=== PATIENT | female | born 1940 | race Caucasian/White ===

== ENCOUNTER → 2018-01-03 | Outpatient (CLI) | payer OTHER ==
[~2018-01-03] MED LIST: OPTIRAY 320 IV PRN
--- NOTE | 2018-01-03 12:20 | DIAGNOSTIC IMAGING REPORT ---
CHEST CTA for PULMONARY ARTERIES CT DOSE: 462.17 mGycm HISTORY: Dyspnea on exertion. TECHNIQUE: Multiaxial CT images of the chest were performed following the intravenous administration of contrast to evaluate the pulmonary arteries. Maximal intensity projection images were also obtained. A dose lowering technique was utilized adhering to the principles of ALARA. COMPARISON STUDY: None. FINDINGS: There is a 3 cm left thyroid nodule. Anterior midline subcutaneous catheter is partially visualized. Mild superior endplate compression deformities from T9 through T11. This is technically age indeterminate but likely old. No definite acute fractures identified. No pneumothorax. The central airways are patent. A few scattered linear densities within the lower lung zones. This favors scarring or subsegmental atelectasis. Otherwise, no focal lung consolidations to suggest pneumonia. The visualized liver and spleen are unremarkable. No mediastinal or hilar lymphadenopathy. No pleural or pericardial effusions. The heart is normal in size. Mild calcified plaque within the normal caliber thoracic aorta. No evidence for an aortic dissection. No filling defects within the pulmonary arteries to suggest pulmonary embolus. IMPRESSION: 1. No evidence for pulmonary embolus. 2. A 3 cm left thyroid nodule. Follow-up nonemergent thyroid ultrasound is recommended for further evaluation. 3. Mild superior endplate compression deformities from T9 through T11. These are technically age-indeterminate but likely old. Electronically signed by: Jarad Warner M.D. 01/03/2018 12:19 PM Dictated Date/Time: 01/03/2018 12:05 PM
[2018-01-03 14:50] LABS: BLOOD UREA NITROGEN 26 mg/dl (7-18); CALCIUM 9.4 mg/dl (8.5-10.1); CARBON DIOXIDE 29 mmol/L (21-32); CREATININE 0.72 mg/dl (0.60-1.20); GLUCOSE 85 mg/dl (70-99); POTASSIUM 4.1 mmol/L (3.5-5.1); SODIUM 139 mmol/L (136-145)
[2018-01-03 15:35] LABS: HEMATOCRIT 37.9 % (37-47); HEMOGLOBIN 12.6 g/dL (12.0-16.0); MEAN CELL VOLUME 93.8 fL (80-100); MEAN CORPUSCULAR HEMOGLOBIN 31.2 pg (25-34); MEAN CORPUSCULAR HGB CONC 33.2 g/dl (32-36); MEAN PLATELET VOLUME 13.9 fL (7.4-10.4); PLATELET COUNT 110 K/uL (130-400); RED CELL DISTRIBUTION WIDTH SD 48.2 fL (36.4-46.3); WHITE BLOOD COUNT 4.29 K/uL (4.8-10.8)
== END | disposition home or self-care (01) ==
LOC: C.CTS 11:16
PROVIDERS: ATTEND Internal Medicine
DX: R06.09 Other forms of dyspnea (principal); I10 Essential (primary) hypertension; E04.1 Nontoxic single thyroid nodule; M43.8X4 Other specified deforming dorsopathies, thoracic region

== ENCOUNTER 2020-04-14 15:38 | Inpatient (IN) ==
[2020-04-14] MEDS ORDERED: METOCLOPRAMIDE HCL INJ 5 MG/ML 2 ML VIAL IV STA (15:51)
[2020-04-14] MEDS ORDERED: FAMOTIDINE 20MG/5ML IV PUSH IV STA (15:51)
[2020-04-14] MEDS ORDERED: DiphenhydrAMINE HCL 50 MG/ML VIAL IV STA (15:51)
[2020-04-14] MEDS ORDERED: SODIUM CHLORIDE 0.9% 1000ML 1,000 ML IV ONE ×2 (15:55→21:06)
[2020-04-14 16:03] LABS: Mean Corpuscular Hgb Conc 33.3 g/dL (32-36)
[2020-04-14 16:10] LABS: Hematocrit (blood only) 38.1 % (37-47); Hemoglobin 12.7 g/dL (12.0-16.0); Mean Corpuscular Hemoglobin 30.8 pg (25-34); Mean Corpuscular Volume 92.3 fL (80-100); RDW Coefficient of Variation 13.7 % (11.5-14.5); RDW Standard Deviation 46.2 fL (36.4-46.3); Red Blood Count 4.13 M/uL (4.2-5.4); White Blood Count 8.04 K/uL (4.8-10.8)
[2020-04-14 16:17] LABS: INR 1.1 (0.9-1.1); Partial Thromboplastin Ratio 0.8; Partial Thromboplastin Time 21.7 Seconds (21.0-31.0); Prothrombin Time 11.4 Seconds (9.0-12.0)
--- NOTE | 2020-04-14 16:19 | XRay Report ---
XR chest 1V portable CLINICAL HISTORY: Atypical chest pain COMPARISON STUDY: 03/09/2020 FINDINGS: The heart is the upper limits of normal in size. There is mild interstitial thickening, lik alissa chronic. There is no lobar consolidation. There is a presumed shunt catheter visualized coursing across the chest.[There are no pleural effusions. IMPRESSION: No active disease in the chest. ACT 112: Negative or not required by law. Electronically signed by: Phoenix Escobar M.D. 04/14/2020 4:18 PM
[2020-04-14 16:26] LABS: Basophils # (auto) 0.02 K/uL (0-0.2); Basophils % (auto) 0.2 %; Eosinophils % (auto) 1.2 %; Immature Granulocytes # (auto) 0.02 K/uL (0.00-0.02); Immature Granulocytes % (auto) 0.2 %; Lymphocytes # (auto) 1.87 K/uL (1.2-3.4); Lymphocytes % (auto) 23.3 %; Monocytes # (auto) 0.44 K/uL (0.11-0.59); Monocytes % (auto) 5.5 %; Neutrophils # (auto) 5.59 K/uL (1.4-6.5); Neutrophils % (auto) 69.6 %; Platelet Count 123 K/uL (130-400); Platelet Estimate Decreased (Normal)
[2020-04-14 16:45] LABS: Alanine Aminotransferase 18 U/L (12-78); Albumin Level 3.4 gm/dl (3.4-5.0); Alkaline Phosphatase 75 U/L (45-117); BUN Creatinine Ratio 24.7 (10-20); Blood Urea Nitrogen 23 mg/dl (7-18); Calcium 9.3 mg/dl (8.5-10.1); Carbon Dioxide 21 mmol/L (21-32); Chloride 111 mmol/L (98-107); Creatinine Clr Calc Pharmacy 65.8 ml/min; Est GFR (African American) 67.8; Est GFR (Non-African American) 58.5; Globulin 3.3 gm/dl (2.5-4.0); Glucose 117 mg/dl (70-99); Lipase 91 U/L (73-393); Phosphorus 2.9 mg/dl (2.5-4.9); Sodium 142 mmol/L (136-145); Total Protein 6.7 gm/dl (6.4-8.2); Troponin I < 0.015 ng/ml (0-0.045)
[2020-04-14 17:09] LABS: Potassium 4.2 mmol/L (3.5-5.1)
[2020-04-14 17:14] LABS: Bilirubin Direct 0.2 mg/dl (0-0.2); Magnesium 2.4 mg/dl (1.8-2.4)
[2020-04-14] MEDS ORDERED: IOVERSOL 100ml IV ONE (17:14)
--- NOTE | 2020-04-14 17:34 | CT Scan Report ---
ABDOMEN AND PELVIS CT WITH IV CONTRAST CT DOSE: 985.59 mGy.cm HISTORY: Acute generalized abdominal pain with nausea and vomiting abd pain n/v TECHNIQUE: Multiaxial CT images of the abdomen and pelvis were performed following the IV administrat ion of 92 cc of Optiray 320, A dose lowering technique was utilized adhering to the principles of AL STEPH. COMPARISON STUDY: Chest radiograph of same day FINDINGS: Mild linear subsegmental bibasilar atelectasis/scarring. There is no pneumatosis or pneumoperitoneum. Imaged inferior cardiac chambers are unremarkable. The spleen, pancreas and adrenal glands are unrem arkable. Cholecystectomy. Intrahepatic and extrahepatic biliary ductal dilation is likely on a postsu rgical basis. The liver is otherwise unremarkable. Patency of the hepatic and portal veins. Renal sinus cysts are noted bilaterally. There is a punctate cortical calcification of the inferior p ole left kidney. Unremarkable urinary bladder. 1.2 cm calcified structure of the left hemipelvis is s uggestive of a calcified uterine fibroid. Mixed plaque of the abdominal aorta without aneurysm. No ad enopathy. There is a shunt catheter noted along the subcutaneous anterior abdomen which appears intact and coil s within the pelvis, distal tip within the mid central pelvis. Trace pelvic ascites is suggestive of functioning catheter. Small hiatal hernia. No bowel obstruction. Moderate fecal retention results in distention of the distal sigmoid and rectum. There is mild stranding surrounding the descending and s igmoid colon. Fluid-filled cecum. Noninflamed appendix. Scattered small bowel air-fluid levels. Soft tissues are unremarkable. Degenerative changes of the spine, pelvis and hips. Age-indeterminate howev er likely remote compression deformities at T11, L1, L3 and L4. Indeterminate ill-defined sclerosis i nvolves the left pedicle at T10. IMPRESSION: 1. Moderate fecal retention. Mild stranding surrounds the descending and sigmoid colon, equivocal for a mild associated colitis. 2. No small bowel obstruction. Scattered small bowel air-fluid levels are likely physiologic. A mild enteritis or ileus could appear similarly. 3. Noninflamed appendix. 4. Ventriculoperitoneal shunt catheter distal tip terminates in the pelvis. Trace pelvic ascites sugg ests functioning catheter. 5. Additional findings as above. ACT 112: Negative or not required by law. The above report was generated using voice recognition software. It may contain grammatical, syntax o r spelling errors. Electronically signed by: Chema Smiley M.D. 04/14/2020 5:33 PM
--- NOTE | 2020-04-14 18:14 | Emergency Department Note ---
Impression & Plan Colitis, Acute dehydration, Nausea & vomiting, Hematochezia ED Provider Note NAME: MATT BIANCHI AGE: 79 SEX: F ARRIVES VIA: Ambulance INFORMANT: Patient, ED PROVIDER(S): Cecil Espinosa MD CHIEF COMPLAINT: Abdominal pain, n/v PLAN: Disposition: Admit MEDICAL DECISION MAKING: The patient is a pleasant 79-year-old woman with a past medical history of hypertension, osteoarthritis, asthma, herniated disc, self-report of history of IBS where she reports episodes of abdominal pain with nausea who presents emergency department with acute onset of nausea and vomiting when she was eating a salad at [employer] and began to feel lightheaded. EMS found patient to have hypotensive in the 80s with heart rate in the 40s-50s which improved with IV fluid hydration. She reports feeling healthy prior to today and denies fevers, chills, cough congestion, chest pain, shortness of breath, headaches or dizziness. On arrival patient is uncomfortable but no acute distress, afebrile stable vital signs. She has generalized abdominal discomfort without discrete tenderness. EKG without overt acute ischemia. Chest x-ray negative acute process. WBC, H/H within normal limits. Platelets 123, similar to prior values. Chemistry without acidosis. Electrolytes and LFTs unremarkable. Troponin negative/undetectable. Lipase is not elevated. CT of abdomen pelvis demonstrates moderate fecal retention with stranding around the descending and sigmoid colon suggestive of colitis. Additional note of evidence of mild enteritis or ileus. Appendix is unremarkable. Upon reevaluation the patient was feeling significantly improved. Of note, she did have a formed brown stool but did have some scant amount of blood with this. There was no gross hemorrhage. Initially though to be related to straining which she reported as she did have a small anal fissure though hemorrhagic colitis versus internal hemorrhoid are also possible. However given she is improved with stable vital signs and the patient preferred to go home we did agree to con hot oiler outpatient follow-up. However the patient then did have another bowel movement this time more herve blood. At this time I did perform a rectal exam which did not demonstrate any significant gross blood from the rectum though did have stool that was Hemoccult positive. Suspect the patient's source of bleeding is likely more proximal consistent with the patient's colitis. Thus, given the patient's GI bleeding reasonable to admit the patient for further management. Stool cx and Cdiff order. The patient and daughter at bedside are agreeable at this time. Case was discussed with Dr. Overton, [facility] hospitalist, who will evaluate the patient for admission. Triage Nursing notes reviewed and agree them. Prior medical records reviewed Vital Signs: reviewed and remarkable for no significant abnormalities Differential diagnosis: Appendicitis, ovarian cyst, ovarian torsion, ectopic , TOA, PID, infections, diverticulitis, UTI, obstruction, mesenteric ischemia, aortic pathology, inflammatory bowel disease, renal colic, PUD, pancreatitis, biliary pathology, hernia, volvulus, constipation, as well as other pathologies. ER treatment provided: See below. Diagnostics interpreted by me: ECG: Sinus bradycardia, 51 bpm, no ectopy, no overt ST elevation or depression, QTC 453, QRS 92. Cardiac Monitoring: An order for continuous cardiac monitoring was placed and demonstrated Sinus bradycardia, 51 bpm, no ectopy. Laboratory studies: See below Imaging studies: XR chest 1V portable CLINICAL HISTORY: Atypical chest pain COMPARISON STUDY: 03/09/2020 FINDINGS: The heart is the upper limits of normal in size. There is mild interstitial thickening, likely chronic. There is no lobar consolidation. There is a presumed shunt catheter visualized coursing across the chest.[There are no pleural effusions. IMPRESSION: No active disease in the chest. ABDOMEN AND PELVIS CT WITH IV CONTRAST CT DOSE: 985.59 mGy.cm HISTORY: Acute generalized abdominal pain with nausea and vomiting abd pain n/v TECHNIQUE: Multiaxial CT images of the abdomen and pelvis were performed following the IV administration of 92 cc of Optiray 320, A dose lowering xuan hnique was utilized adhering to the principles of ALARA. COMPARISON STUDY: Chest radiograph of same day FINDINGS: Mild linear subsegmental bibasilar atelectasis/scarring. There is no pneumatosis or pneumoperitoneum. Imaged inferior cardiac chambers are unremarkable. The spleen, pancreas and adrenal glands are unremarkable. Cholecystectomy. Intrahepatic and extrahepatic biliary ductal dilation is likely on a postsurgical basis. The liver is otherwise unremarkable. Patency of the hepatic and portal veins. Renal sinus cysts are noted bilaterally. There is a punctate cortical calcification of the inferior pole left kidney. Unremarkable urinary bladder. 1.2 cm calcified structure of the left hemipelvis is suggestive of a calcified uterine fibroid. Mixed plaque of the abdominal aorta without aneurysm. No adenopathy. There is a shunt catheter noted along the subcutaneous anterior abdomen which appears intact and coils within the pelvis, distal tip within the mid central pelvis. Trace pelvic ascites is suggestive of functioning catheter. Small hiatal hernia. No bowel obstruction. Moderate fecal retention results in distention of the distal sigmoid and rectum. There is mild stranding surrounding the descending and sigmoid colon. Fluid-filled cecum. Noninflamed appendix. Scattered small bowel air-fluid levels. Soft tissues are unremarkable. Degenerative changes of the spine, pelvis and hips. Age-indeterminate however likely remote compression deformities at T11, L1, L3 and L4. Indeterminate ill- defined sclerosis involves the left pedicle at T10. IMPRESSION: 1. Moderate fecal retention. Mild stranding surrounds the descending and sigmoid colon, equivocal for a mild associated colitis. 2. No small bowel obstruction. Scattered small bowel air-fluid levels are likely physiologic. A mild enteritis or ileus could appear similarly. 3. Noninflamed appendix. 4. Ventriculoperitoneal shunt catheter distal tip terminates in the pelvis. Trace pelvic ascites suggests functioning catheter. 5. Additional findings as above. Consultation(s): Case was discussed with Dr. Overton, [facility] hospitalist, who will evaluate the patient for admission. HPI: The patient is a pleasant 79-year-old woman with a past medical history of hypertension, osteoarthritis, asthma, herniated disc, self-report of history of IBS where she reports episodes of abdominal pain with nausea who presents emergency department with acute onset of nausea and vomiting when she was eating a salad at [facility] and began to feel lightheaded. EMS found patient to have hypotension in the 80s with heart rate in the 40s-50s which improved with IV fluid hydration. She reports feeling healthy prior to today and denies fevers, chills, cough congestion, chest pain, shortness of breath, headaches or dizziness. ROS: See above HPI for pertinent positives & negatives. A total of 10 systems reviewed and were otherwise negative. PAST MEDICAL HISTORY:See Below PAST SURGICAL HISTORY:See Below FAMILY HISTORY:See Below SOCIAL HISTORY:See Below HOME MEDICATIONS:See Below ALLERGIES:See Below VITALS:See Below PHYSICAL EXAMINATION: GENERAL: Awake, alert, uncomfortable-appearing, in no distress HENT: Normocephalic, atraumatic. Oropharynx with dry mucous membranes and otherwise unremarkable. EYES: Normal conjunctiva. Sclera non-icteric. NECK: Supple. No nuchal rigidity. FROM. No JVD. RESPIRATORY: Clear to auscultation. CARDIAC: Regular rate, normal rhythm. Extremities warm and well perfused. Pulses equal. ABDOMEN: Soft, non-distended. Generalized abdominal discomfort without discrete tenderness to palpation. No rebound or guarding. No masses. RECTAL: Scant brown stool, scant streaks of red blood, hemoccult positive. small punctate anal fissure @ 12 o'clock position. MUSCULOSKELETAL: Chest examination reveals no tenderness. The back is symmetrical on inspection without obvious abnormality. There is no CVA tenderness to palpation. No joint edema. LOWER EXTREMITIES: Calves are equal size bilaterally and non-tender. No edema. No discoloration. NEURO: Normal sensorium. No sensory or motor deficits noted. SKIN: No rash or jaundice noted. Cecil Espinosa MD Past Med/Surg History Medical History Asthma RARELY USES PRN INH Hearing deficit BL JONES History of benign breast biopsy History of hydrocephalus S/P SHUNT PLACEMENT - 2014 - CAUSE? Hypertension Osteoarthritis SOB (shortness of breath) on exertion Valvular heart disease PT UNABLE TO PROVIDE SPECIFICS - DOES NOT FOLLOW W/ CARDIO - PCP MONITORING - ECHO DONE SPRING 2018 [facility] Surgical History History of back surgery LUMBAR History of cataract surgery History of cholecystectomy History of colonoscopy History of esophagogastroduodenoscopy (EGD) History of hammertoe correction History of lumpectomy History of oophorectomy, unilateral History of sinus surgery Presence of intracranial shunt Social History Smoking Status: Never smoker Second Hand Exposure: Yes ( A CHILD); Hx Alcohol Use: No Hx Substance Use: No Preferred Language: Malay Communication Ability: Effective Lance Crewmember Required: No Beliefs That Will Affect Care: None Current Living Situation: Alone Other Information That Helps Us Care for You: No Feels Safe at Home: Yes Safety Concerns: Feels Safe At This Time Allergies Allergies Allergy/AdvReac Type Severity Reaction Status Date / Time latex Allergy Unknown ITCHING Verified 04/14/20 19:10 Penicillins Allergy Unknown SOB/HIVES Verified 04/14/20 19:10 vancomycin Allergy Unknown Rash Verified 04/14/20 19:10 codeine AdvReac Unknown Drowsy Verified 04/14/20 19:10 Home Meds Home Medications Medication Instructions Recorded Confirmed aspirin 81 mg PO QAM 03/20/19 04/14/20 calcium carbonate [Calcium 600] 600 mg PO BID 03/20/19 04/14/20 cetirizine 5 mg PO QPM 03/20/19 04/14/20 cholecalciferol (vitamin D3) 1,000 unit PO QAM 03/20/19 04/14/20 [Vitamin D3] lisinopril 10 mg PO QPM 03/20/19 04/14/20 multivitamin 1 tab PO QAM 03/20/19 04/14/20 baclofen 10 mg PO BID PRN 04/14/20 04/14/20 budesonide-formoterol [Symbicort] 2 puff INHALATION BID PRN 04/14/20 04/14/20 fluoxetine 20 mg PO HS 04/14/20 04/14/20 fluticasone propion-salmeterol 1 inh INHALATION BID PRN 04/14/20 04/14/20 [Advair Diskus] fluticasone propionate 2 spray INTRANASAL DAILY PRN 04/14/20 04/14/20 montelukast 10 mg PO HS 04/14/20 04/14/20 Previous Rx's Medication Instructions Recorded famotidine 20 mg PO BID #20 tab 04/14/20 ondansetron 4 mg PO Q6H PRN #14 tab 04/14/20 Results & Data (ED) Vital Signs Vital Signs - 24 hr 04/14/20 15:43 04/14/20 16:00 04/14/20 16:17 Temperature 36.4 C L Temperature Source Oral Pulse Rate 55 L Pulse Rate [Apical] 52 L Respiratory Rate 18 18 Respiratory Effort / Characteristics Respiratory Depth Blood Pressure 121/58 L Blood Pressure [Right Arm] 121/74 Blood Pressure Mean 79 Blood Pressure Mean [Right Arm] 89 Pulse Oximetry 99 98 98 Oxygen Delivery Method Room Air Room Air Room Air Sepsis Recent Fever Within 48 Hours No Sepsis New/Unexplained Change in Mental Status N/A Sepsis Action Taken by Nursing No Action Required 04/14/20 16:58 04/14/20 17:33 04/14/20 18:31 Temperature Temperature Source Pulse Rate Pulse Rate [Apical] 65 63 66 Respiratory Rate 18 18 18 Respiratory Effort / Characteristics Non-Labored Non-Labored Respiratory Depth Normal Normal Blood Pressure Blood Pressure [Right Arm] 109/54 L 167/79 H 156/65 H Blood Pressure Mean Blood Pressure Mean [Right Arm] 72 108 95 Pulse Oximetry 98 99 98 Oxygen Delivery Method Room Air Room Air Room Air Sepsis Recent Fever Within 48 Hours Sepsis New/Unexplained Change in Mental Status Sepsis Action Taken by Nursing 04/14/20 19:15 04/14/20 20:04 Temperature Temperature Source Pulse Rate Pulse Rate [Apical] 68 71 Respiratory Rate 18 18 Respiratory Effort / Characteristics Respiratory Depth Blood Pressure Blood Pressure [Right Arm] 146/93 H 153/62 H Blood Pressure Mean Blood Pressure Mean [Right Arm] 110 92 Pulse Oximetry 98 98 Oxygen Delivery Method Room Air Room Air Sepsis Recent Fever Within 48 Hours Sepsis New/Unexplained Change in Mental Status Sepsis Action Taken by Nursing Laboratory Data Attestation: I reviewed the patient's lab results. Result diagrams: 04/14/20 20:34 Lab Results 04/14/20 04/14/20 04/14/20 Range/Units 15:50 15:50 15:50 WBC 8.04 (4.8-10.8) K/uL RBC 4.13 L (4.2-5.4) M/uL Hgb 12.7 (12.0-16.0) g/dL Hct 38.1 (37-47) % MCV 92.3 (80-100) fL MCH 30.8 (25-34) pg MCHC 33.3 (32-36) g/dL RDW Std Deviation 46.2 (36.4-46.3) fL RDW Coeff of Evelyn 13.7 (11.5-14.5) % Plt Count 123 L (130-400) K/uL Immature Gran % (Auto) 0.2 % Neut % (Auto) 69.6 % Lymph % (Auto) 23.3 % [place] % (Auto) 5.5 % Eos % (Auto) 1.2 % Baso % (Auto) 0.2 % Neut # (Auto) 5.59 (1.4-6.5) K/uL Lymph # (Auto) 1.87 (1.2-3.4) K/uL [place] # (Auto) 0.44 (0.11-0.59) K/uL Eos # (Auto) 0.10 (0-0.5) K/uL Baso # (Auto) 0.02 (0-0.2) K/uL Immature Gran # (Auto) 0.02 (0.00-0.02) K/uL Platelet Estimate Decreased L (Normal) PT 11.4 (9.0-12.0) Seconds INR 1.1 (0.9-1.1) APTT 21.7 (21.0-31.0) Seconds PTT Ratio 0.8 Sodium 142 (136-145) mmol/L Potassium TNP Chloride 111 H (98-107) mmol/L Carbon Dioxide 21 (21-32) mmol/L Anion Gap 10.0 (3-11) BUN 23 H (7-18) mg/dl Creatinine 0.94 (0.6-1.2) mg/dl Est Cr Clr Drug Dosing 65.8 ml/min Est GFR ( Amer) 67.8 Est GFR (Non-Af Amer) 58.5 BUN/Creatinine Ratio 24.7 H (10-20) Glucose 117 H (70-99) mg/dl Calcium 9.3 (8.5-10.1) mg/dl Phosphorus 2.9 (2.5-4.9) mg/dl Magnesium TNP Total Bilirubin 1.0 (0.2-1) mg/dl Direct Bilirubin TNP AST TNP ALT 18 (12-78) U/L Alkaline Phosphatase 75 (45-117) U/L Troponin I < 0.015 (0-0.045) ng/ml Total Protein 6.7 (6.4-8.2) gm/dl Albumin 3.4 (3.4-5.0) gm/dl Globulin 3.3 (2.5-4.0) gm/dl Albumin/Globulin Ratio 1.0 (0.9-2) Lipase 91 (73-393) U/L TSH 2.110 (0.300-4.500) uIu/ml Stl C. diff Tox B Gene (Neg) 04/14/20 04/14/20 Range/Units 16:45 19:15 WBC (4.8-10.8) K/uL RBC (4.2-5.4) M/uL Hgb (12.0-16.0) g/dL Hct (37-47) % MCV (80-100) fL MCH (25-34) pg MCHC (32-36) g/dL RDW Std Deviation (36.4-46.3) fL RDW Coeff of Evelyn (11.5-14.5) % Plt Count (130-400) K/uL Immature Gran % (Auto) % Neut % (Auto) % Lymph % (Auto) % [place] % (Auto) % Eos % (Auto) % Baso % (Auto) % Neut # (Auto) (1.4-6.5) K/uL Lymph # (Auto) (1.2-3.4) K/uL [place] # (Auto) (0.11-0.59) K/uL Eos # (Auto) (0-0.5) K/uL Baso # (Auto) (0-0.2) K/uL Immature Gran # (Auto) (0.00-0.02) K/uL Platelet Estimate (Normal) PT (9.0-12.0) Seconds INR (0.9-1.1) APTT (21.0-31.0) Seconds PTT Ratio Sodium (136-145) mmol/L Potassium 4.2 Chloride (98-107) mmol/L Carbon Dioxide (21-32) mmol/L Anion Gap (3-11) BUN (7-18) mg/dl Creatinine (0.6-1.2) mg/dl Est Cr Clr Drug Dosing ml/min Est GFR ( Amer) Est GFR (Non-Af Amer) BUN/Creatinine Ratio (10-20) Glucose (70-99) mg/dl Calcium (8.5-10.1) mg/dl Phosphorus (2.5-4.9) mg/dl Magnesium 2.4 Total Bilirubin (0.2-1) mg/dl Direct Bilirubin 0.2 AST 13 L ALT (12-78) U/L Alkaline Phosphatase (45-117) U/L Troponin I (0-0.045) ng/ml Total Protein (6.4-8.2) gm/dl Albumin (3.4-5.0) gm/dl Globulin (2.5-4.0) gm/dl Albumin/Globulin Ratio (0.9-2) Lipase (73-393) U/L TSH (0.300-4.500) uIu/ml Stl C. diff Tox B Gene Negative Cdiff Gene (Neg) Administered Medications Cetirizine HCl (Cetirizine Hcl 10 Mg Tablet) 5 mg PO QPM JULIET Stop: 05/14/20 21:59 Last Admin: 04/14/20 22:15 Dose: 5 mg Documented by: [id number] Fluoxetine HCl (Fluoxetine Hcl 20 Mg Cap) 20 mg PO HS JULIET Stop: 05/14/20 21:59 Last Admin: 04/14/20 22:15 Dose: 20 mg Documented by: [id number] Sodium Chloride (Nss 1000ml) 1,000 mls @ 75 mls/hr IV .[id number] ONE Stop: 04/15/20 10:25 Last Admin: 04/14/20 21:30 Dose: 75 mls/hr Documented by: [id number] Promethazine HCl 12.5 mg/ (Sodium Chloride) 50.5 mls @ 202 mls/hr IV Q6H PRN PRN Reason: Nausea And Vomiting Stop: 05/14/20 21:05 Last Infusion: 04/14/20 22:33 Dose: 0 mls/hr Documented by: [id number] Admin: 04/14/20 22:14 Dose: 202 mls/hr Documented by: [id number] Lisinopril (Lisinopril 2.5 Mg Tab) 2.5 mg PO QPM JULIET Stop: 05/14/20 21:59 Last Admin: 04/14/20 22:14 Dose: 2.5 mg Documented by: [id number] Montelukast Sodium (Montelukast Sodium 10 Mg Tablet) 10 mg PO JULIET Stop: 05/14/20 21:59 Last Admin: 04/14/20 22:14 Dose: 10 mg Documented by: [id number] Discontinued Medications Diphenhydramine HCl (Diphenhydramine Hcl 50 Mg/Ml Vial) 25 mg IV NOW STA Stop: 04/14/20 15:52 Last Admin: 04/14/20 16:16 Dose: 25 mg Documented by: [id number] Famotidine (Famotidine 20mg/5ml Iv Push) 20 mg IV ONE STA Stop: 04/14/20 15:52 Last Admin: 04/14/20 16:16 Dose: 20 mg Documented by: [id number] Sodium Chloride (Nss 1000ml) 1,000 mls @ 999 mls/hr IV .[id number] ONE Stop: 04/14/20 16:55 Last Infusion: 04/14/20 17:15 Dose: 0 mls/hr Documented by: [id number] Admin: 04/14/20 16:15 Dose: 999 mls/hr Documented by: [id number] Ioversol (Ioversol 100ml) 92 ml IV ONCE ONE Stop: 04/14/20 17:15 Last Admin: 04/14/20 17:15 Dose: 92 ml Documented by: [id number] Metoclopramide HCl (Metoclopramide Hcl Inj 5 Mg/Ml 2 Ml Vial) 10 mg IV NOW STA Stop: 04/14/20 15:52 Last Admin: 04/14/20 16:16 Dose: 10 mg Documented by: [id number] Ondansetron HCl (Ondansetron Home Pack 4mg Od Tab) 1 homepack PO NOW ONE Stop: 04/14/20 18:49 Last Admin: 04/14/20 19:21 Dose: Not Given Documented by: [id number] Blood Pressure Blood Pressure Findings: Elevated blood pressure Blood Pressure Disposition: elevated BP felt to be situational Discharge Plan Visit Data Chief Complaint: Vomiting Stated Complaint: VOMITING ED Provider: Cecil Espinosa Discharge Problem: Colitis, Acute dehydration, Nausea & vomiting, Hematochezia Patient Disposition: Admitted As Inpatient Condition: Good Discharge Instructions Interventions: ED Discharge Assessment Last Done: 04/14/20 20:42 Discharge Problem: Nausea & vomiting Qualifiers: Vomiting type: unspecified Vomiting Intractability: non-intractable Qualified Code(s): R11.2 - Nausea with vomiting, unspecified
[2020-04-14] MEDS ORDERED: ONDANSETRON HOME PACK 4MG OD TAB PO ONE (18:48)
--- NOTE | 2020-04-14 20:05 | History & Physical Report ---
Date of Service April 14, 2020 Assessment & Plan (1) Colitis: Hemorrhagic colitis secondary to foodborne illness Patient not septic for now. Currently hemodynamically stable after initial fluid resuscitation. 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 It may contain grammatical or spelling errors. Kindly contact undersigned for clarification of any documentation item in question. History of Present Illness Chief Complaint: Abdominal pain Primary Care Provider: Tosin Art MD History obtained from patient, family, and records. 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 Patient developed sudden onset achy abdominal discomfort associated with emesis 30 minutes after consuming a salad but from a local restaurant. Patient initially constipated at home. Lightheadedness symptoms made patient lie down on the floor. EMS called. Initial SBP 80s. Patient denies chest pain, S OB. No known sick contacts/ recent out-of-town travel/antibiotic Rx.. Patient brought to the ER for evaluation. Has had 3 bloody bowel movements since. Medical History as above 2018 normal colonoscopy Surgical History : CEMENT TESTER ASSISTANT shunt placement, breast lesion excision, oophorectomy, cataract surgery, cholecystectomy Family History : Breast cancer, mitral valve prolapse Personal/Social history : Non-smoker, no EtOH intake, homemaker in her younger years Allergies Allergy/AdvReac Type Severity Reaction Status Date / Time latex Allergy Unknown ITCHING Verified 04/14/20 19:10 Penicillins Allergy Unknown SOB/HIVES Verified 04/14/20 19:10 vancomycin Allergy Unknown Rash Verified 04/14/20 19:10 codeine AdvReac Unknown Drowsy Verified 04/14/20 19:10 Home Medications Home Medications Medication Instructions Recorded Confirmed Type aspirin 81 mg PO QAM 03/20/19 04/14/20 History calcium carbonate [Calcium 600] 600 mg PO BID 03/20/19 04/14/20 History cetirizine 5 mg PO QPM 03/20/19 04/14/20 History cholecalciferol (vitamin D3) 1,000 unit PO QAM 03/20/19 04/14/20 History [Vitamin D3] lisinopril 10 mg PO QPM 03/20/19 04/14/20 History multivitamin 1 tab PO QAM 03/20/19 04/14/20 History baclofen 10 mg PO BID PRN 04/14/20 04/14/20 History budesonide-formoterol [Symbicort] 2 puff INHALATION BID PRN 04/14/20 04/14/20 History famotidine 20 mg PO BID #20 tab 04/14/20 Rx fluoxetine 20 mg PO HS 04/14/20 04/14/20 History fluticasone propion-salmeterol 1 inh INHALATION BID PRN 04/14/20 04/14/20 History [Advair Diskus] fluticasone propionate 2 spray INTRANASAL DAILY PRN 04/14/20 04/14/20 History montelukast 10 mg PO HS 04/14/20 04/14/20 History ondansetron 4 mg PO Q6H PRN #14 tab 04/14/20 Rx Past Med/Surg History Medical History Asthma RARELY USES PRN INH Hearing deficit BL JONES History of benign breast biopsy History of hydrocephalus S/P SHUNT PLACEMENT - 2014 - CAUSE? Hypertension Osteoarthritis SOB (shortness of breath) on exertion Valvular heart disease PT UNABLE TO PROVIDE SPECIFICS - DOES NOT FOLLOW W/ CARDIO - PCP MONITORING - ECHO DONE SPRING 2018 [facility] Surgical History History of back surgery LUMBAR History of cataract surgery History of cholecystectomy History of colonoscopy History of esophagogastroduodenoscopy (EGD) History of hammertoe correction History of lumpectomy History of oophorectomy, unilateral History of sinus surgery Presence of intracranial shunt Social History Smoking Status: Never smoker Second Hand Exposure: Yes ( A CHILD); Hx Alcohol Use: No Hx Substance Use: No Preferred Language: Ukrainian Communication Ability: Effective Cloth Mender Required: No Beliefs That Will Affect Care: None Current Living Situation: Alone Other Information That Helps Us Care for You: No Feels Safe at Home: Yes Safety Concerns: Feels Safe At This Time Review of Systems Review of Systems: As per HPI, all 10 systems reviewed, all other ROS negative Physical Exam Physical Exam: GENERAL: Comfortable, pleasant, slightly hard of hearing, obese, no respiratory distress SKIN: Normal color, warm HEENT: [place] palpebral conjunctivae, no ptosis, dry buccal mucosa NECK : Supple, no tenderness CHEST : CTA, no tenderness HEART : RRR, no obvious murmurs ABDOMEN: Some distention, minimal hypogastric tenderness EXTREMITIES : No LE swelling/tenderness, no other conspicuous deformities noted NEUROLOGIC : Coherent, no facial asymmetry, mild hearing impairment, no other gross focality Results & Data Results & Data ([facility]) Vital Signs (Past 12 Hours) Vital Signs Temp Pulse Pulse Resp BP BP Pulse Ox 04/14/20 20:04 71 18 153/62 H 98 04/14/20 19:15 68 18 146/93 H 98 04/14/20 18:31 66 18 156/65 H 98 04/14/20 17:33 63 18 167/79 H 99 04/14/20 16:58 65 18 109/54 L 98 04/14/20 16:17 52 L 18 121/74 98 04/14/20 16:00 98 04/14/20 15:43 36.4 C L 55 L 18 121/58 L 99 Laboratory Results Laboratory Results WBC 8.04 K/uL (4.8-10.8) 04/14/20 15:50 RBC 4.13 M/uL (4.2-5.4) L 04/14/20 15:50 Hgb 12.7 g/dL (12.0-16.0) 04/14/20 15:50 Hct 38.1 % (37-47) 04/14/20 15:50 MCV 92.3 fL (80-100) 04/14/20 15:50 MCH 30.8 pg (25-34) 04/14/20 15:50 MCHC 33.3 g/dL (32-36) 04/14/20 15:50 RDW Std Deviation 46.2 fL (36.4-46.3) 04/14/20 15:50 RDW Coeff of Evelyn 13.7 % (11.5-14.5) 04/14/20 15:50 Plt Count 123 K/uL (130-400) L 04/14/20 15:50 Immature Gran % (Auto) 0.2 % 04/14/20 15:50 Neut % (Auto) 69.6 % 04/14/20 15:50 Lymph % (Auto) 23.3 % 04/14/20 15:50 [place] % (Auto) 5.5 % 04/14/20 15:50 Eos % (Auto) 1.2 % 04/14/20 15:50 Baso % (Auto) 0.2 % 04/14/20 15:50 Neut # (Auto) 5.59 K/uL (1.4-6.5) 04/14/20 15:50 Lymph # (Auto) 1.87 K/uL (1.2-3.4) 04/14/20 15:50 [place] # (Auto) 0.44 K/uL (0.11-0.59) 04/14/20 15:50 Eos # (Auto) 0.10 K/uL (0-0.5) 04/14/20 15:50 Baso # (Auto) 0.02 K/uL (0-0.2) 04/14/20 15:50 Immature Gran # (Auto) 0.02 K/uL (0.00-0.02) 04/14/20 15:50 Platelet Estimate Decreased (Normal) L 04/14/20 15:50 PT 11.4 Seconds (9.0-12.0) 04/14/20 15:50 INR 1.1 (0.9-1.1) 04/14/20 15:50 APTT 21.7 Seconds (21.0-31.0) 04/14/20 15:50 PTT Ratio 0.8 04/14/20 15:50 Sodium 142 mmol/L (136-145) 04/14/20 15:50 Potassium 4.2 mmol/L (3.5-5.1) 04/14/20 16:45 Chloride 111 mmol/L (98-107) H 04/14/20 15:50 Carbon Dioxide 21 mmol/L (21-32) 04/14/20 15:50 Anion Gap 10.0 (3-11) 04/14/20 15:50 BUN 23 mg/dl (7-18) H 04/14/20 15:50 Creatinine 0.94 mg/dl (0.6-1.2) 04/14/20 15:50 Est Cr Clr Drug Dosing 65.8 ml/min 04/14/20 15:50 Est GFR ( Amer) 67.8 04/14/20 15:50 Est GFR (Non-Af Amer) 58.5 04/14/20 15:50 BUN/Creatinine Ratio 24.7 (10-20) H 04/14/20 15:50 Glucose 117 mg/dl (70-99) H 04/14/20 15:50 Calcium 9.3 mg/dl (8.5-10.1) 04/14/20 15:50 Phosphorus 2.9 mg/dl (2.5-4.9) 04/14/20 15:50 Magnesium 2.4 mg/dl (1.8-2.4) 04/14/20 16:45 Total Bilirubin 1.0 mg/dl (0.2-1) 04/14/20 15:50 Direct Bilirubin 0.2 mg/dl (0-0.2) 04/14/20 16:45 AST 13 U/L (15-37) L 04/14/20 16:45 ALT 18 U/L (12-78) 04/14/20 15:50 Alkaline Phosphatase 75 U/L (45-117) 04/14/20 15:50 Troponin I < 0.015 ng/ml (0-0.045) 04/14/20 15:50 Total Protein 6.7 gm/dl (6.4-8.2) 04/14/20 15:50 Albumin 3.4 gm/dl (3.4-5.0) 04/14/20 15:50 Globulin 3.3 gm/dl (2.5-4.0) 04/14/20 15:50 Albumin/Globulin Ratio 1.0 (0.9-2) 04/14/20 15:50 Lipase 91 U/L (73-393) 04/14/20 15:50 TSH 2.110 uIu/ml (0.300-4.500) 04/14/20 15:[address] abdomen pelvis: 1. Moderate fecal retention. Mild stranding surrounds the descending and sigmoid colon, equivocal for a mild associated colitis. 2. No small bowel obstruction. Scattered small bowel air-fluid levels are likely physiologic. A mild enteritis or ileus could appear similarly. 3. Noninflamed appendix. 4. Ventriculoperitoneal shunt catheter distal tip terminates in the pelvis. Trace pelvic ascites suggests functioning catheter. Chest x-ray : No active disease EKG as per my interpretation : Rate 50, sinus bradycardia, normal axis, no ischemia
[2020-04-14 20:41] LABS: Hematocrit (blood only) 37.9 % (37-47); Hemoglobin 12.7 g/dL (12.0-16.0)
[2020-04-14] MEDS ORDERED: TRAMADOL HCL 50 MG TABLET PO PRN (21:06)
[2020-04-14] MEDS ORDERED: FLUTICASONE/SALMETEROL 250/50 (ADVAIR) 14 PUFF/1 INHALER INH PRN (21:06)
[2020-04-14] MEDS ORDERED: FLUTICASONE PROPIONATE NA SPR 16 GM BTL PRN (21:06)
[2020-04-14] MEDS ORDERED: PROMETHAZINE HCL 12.5 MG in SODIUM CHLORIDE 0.9% 50 ML IV PRN (21:06)
[2020-04-14] MEDS ORDERED: ACETAMINOPHEN 325 MG TAB PO PRN (21:06)
[2020-04-14] MEDS ORDERED: MoRPHine SULFATE 2 MG/ML CARP IV PRN (21:13)
[2020-04-14] MEDS: MONTELUKAST SODIUM 10 MG TABLET PO SCH (22:14)
[2020-04-14] MEDS: FLUOXETINE HCL 20 MG CAP PO SCH (22:15)
[2020-04-14] MEDS: CETIRIZINE HCL 10 MG TABLET PO SCH (22:15)
[2020-04-15 06:45] LABS: Mean Corpuscular Hgb Conc 33.2 g/dL (32-36)
[2020-04-15 06:55] LABS: Hematocrit (blood only) 36.7 % (37-47); Hemoglobin 12.2 g/dL (12.0-16.0); Mean Corpuscular Hemoglobin 31.4 pg (25-34); Mean Corpuscular Volume 94.3 fL (80-100); RDW Coefficient of Variation 13.8 % (11.5-14.5); RDW Standard Deviation 47.5 fL (36.4-46.3); Red Blood Count 3.89 M/uL (4.2-5.4); White Blood Count 10.13 K/uL (4.8-10.8)
[2020-04-15 07:09] LABS: BUN Creatinine Ratio 27.8 (10-20); Calcium 8.8 mg/dl (8.5-10.1); Creatinine Clr Calc Pharmacy 83.5 ml/min; Est GFR (African American) 90.6; Est GFR (Non-African American) 78.1
[2020-04-15 07:12] LABS: Basophils # (auto) 0.02 K/uL (0-0.2); Basophils % (auto) 0.2 %; Eosinophils # (auto) 0.01 K/uL (0-0.5); Eosinophils % (auto) 0.1 %; Immature Granulocytes # (auto) 0.02 K/uL (0.00-0.02); Immature Granulocytes % (auto) 0.2 %; Lymphocytes # (auto) 0.74 K/uL (1.2-3.4); Lymphocytes % (auto) 7.3 %; Monocytes # (auto) 0.73 K/uL (0.11-0.59); Monocytes % (auto) 7.2 %; Neutrophils # (auto) 8.61 K/uL (1.4-6.5); Platelet Count 106 K/uL (130-400); Platelet Estimate Decreased (Normal)
[2020-04-15] MEDS: MULTIVITAMIN TAB PO SCH (08:29)
[2020-04-15] MEDS: FLUTICASONE/VILANTEROL 100/25MCG 14 PUFFS/INHALER INH SCH (08:29)
[2020-04-15] MEDS ORDERED: POLYETHYLENE (MIRALAX) 17 GM PACK PO PRN (08:32)
[2020-04-15] MEDS: DOCUSATE SODIUM 100 MG CAP PO SCH ×2 (09:32→20:31)
[2020-04-15 12:09] LABS: Hematocrit (blood only) 35.1 % (37-47); Hemoglobin 11.7 g/dL (12.0-16.0)
[2020-04-15] MEDS ORDERED: SODIUM CHLORIDE 0.9% 500 ML IV ONE (12:12)
--- NOTE | 2020-04-15 15:16 | Hospitalist Progress Note ---
Date of Service April 15, 2020 Assessment & Plan (1) Colitis: Hemorrhagic colitis ? Secondary to foodborne illness -- CT ABD:Moderate fecal retention. Mild stranding surrounds the descending and sigmoid colon, equivocal for a mild associated colitis. No small bowel obstruction. Scattered small bowel air-fluid levels are likely physiologic. A mild enteritis or ileus could appear similarly. Noninflamed appendix. Ventriculoperitoneal shunt catheter distal tip terminates in the pelvis. Trace pelvic ascites suggests functioning catheter. --Stool Studies: Negative --Received IV fluids --Started on PPI --Monitor H&H and transfuse PRBCs as needed --We will consider GI evaluation if continues to have bleeding --Will need GI follow-up as outpatient for colonoscopy --Bowel regimen for constipation --Hb:11.7 today Hypertension Stable Continue lisinopril 2.5 mg daily NPH S/P EDGER RUNNER shunt placement Shunt catheter seem to be functioning on Imaging Chronic Thrombocytopenia Monitor Platelets DVT Px: SCDs Re: GI bleed Code Status Full code Disposition Expect to discharge home when medically stable Admission and Anticipated Discharge Date Admission Date: April 14, 2020 Subjective Patient is seen and examined at bedside Complaints of having minimal abdominal discomfort Tolerating diet States having few clots in her stools this morning Denies any significant bleeding Also denies any chest pain, shortness of breath, dizziness, nausea, abdominal pain Offers no other complaints Updated family over phone Review of Systems Review of Systems: All systems reviewed & are unremarkable except as noted in HPI & below Physical Exam Physical Exam: Physical Exam: Vitals signs as noted above General Appearance:Moderately built and nourished, no apparent distress Head: normocephalic, Atraumatic, +Hearing impairment Eyes: normal inspection, EOMI Neck: supple, Trachea midline Respiratory/Chest: Normal breath sounds, CTA Cardiovascular: S1, S2, No murmur Abdomen/GI:Soft, Mild tender, non distended, Bowel sounds present Extremities/Musculoskelatal:normal inspection, no edema Neurologic/Psych:AAOX3, grossly no focal neurological deficits Skin: normal color, warm Results & Data Results & Data ([facility]) Vital Signs (Past 12 Hours) Vital Signs Temp Pulse Pulse Resp BP BP Pulse Ox 04/15/20 14:49 64 04/15/20 11:58 36.9 C 92 H 18 124/71 98 04/15/20 09:00 67 04/15/20 07:12 37.1 C 65 16 117/62 98 04/15/20 03:09 37.1 C 69 15 125/57 L 95 Laboratory Results Short CBC 04/14/20 04/14/20 04/15/20 Range/Units 15:50 20:34 05:43 WBC 8.04 10.13 (4.8-10.8) K/uL Hgb 12.7 12.7 12.2 (12.0-16.0) g/dL Hct 38.1 37.9 36.7 L (37-47) % Plt Count 123 L 106 L (130-400) K/uL 04/15/20 Range/Units 11:59 WBC (4.8-10.8) K/uL Hgb 11.7 L (12.0-16.0) g/dL Hct 35.1 L (37-47) % Plt Count (130-400) K/uL BMP 04/14/20 04/14/20 04/15/20 15:50 16:45 05:43 Sodium 142 141 Potassium TNP 4.2 4.0 Chloride 111 H 111 H Carbon Dioxide 21 23 BUN 23 H 21 H Creatinine 0.94 0.74 Glucose 117 H 125 H Calcium 9.3 8.8 Cardiac Enzymes 04/14/20 Range/Units 15:50 Troponin I < 0.015 (0-0.045) ng/ml Liver Function 04/14/20 04/14/20 Range/Units 15:50 16:45 Total Bilirubin 1.0 (0.2-1) mg/dl Direct Bilirubin TNP 0.2 AST TNP 13 L ALT 18 (12-78) U/L Alkaline Phosphatase 75 (45-117) U/L Albumin 3.4 (3.4-5.0) gm/dl
[2020-04-15] MEDS ORDERED: PANTOprazole 40 MG TAB PO SCH (15:30)
[2020-04-15] MEDS ORDERED: SODIUM CHLORIDE 0.9% 250 ML IV PRN (15:41)
[2020-04-15] MEDS ORDERED: SODIUM CHLORIDE 0.9% 500 ML IV SCH (15:45)
[2020-04-15] MEDS: PANTOprazole 40 MG in SYRINGE 0 ML IV SCH ×2 (16:10→20:30)
[2020-04-15] MEDS: SODIUM CHLORIDE 0.9% 1,000 ML IV SCH (16:15)
[2020-04-15 20:18] LABS: Hematocrit (blood only) 36.6 % (37-47); Hemoglobin 11.5 g/dL (12.0-16.0)
[2020-04-15] MEDS: MONTELUKAST SODIUM 10 MG TABLET PO SCH (20:31)
[2020-04-15] MEDS: FLUOXETINE HCL 20 MG CAP PO SCH (20:32)
[2020-04-15] MEDS: CETIRIZINE HCL 10 MG TABLET PO SCH (20:32)
--- NOTE | 2020-04-15 22:01 | Electrocardiogram Report ---
Test Reason : Blood Pressure : / mmHG Vent. Rate : 051 BPM Atrial Rate : 051 BPM P-R Int : 180 ms QRS Dur : 092 ms QT Int : 492 ms P-R-T Axes : 070 060 031 degrees QTc Int : 453 ms Sinus bradycardia Otherwise normal ECG No previous ECGs available Confirmed by Lawrence Liao ([id number]) on 04/15/2020 10:01:21 PM Referred By: Confirmed By:Lawrence Liao
[2020-04-16] MEDS: SODIUM CHLORIDE 0.9% 1,000 ML IV SCH (04:35)
[2020-04-16 06:26] LABS: Hematocrit (blood only) 33.1 % (37-47); Mean Corpuscular Hemoglobin 30.7 pg (25-34); Mean Corpuscular Hgb Conc 33.2 g/dL (32-36); Mean Corpuscular Volume 92.5 fL (80-100); Mean Platelet Volume 13.8 fL (7.4-10.4); Platelet Count 85 K/uL (130-400); Platelet Estimate Decreased (Normal); RDW Coefficient of Variation 13.9 % (11.5-14.5); RDW Standard Deviation 47.2 fL (36.4-46.3); Red Blood Count 3.58 M/uL (4.2-5.4); White Blood Count 9.79 K/uL (4.8-10.8)
[2020-04-16 06:40] LABS: BUN Creatinine Ratio 14.8 (10-20); Calcium 8.2 mg/dl (8.5-10.1); Creatinine Clr Calc Pharmacy 96.7 ml/min; Est GFR (African American) 99.8; Est GFR (Non-African American) 86.1; Potassium 3.4 mmol/L (3.5-5.1)
[2020-04-16] MEDS: PANTOprazole 40 MG in SYRINGE 0 ML IV SCH ×2 (07:54→20:32)
[2020-04-16] MEDS: FLUTICASONE/VILANTEROL 100/25MCG 14 PUFFS/INHALER INH SCH (07:54)
[2020-04-16] MEDS: DOCUSATE SODIUM 100 MG CAP PO SCH ×2 (07:55→20:33)
[2020-04-16] MEDS: MULTIVITAMIN TAB PO SCH (07:55)
[2020-04-16] MEDS: NSS + 20MEQ KCL 20 MEQ/1,000 ML BAG IV SCH ×2 (08:44→20:32)
--- NOTE | 2020-04-16 11:20 | Gastrointestinal Consultation ---
Date of Consultation April 16, 2020 Assessment & Plan (1) Colitis: Ms. Perez is a 79 yr old female with rectal bleeding and CT suggestive of bowel wall thickening for the rectum/sigmoid. Differentials include nonspecific gastroenteritis(C. difficile negative, culture pending), divertic ular bleeding (unlikely as no diverticular dx mentioned on colonoscopy or CT), ischemic colitis and stercoral ulcer. She had a fairly recent She underwent colonoscopy in 2018, thus colon cancer is unlikely, though she does have a history of adenomatous polyps. IBD is also less likely as no chronic/prior episodes of similar symptoms and normal prior colonoscopy. Present on Admission?: Yes Supervising Physician Co-Signing Physician Notes I saw and evaluated the patient. She presented with a history of syncopal episode yesterday and was found to have evidence of small-volume hematochezia. The patient wonders if this is related to a recent food intake which resulted in nausea and vomiting. Of note the patient did have a colonoscopy several years ago without any worrisome changes. On CT scan the patient did have thickening of the sigmoid and rectum. Physical examination No obvious distress, no abdominal tenderness Impression: Patient with a syncopal episode and a question of enteritis from recent food intake. Given the thickening of the colon wall and her persistent symptoms perhaps a colonoscopy would be helpful to determine if she has ischemic colitis. After discussion with the patient and her daughter who is at bedside they have decided that colonoscopy would be best for them to ensure that no worrisome process is being missed. Recommendations Clear liquid diet today Bowel preparation to be written Colonoscopy on History of Present Illness Reason for Consultation: GI bleeding Requesting Physician: Dr. Thomas Attending Physician: Juan Thomas MD History of Present Illness Ms. Gilma Perez is a 79-year-old female patient of Dr. Orlin Art with a hx of tricuspid regurg, asthma, pulmonary HTN who experienced a sudden onset of nausea and vomiting after eating on 04/14/2020. With this she experie nced lightheadedness and had a syncopal episode. EMS was activated and she was brought to [facility] emergency department. On arrival, CT scan with suggestion of sigmoid/rectum wall thickening and rectal retention. Digital rectal exam in the ED with bright red blood. Yesterday, she passed a bloody bowel movement with bright red blood, moderate in size. She passed an additional bowel movement today and tells me that there was less blood this time. When asked, she reports mild bilateral lower abdomen discomfort but denies any significant abdominal pain. She reports that she tends toward constipation but over the past month, has passed a bowel movement daily, each formed sometimes firm somewhat hard. Did not have any blood with her bowel movements prior to arrival here. Regarding the vomiting there is been one episode since 04/14. She denies any nausea at this time. She is being kept NPO and given IV fluids and Pantoprazole IV BID. Antibiotics have been held. Stool for C. difficile is negative. Stool culture is collected and results are pending. The patient is awake alert oriented, hemodynamically stable she has been afebrile without leukocytosis. Allergies Allergy/AdvReac Type Severity Reaction Status Date / Time latex Allergy Unknown ITCHING Verified 04/14/20 19:10 Penicillins Allergy Unknown SOB/HIVES Verified 04/14/20 19:10 vancomycin Allergy Unknown Rash Verified 04/14/20 19:10 codeine AdvReac Unknown Drowsy Verified 04/14/20 19:10 Home Medications Home Medications Medication Instructions Recorded Confirmed Type aspirin 81 mg PO QAM 03/20/19 04/14/20 History calcium carbonate [Calcium 600] 600 mg PO BID 03/20/19 04/14/20 History cetirizine 5 mg PO QPM 03/20/19 04/14/20 History cholecalciferol (vitamin D3) 1,000 unit PO QAM 03/20/19 04/14/20 History [Vitamin D3] lisinopril 10 mg PO QPM 03/20/19 04/14/20 History multivitamin 1 tab PO QAM 03/20/19 04/14/20 History baclofen 10 mg PO BID PRN 04/14/20 04/14/20 History budesonide-formoterol [Symbicort] 2 puff INHALATION BID PRN 04/14/20 04/14/20 History famotidine 20 mg PO BID #20 tab 04/14/20 Rx fluoxetine 20 mg PO HS 04/14/20 04/14/20 History fluticasone propion-salmeterol 1 inh INHALATION BID PRN 04/14/20 04/14/20 History [Advair Diskus] fluticasone propionate 2 spray INTRANASAL DAILY PRN 04/14/20 04/14/20 History montelukast 10 mg PO HS 04/14/20 04/14/20 History ondansetron 4 mg PO Q6H PRN #14 tab 04/14/20 Rx Patient History Medical History Asthma RARELY USES PRN INH Hearing deficit BL JONES History of benign breast biopsy History of hydrocephalus S/P SHUNT PLACEMENT - 2014 - CAUSE? Hypertension Osteoarthritis SOB (shortness of breath) on exertion Valvular heart disease PT UNABLE TO PROVIDE SPECIFICS - DOES NOT FOLLOW W/ CARDIO - PCP MONITORING - ECHO DONE SPRING 2018 [facility] Surgical History History of back surgery LUMBAR History of cataract surgery History of cholecystectomy History of colonoscopy History of esophagogastroduodenoscopy (EGD) History of hammertoe correction History of lumpectomy History of oophorectomy, unilateral History of sinus surgery Presence of intracranial shunt Social History Smoking Status: Never smoker Second Hand Exposure: Yes ( A CHILD); Hx Alcohol Use: No Hx Substance Use: No Preferred Language: Uruguayan Communication Ability: Effective Wrapper Layer Required: No Beliefs That Will Affect Care: None Current Living Situation: Alone Other Information That Helps Us Care for You: No Feels Safe at Home: Yes Safety Concerns: Feels Safe At This Time Review of Systems Review of Systems: ROS: Gen: Denies weakness, fevers, weight loss Eyes: No eye redness, or pain, no recent vision changes Resp: No SOB, no cough Cardio: No palpitations/irregular beats, no chest pain GI: As per HPI, otherwise (-) : Denies pain on urination Skin: No jaundice, itching or new rashes Physical Exam Constitutional: WD/WN, vitals as above Eyes: PERRL, conjunctivae normal, anicteric sclerae ENMT: external ear and nose normal, oropharynx normal Neck: trachea midline, no thyromegaly Respiratory: normal respiratory effort, lungs clear to auscultation Cardiovascular: RRR, no murmur, no edema Gastrointestinal (Abdomen): normal bowel sounds, soft, nontender, no hepatosplenomegaly Musculoskeletal: no cyanosis or clubbing, extremities motor strength 5/5 Skin: no rashes, warm and dry Neurologic: PERRL, EOMI, accommodation nl, no face palsy, no dysarthria Psychiatric: A+Ox3, euthymic affect Lymphatic: no cervical or axillary lymphadenopathy Results & Data ([facility]) Vital Signs (Past 12 Hours) Vital Signs Temp Pulse Pulse Resp BP Pulse Ox 04/16/20 08:31 61 04/16/20 07:33 37.2 C 66 18 125/68 94 04/16/20 03:38 37.3 C 65 18 140/75 94 Laboratory Results WBC 9.7, Hb 11, Hct 33, Plts 85, NA 142, K3.4, BUN 9, Cr 0.6. Diagnostic Findings CT abd/pelvis with IV contrast 04/14/20: 1. Moderate fecal retention. Mild stranding surrounds the descending and sigmoid colon, equivocal for a mild associated colitis. 2. No small bowel obstruction. Scattered small bowel air-fluid levels are likely physiologic. A mild enteritis or ileus could appear similarly. 3. Noninflamed appendix. 4. Ventriculoperitoneal shunt catheter distal tip terminates in the pelvis. Trace pelvic ascites suggests functioning catheter. 5. Additional findings as above.
[2020-04-16] MEDS ORDERED: bisacodyL 5 MG TABEC PO ONE (12:20)
[2020-04-16] MEDS ORDERED: POLYETHYLENE (MIRALAX) 17 GM PACK PO SCH (12:30)
--- NOTE | 2020-04-16 13:23 | Hospitalist Progress Note ---
Date of Service April 16, 2020 Assessment & Plan (1) Colitis: Hemorrhagic colitis DD: Ischemic Colitis, ? Secondary to foodborne illness -- CT ABD:Moderate fecal retention. Mild stranding surrounds the descending and sigmoid colon, equivocal for a mild associated colitis. No small bowel obstruction. Scattered small bowel air-fluid levels are likely physiologic. A mild enteritis or ileus could appear similarly. Noninflamed appendix. Ventriculoperitoneal shunt catheter distal tip terminates in the pelvis. Trace pelvic ascites suggests functioning catheter. --Stool Studies: Negative --Received IV fluids --On PPI --Monitor H&H and transfuse PRBCs as needed --Appreciate GI input --Clear liquid diet --Colonoscopy as per GI Hypertension Stable Continue lisinopril 2.5 mg daily NPH S/P MARKETING REP shunt placement Shunt catheter seem to be functioning on Imaging Chronic Thrombocytopenia Monitor Platelets DVT Px: SCDs Re: GI bleed Code Status Full code Disposition Expect to discharge home when medically stable Admission and Anticipated Discharge Date Admission Date: April 14, 2020 Subjective Patient is seen and examined at bedside Persistent small volume bleeding per rectum Discussed with gastroenterology today Still has minimal abdominal discomfort Denies chest pain, SOB, dizziness, nausea, abdominal pain Offers no other complaints Family at bedside Review of Systems Review of Systems: All systems reviewed & are unremarkable except as noted in HPI & below Physical Exam Physical Exam: Physical Exam: Vitals signs as noted above General Appearance:Moderately built and nourished, no apparent distress Head: normocephalic, Atraumatic, +Hearing impairment Eyes: normal inspection, EOMI Neck: supple, Trachea midline Respiratory/Chest: Normal breath sounds, CTA Cardiovascular: S1, S2, No murmur Abdomen/GI:Soft, Mild tender, non distended, Bowel sounds present Extremities/Musculoskelatal:normal inspection, no edema Neurologic/Psych:AAOX3, grossly no focal neurological deficits Skin: normal color, warm Results & Data Results & Data ([facility]) Vital Signs (Past 12 Hours) Vital Signs Temp Pulse Pulse Resp BP Pulse Ox 04/16/20 11:29 36.9 C 60 18 108/68 94 04/16/20 08:31 61 04/16/20 07:33 37.2 C 66 18 125/68 94 04/16/20 03:38 37.3 C 65 18 140/75 94 Laboratory Results Short CBC 04/15/20 04/16/20 Range/Units 20:04 05:42 WBC 9.79 (4.8-10.8) K/uL Hgb 11.5 L 11.0 L (12.0-16.0) g/dL Hct 36.6 L 33.1 L (37-47) % Plt Count 85 L (130-400) K/uL [facility] 04/16/20 05:42 Sodium 142 Potassium 3.4 L Chloride 112 H Carbon Dioxide 24 BUN 9 D Creatinine 0.64 Glucose 97 Calcium 8.2 L
[2020-04-16] MEDS: MONTELUKAST SODIUM 10 MG TABLET PO SCH (20:33)
[2020-04-16] MEDS: FLUOXETINE HCL 20 MG CAP PO SCH (20:33)
[2020-04-16] MEDS: CETIRIZINE HCL 10 MG TABLET PO SCH (20:33)
[2020-04-17 06:26] LABS: Hematocrit (blood only) 33.9 % (37-47); Hemoglobin 11.1 g/dL (12.0-16.0); Mean Corpuscular Hemoglobin 30.9 pg (25-34); Mean Corpuscular Hgb Conc 32.7 g/dL (32-36); Mean Corpuscular Volume 94.4 fL (80-100); Mean Platelet Volume 14.3 fL (7.4-10.4); Platelet Count 88 K/uL (130-400); RDW Coefficient of Variation 13.9 % (11.5-14.5); RDW Standard Deviation 48.6 fL (36.4-46.3); Red Blood Count 3.59 M/uL (4.2-5.4); White Blood Count 7.39 K/uL (4.8-10.8)
[2020-04-17 06:27] LABS: Platelet Estimate Decreased (Normal)
[2020-04-17 06:42] LABS: BUN Creatinine Ratio 14.8 (10-20); Calcium 8.5 mg/dl (8.5-10.1); Creatinine Clr Calc Pharmacy 88.7 ml/min; Est GFR (African American) 96.9; Est GFR (Non-African American) 83.6; Magnesium 2.2 mg/dl (1.8-2.4); Potassium 3.5 mmol/L (3.5-5.1)
[2020-04-17] MEDS: FLUTICASONE/VILANTEROL 100/25MCG 14 PUFFS/INHALER INH SCH (07:55)
[2020-04-17] MEDS: MULTIVITAMIN TAB PO SCH (07:55)
[2020-04-17] MEDS: DOCUSATE SODIUM 100 MG CAP PO SCH ×2 (07:55→21:49)
--- NOTE | 2020-04-17 08:10 | Anesthesiology Consultation ---
Date of Service April 17, 2020 Assessment & Plan Chart Review Chart Review: Acceptable Risk for Surgery Consults Requested none ASA ASA3 Proposed Anesthesia Anesthesia Type: MAC Risk / Benefits Reviewed With: PT / POA / Parent / Guardian, Accepts Plan and Informed Consent Obtained History Surgery Operation Date: 04/17/20 16:30 Proposed Procedures p Colonoscopy Dr Dat Daugherty Height/Weight Height: 5 ft 10 in Weight: 106 kg Allergies Allergy/AdvReac Type Severity Reaction Status Date / Time latex Allergy Unknown ITCHING Verified 04/14/20 19:10 Penicillins Allergy Unknown SOB/HIVES Verified 04/14/20 19:10 vancomycin Allergy Unknown Rash Verified 04/14/20 19:10 codeine AdvReac Unknown Drowsy Verified 04/14/20 19:10 Medications Home Medications Medication Instructions Recorded Confirmed Last Taken aspirin 81 mg PO QAM 03/20/19 04/14/20 03/09/20 calcium carbonate [Calcium 600] 600 mg PO BID 03/20/19 04/14/20 03/09/20 cetirizine 5 mg PO QPM 03/20/19 04/14/20 03/08/20 cholecalciferol (vitamin D3) 1,000 unit PO QAM 03/20/19 04/14/20 03/09/20 [Vitamin D3] lisinopril 10 mg PO QPM 03/20/19 04/14/20 03/08/20 multivitamin 1 tab PO QAM 03/20/19 04/14/20 03/09/20 baclofen 10 mg PO BID PRN 04/14/20 04/14/20 Unknown budesonide-formoterol [Symbicort] 2 puff INHALATION BID PRN 04/14/20 04/14/20 Unknown famotidine 20 mg PO BID #20 tab 04/14/20 Unknown fluoxetine 20 mg PO HS 04/14/20 04/14/20 Unknown fluticasone propion-salmeterol 1 inh INHALATION BID PRN 04/14/20 04/14/20 Unknown [Advair Diskus] fluticasone propionate 2 spray INTRANASAL DAILY PRN 04/14/20 04/14/20 Unknown montelukast 10 mg PO HS 04/14/20 04/14/20 Unknown ondansetron 4 mg PO Q6H PRN #14 tab 04/14/20 Unknown Active Medications Generic Name Dose Route Start Last Admin Trade Name Freq PRN Reason Stop Dose Admin Cetirizine HCl 5 mg 04/14/20 22:00 04/16/20 20:33 Cetirizine Hcl 10 Mg Tablet PO 05/14/20 21:59 5 mg QPM JULIET Administration Docusate Sodium 100 mg 04/15/20 09:00 04/17/20 07:55 Docusate Sodium 100 Mg Cap PO 05/15/20 08:59 100 mg BID JULIET Administration Fluoxetine HCl 20 mg 04/14/20 22:00 04/16/20 20:33 Fluoxetine Hcl 20 Mg Cap PO 05/14/20 21:59 20 mg HS JULIET Administration Fluticasone/Vilanterol 1 puffs 04/15/20 09:00 04/17/20 07:55 Fluticasone/Vilanterol 100/25mcg 14 Puffs/Inhaler INH 05/15/20 08:59 1 puffs DAILY JULIET Administration Promethazine HCl 12.5 mg/ 50.5 mls @ 202 mls/hr 04/14/20 21:06 04/14/20 22:33 Sodium Chloride IV 05/14/20 21:05 Infused Q6H PRN Infusion Nausea And Vomiting Pantoprazole Sodium 40 mg/ 10 mls @ 5 mls/min 04/15/20 15:45 04/17/20 08:44 Syringe IV 05/15/20 15:44 5 mls/min BID JULIET Administration Lisinopril 2.5 mg 04/14/20 22:00 04/16/20 20:33 Lisinopril 2.5 Mg Tab PO 05/14/20 21:59 2.5 mg QPM JULIET Administration Montelukast Sodium 10 mg 04/14/20 22:00 04/16/20 20:33 Montelukast Sodium 10 Mg Tablet PO 05/14/20 21:59 10 mg HS JULIET Administration Multivitamins 1 tab 04/15/20 09:00 04/17/20 07:55 Multivitamin Tab PO 05/15/20 08:59 1 tab QAM JULIET Administration Past Medical History Medical History Asthma RARELY USES PRN INH Hearing deficit BL JONES History of benign breast biopsy History of hydrocephalus S/P SHUNT PLACEMENT - 2015 - CAUSE? Hypertension Osteoarthritis SOB (shortness of breath) on exertion Valvular heart disease PT UNABLE TO PROVIDE SPECIFICS - DOES NOT FOLLOW W/ CARDIO - PCP MONITORING - ECHO DONE SPRING 2018 [facility] Exercise / Class Metabolic Activity II 4-5 Yardwork/Stairs/Walk up hill Past Surgical History Surgical History History of back surgery LUMBAR History of cataract surgery History of cholecystectomy History of colonoscopy History of esophagogastroduodenoscopy (EGD) History of hammertoe correction History of lumpectomy History of oophorectomy, unilateral History of sinus surgery Presence of intracranial shunt Past Anesthesia History No Hx of Anesthesia Complications and No Family Hx of Anesthesia Complications History of PONV No Hx of PONV and No Hx of Motion Sickness Social History Smoking Status: Never smoker Hx Alcohol Use: No Hx Substance Use: No substance use type: does not use Physical Exam Vital Signs Last Vital Signs Temp 98.4 F 04/17/20 11:32 Pulse 56 L 04/17/20 11:32 Resp 20 04/17/20 11:32 BP 109/56 L 04/17/20 11:32 Pulse Ox 95 04/17/20 11:32 ENMT Mouth: no dentition abnormality Thyromental Distance: > or= 3.5 Finger Breadths Mallampati Class: II Neck normal visual inspection Respiratory normal respiratory effort Auscultation: lungs clear to auscultation bilaterally Cardiovascular Rate/Rhythm: regular rate and regular rhythm Testing Laboratory Results 04/17/20 05:28 04/17/20 05:28 PT 11.4 Seconds (9.0-12.0) 04/14/20 15:50 INR 1.1 (0.9-1.1) 04/14/20 15:50 APTT 21.7 Seconds (21.0-31.0) 04/14/20 15:50 Blood Type A Positive 04/14/20 20:34 Antibody Screen NEGATIVE 04/14/20 20:34 04/14/20 19:15 WBC Smear - Final Stool Escherichia coli Shiga Toxins Test - Preliminary Stool Culture - Preliminary No Salmonella isolated to date, No Shigella isolated to date, No Campylobacter jejuni isolated to date. Electrocardiogram Date: 04/14/20 Findings: + SB @ (51 bpm) Chest X-Ray Date: 04/14/20
[2020-04-17] MEDS: PANTOprazole 40 MG in SYRINGE 0 ML IV SCH (08:44)
--- NOTE | 2020-04-17 10:11 | Gastroenterology Progress Note ---
Date of Service April 17, 2020 Assessment & Plan (1) Colitis: Ms. Perez is a 79 yr old female who experienced rectal bleeding after a syncopal episode. CT is suggestive of bowel wall thickening for the rectum/sigmoid. Differentials considered include ischemic colitis, diverticular bleed, hemorrhoidal bleeding, nonspecific gastroenteritis. Further recommendations to follow colonoscopy today. Present on Admission?: Yes Admission and Anticipated Discharge Date Admission Date: April 14, 2020 Supervising Physician Co-Signing Physician Notes I saw and evaluated the patient. We are planning for colonoscopy due to persistent hematochezia. Risks and benefits have been discussed with both the patient and her daughter. Informed consent was signed. Subjective Pt is a 79-year-old female who experienced a syncopal episode with bright red re ctal bleeding and lower abdomen cramping soon after. She is prepped for colonoscopy today. She is feeling well, most recent bowel movements are yellow liquid, denies abdominal pain. No events overnight. Review of Systems Review of Systems: ROS: Gen: Denies weakness, fevers, weight loss Eyes: No eye redness, or pain, no recent vision changes Resp: No SOB, no cough Cardio: No palpitations/irregular beats, no chest pain GI: As per HPI, otherwise (-) : Denies pain on urination Skin: No jaundice, itching or new rashes Physical Exam Constitutional: WD/WN, vitals as above Eyes: PERRL, conjunctivae normal, anicteric sclerae ENMT: external ear and nose normal, oropharynx normal Neck: trachea midline, no thyromegaly Respiratory: normal respiratory effort, lungs clear to auscultation Cardiovascular: RRR, no murmur, no edema Gastrointestinal (Abdomen): normal bowel sounds, soft, nontender, no hepatosplenomegaly Musculoskeletal: no cyanosis or clubbing, extremities motor strength 5/5 Skin: no rashes, warm and dry Neurologic: PERRL, EOMI, accommodation nl, no face palsy, no dysarthria Psychiatric: A+Ox3, euthymic affect Lymphatic: no cervical or axillary lymphadenopathy Results & Data ([facility]) Vital Signs (Past 12 Hours) Vital Signs Temp Pulse Pulse Resp BP Pulse Ox 04/17/20 08:11 60 04/17/20 07:45 36.6 C 62 20 125/54 L 96 04/17/20 02:40 36.9 C 69 18 107/69 95 04/17/20 00:00 61
--- NOTE | 2020-04-17 12:08 | History & Physical Bridge Note ---
Date of Service April 17, 2020 History & Physical Bridge Note I have examined the patient, reviewed the History & Physical and in the interval since the performance of the History & Physical I have noted the following changes of clinical significance: no changes noted
[2020-04-17] MEDS ORDERED: PROPOFOL IV EMULSION 10 MG/ML 20 ML VIAL IV ONE (12:10)
--- NOTE | 2020-04-17 12:49 | Communication Note ---
Date of Service: April 17, 2020 Patient underwent colonoscopy due to persistent hematochezia. Findings Inflammatory changes throughout the left colon most consistent with ischemic co litis. C diff PCR was negative upon admission, culture was taken to screen for evidence of bacterial infections and Yersinia Recommendations Stool culture pending Liquid diet today 10-day course of empiric antibiotic coverage with Cipro and Flagyl Repeat colonoscopy in 8 to 12 weeks
--- NOTE | 2020-04-17 13:01 | Anesthesiology Progress Note ---
Date of Service April 17, 2020 Anesthesia Post Procedure Vital Signs Vital Signs: Temp Pulse Pulse Resp BP Pulse Ox 04/17/20 12:48 61 18 149/63 H 100 04/17/20 11:46 98.1 F 58 L 18 152/57 H 98 04/17/20 11:32 98.4 F 56 L 20 109/56 L 95 04/17/20 08:11 60 04/17/20 07:45 97.9 F 62 20 125/54 L 96 04/17/20 02:40 98.4 F 69 18 107/69 95 04/17/20 00:00 61 04/16/20 22:09 98.2 F 79 18 128/67 94 04/16/20 19:48 98.4 F 61 18 130/74 95 04/16/20 15:15 98.4 F 60 16 142/75 H 94 04/16/20 14:56 57 L Pain Intensity Abdomen: Pain Intensity: 4 Transfer of Care Handoff Completed per policy Notes Mental Status: alert / awake / arousable and participated in evaluation Patient Amnestic to Procedure: Yes Nausea / Vomiting: adequately controlled Pain: adequately controlled Airway Patency, RR, SpO2: stable & adequate BP & HR: stable & adequate Hydration State: stable & adequate Anesthetic Complications: no major complications apparent and Pt Satisfied with anesthetic care
--- NOTE | 2020-04-17 14:14 | Hospitalist Progress Note ---
Date of Service April 17, 2020 Assessment & Plan (1) Colitis: Bleeding per rectum Ischemic colitis External hemorrhoids DD: Ischemic Colitis, ? Secondary to foodborne illness -- CT ABD:Moderate fecal retention. Mild stranding surrounds the descending and sigmoid colon, equivocal for a mild associated colitis. No small bowel obstruction. Scattered small bowel air-fluid levels are likely physiologic. A mild enteritis or ileus could appear similarly. Noninflamed appendix. Ventriculoperitoneal shunt catheter distal tip terminates in the pelvis. Trace pelvic ascites suggests functioning catheter. --Colonoscopy on 04/17/20: Nonthrombosed external hemorrhoids found on digital rectal exam. Rectum is normal. Diffuse severe inflammation was found in the sigmoid colon, in the descending colon at the splenic flexure secondary to ischemic colitis. Biopsied. Full aspiration performed. The transverse colon and hepatic flexure are normal. --Stool for C. difficile negative --Received IV fluids --On PPI --Stool for Yersinia: Pending --Monitor H&H and transfuse PRBCs as needed --Appreciate GI input --Clear liquid diet today --Started on Cipro, Flagyl empirically --Needs repeat colonoscopy 8 to 12 weeks Hypertension BP elevated likely secondary to pain Stable Continue lisinopril 2.5 mg daily NPH S/P DATA ENTRY ANALYST shunt placement Shunt catheter seem to be functioning on Imaging Chronic Thrombocytopenia Monitor Platelets DVT Px: SCDs Re: GI bleed Code Status Full code Disposition Expect to discharge home when medically stable Admission and Anticipated Discharge Date Admission Date: April 14, 2020 Subjective Patient is seen and examined at bedside Complains of abdominal pain this morning Denies any blood in stool today Had colonoscopy today Denies chest pain, SOB, dizziness, nausea, abdominal pain Offers no other complaints Review of Systems Review of Systems: All systems reviewed & are unremarkable except as noted in HPI & below Physical Exam Physical Exam: Physical Exam: Vitals signs as noted above General Appearance:Moderately built and nourished, no apparent distress Head: normocephalic, Atraumatic, +Hearing impairment Eyes: normal inspection, EOMI Neck: supple, Trachea midline Respiratory/Chest: Normal breath sounds, CTA Cardiovascular: S1, S2, No murmur Abdomen/GI:Soft, Mild tender, non distended, Bowel sounds present Extremities/Musculoskelatal:normal inspection, no edema Neurologic/Psych:AAOX3, grossly no focal neurological deficits Skin: normal color, warm Results & Data Results & Data ([facility]) Vital Signs (Past 12 Hours) Vital Signs Temp Pulse Pulse Resp BP Pulse Ox 04/17/20 13:17 59 L 18 150/80 H 99 04/17/20 13:04 58 L 18 145/57 H 99 04/17/20 12:48 61 18 149/63 H 100 04/17/20 11:46 36.7 C 58 L 18 152/57 H 98 04/17/20 11:32 36.9 C 56 L 20 109/56 L 95 04/17/20 08:11 60 04/17/20 07:45 36.6 C 62 20 125/54 L 96 04/17/20 02:40 36.9 C 69 18 107/69 95
[2020-04-17] MEDS: metroNIDAZOLE 500 MG TAB PO SCH ×2 (15:47→21:55)
[2020-04-17] MEDS: CIPROFLOXACIN 500 MG TAB PO SCH (21:50)
[2020-04-17] MEDS: MONTELUKAST SODIUM 10 MG TABLET PO SCH (21:50)
[2020-04-17] MEDS: FLUOXETINE HCL 20 MG CAP PO SCH (21:50)
[2020-04-17] MEDS: CETIRIZINE HCL 10 MG TABLET PO SCH (21:51)
[2020-04-18] MEDS: metroNIDAZOLE 500 MG TAB PO SCH ×3 (06:23→22:12)
[2020-04-18 06:28] LABS: Hematocrit (blood only) 31.3 % (37-47); Hemoglobin 10.5 g/dL (12.0-16.0); Mean Corpuscular Hemoglobin 30.9 pg (25-34); Mean Corpuscular Hgb Conc 33.5 g/dL (32-36); Mean Corpuscular Volume 92.1 fL (80-100); Mean Platelet Volume 14.3 fL (7.4-10.4); Platelet Count 90 K/uL (130-400); RDW Coefficient of Variation 13.9 % (11.5-14.5); RDW Standard Deviation 47.1 fL (36.4-46.3); White Blood Count 4.82 K/uL (4.8-10.8)
[2020-04-18 06:29] LABS: Platelet Estimate Decreased (Normal)
[2020-04-18 06:47] LABS: BUN Creatinine Ratio 12.9 (10-20); Calcium 8.4 mg/dl (8.5-10.1); Creatinine Clr Calc Pharmacy 92.7 ml/min; Est GFR (African American) 98.3; Est GFR (Non-African American) 84.8; Magnesium 1.8 mg/dl (1.8-2.4); Potassium 3.2 mmol/L (3.5-5.1)
[2020-04-18] MEDS ORDERED: POTASSIUM CHLORIDE 20 MEQ TABCR PO ONE (07:10)
--- NOTE | 2020-04-18 08:13 | Gastroenterology Progress Note ---
Date of Service April 18, 2020 Assessment & Plan (1) Hematochezia: (2) Colitis: Admission and Anticipated Discharge Date Admission Date: Ms. Perez is a 79 y/o female who experienced rectal bleeding after syncopal episode, and CT was suggestive of bowel wall thickening of the rectum/sigmoid. Colonoscopy performed yesterday demonstrated diffuse severe inflammation in the sigmoid, descending colon at the splenic flexure, consistent with ischemic colitis. Pt doing well; abd is soft, hematochezia has stopped; labs are stable. - Can advance diet to regular (low-residue) today - Pt educated re: low residue diet; handout given - Encouraged hydration as well - Await bx results - Continue ABX to complete a 10 day course - Pt will need outpt follow-up colonoscopy for surveillance in 8 weeks; our office will arrange for her - GI will sign off, please call with questions Please see addendum below with additional recommendation from my supervising physician. Supervising Physician Co-Signing Physician Notes I saw and evaluated the patient. She was found to have evidence of ischemic colitis during yesterday's colonoscopy. She has not passed any recurrent hematochezia over the last 24 hours but does note some loosening of her stool. Recommendations Advance diet as tolerated 10-day course of Cipro Flagyl recommended Outpatient colonoscopy in 8 to 12 weeks Please call with any questions or concerns, GI to sign off Subjective Patient seen and examined, chart reviewed. Doing well overnight. Tolerating liquid diet. Had large loose brown BM this AM. No hematochezia, melena, hematemesis, fever, abd pain. Review of Systems Constitutional: no fever, no chills and no anorexia Respiratory: no cough and no dyspnea Cardiovascular: no chest pain and no dyspnea Gastrointestinal: as per Subjective / HPI Physical Exam Constitutional: WD/WN, vitals as above Respiratory: normal respiratory effort Cardiovascular: Rate/Rhythm: regular rate and regular rhythm Gastrointestinal (Abdomen): Inspection/Auscultation: abdomen normal to inspection and normal bowel sounds Percussion/Palpation: abdomen soft; abdomen nontender Psychiatric: A+Ox3, euthymic affect Results & Data ([facility]) Vital Signs (Past 12 Hours) Vital Signs Temp Pulse Pulse Resp BP Pulse Ox 04/18/20 07:49 36.9 C 56 L 20 121/69 95 04/18/20 07:31 56 L 04/18/20 04:00 36.8 C 61 18 148/67 H 96 04/17/20 23:24 60 04/17/20 23:23 36.9 C 60 18 120/71 95 Laboratory Results 04/18/20 04/18/20 04/17/20 Range/Units 05:46 05:46 12:38 WBC 4.82 (4.8-10.8) K/uL RBC 3.40 L (4.2-5.4) M/uL Hgb 10.5 L (12.0-16.0) g/dL Hct 31.3 L (37-47) % MCV 92.1 (80-100) fL MCH 30.9 (25-34) pg MCHC 33.5 (32-36) g/dL RDW Std Deviation 47.1 H (36.4-46.3) fL RDW Coeff of Evelyn 13.9 (11.5-14.5) % Plt Count 90 L (130-400) K/uL MPV 14.3 H (7.4-10.4) fL Platelet Estimate Decreased L (Normal) Sodium 142 (136-145) mmol/L Potassium 3.2 L (3.5-5.1) mmol/L Chloride 113 H (98-107) mmol/L Carbon Dioxide 22 (21-32) mmol/L Anion Gap 7.0 (3-11) BUN 9 (7-18) mg/dl Creatinine 0.67 (0.6-1.2) mg/dl Est Cr Clr Drug Dosing 92.7 ml/min Est GFR ( Amer) 98.3 Est GFR (Non-Af Amer) 84.8 BUN/Creatinine Ratio 12.9 (10-20) Glucose 84 (70-99) mg/dl Calcium 8.4 L (8.5-10.1) mg/dl Magnesium 1.8 (1.8-2.4) mg/dl Stl Yersinia Cult Final Pending SARS-CoV-2, RNA, NAAT (NEGATIVE) Crossmatch 04/17/20 04/14/20 Range/Units 08:20 20:34 WBC (4.8-10.8) K/uL RBC (4.2-5.4) M/uL Hgb (12.0-16.0) g/dL Hct (37-47) % MCV (80-100) fL MCH (25-34) pg MCHC (32-36) g/dL RDW Std Deviation (36.4-46.3) fL RDW Coeff of Evelyn (11.5-14.5) % Plt Count (130-400) K/uL MPV (7.4-10.4) fL Platelet Estimate (Normal) Sodium (136-145) mmol/L Potassium (3.5-5.1) mmol/L Chloride (98-107) mmol/L Carbon Dioxide (21-32) mmol/L Anion Gap (3-11) BUN (7-18) mg/dl Creatinine (0.6-1.2) mg/dl Est Cr Clr Drug Dosing ml/min Est GFR ( Amer) Est GFR (Non-Af Amer) BUN/Creatinine Ratio (10-20) Glucose (70-99) mg/dl Calcium (8.5-10.1) mg/dl Magnesium (1.8-2.4) mg/dl Stl Yersinia Cult Final SARS-CoV-2, RNA, NAAT NEGATIVE (NEGATIVE) Crossmatch See Detail
--- NOTE | 2020-04-18 09:05 | GI REPORT ---
Patient Name: Gilma Perez Procedure Date: 04/17/2020 12:24 PM Date of : 1940 Admit Type: Inpatient Age: 79 Gender: Female Attending MD: Fela Daugherty DO Procedure: Colonoscopy Providers: Fela Daugherty DO Referring MD: Juan Thomas Md Indications: Hematochezia Medicines: Monitored Anesthesia Care Complications: No immediate complications. Estimated blood loss: Minimal. Estimated Blood Loss: Estimated blood loss was minimal. Procedure: Pre-Anesthesia Assessment: - Prior to the procedure, a History and Physical was performed, and patient medications, allergies and sensitivities were reviewed. The patient's tolerance of previous anesthesia was reviewed. - The risks and benefits of the procedure and the sedation options and risks were discussed with the patient. All questions were answered and informed consent was obtained. - Patient identification and proposed procedure were verified prior to the procedure by the physician, the nurse and the wheel truing machine tender. The procedure was verified in the procedure room. - Pre-procedure physical examination revealed no contraindications to sedation. - ASA Grade Assessment: III - A patient with severe systemic disease. - After reviewing the risks and benefits, the patient was deemed in satisfactory condition to undergo the procedure. - The anesthesia plan was to use monitored anesthesia care (MAC). - Immediately prior to administration of medications, the patient was re-assessed for adequacy to receive sedatives. - The heart rate, respiratory rate, oxygen saturations, blood pressure, adequacy of pulmonary ventilation, and response to care were monitored throughout the procedure. - The physical status of the patient was re-assessed after the procedure. After I obtained informed consent, the scope was passed under direct vision. Throughout the procedure, the patient's blood pressure, pulse, and oxygen saturations were monitored continuously. The Colonoscope was introduced through the anus and advanced to the hepatic flexure for evaluation. This was the intended extent. The colonoscopy was performed without difficulty. The patient tolerated the procedure well. The quality of the bowel preparation was adequate to identify polyps 6 mm and larger in size. Findings: The digital rectal exam findings include non-thrombosed external hemorrhoids. Pertinent negatives include normal sphincter tone. The rectum appeared normal. Diffuse severe inflammation characterized by congestion (edema), erythema, granularity and deep ulcerations was found in the sigmoid colon, in the descending colon and at the splenic flexure. Biopsies were taken with a cold forceps for histology. Fluid aspiration was performed through the scope suction channel. Sample(s) were sent for bacterial cultures. The transverse colon and hepatic flexure appeared normal. Impression: - Non-thrombosed external hemorrhoids found on digital rectal exam. - The rectum is normal. - Diffuse severe inflammation was found in the sigmoid colon, in the descending colon and at the splenic flexure secondary to ischemic colitis. Biopsied. Fluid aspiration performed. - The transverse colon and hepatic flexure are normal. Recommendation: - [facility]. - Use broad spectrum antibiotics for 10 days. - Await pathology results. - Repeat colonoscopy in 8 weeks for surveillance. Fela Daugherty D.O. Fela Daugherty, DO 04/17/2020 12:48:00 PM This report has been signed electronically. Note Initiated On: 04/17/2020 12:24 PM Number of Addenda: 0 I attest to the content of the Intraoperative Record and orders documented therein, exceptions below {[id number]}
[2020-04-18] MEDS: CIPROFLOXACIN 500 MG TAB PO SCH ×2 (09:33→19:54)
[2020-04-18] MEDS: PANTOprazole 40 MG TAB PO SCH (09:34)
[2020-04-18] MEDS: MULTIVITAMIN TAB PO SCH (09:34)
[2020-04-18] MEDS: FLUTICASONE/VILANTEROL 100/25MCG 14 PUFFS/INHALER INH SCH (09:34)
[2020-04-18] MEDS: DOCUSATE SODIUM 100 MG CAP PO SCH ×2 (09:34→19:53)
[2020-04-18] MEDS: FLUOXETINE HCL 20 MG CAP PO SCH (19:53)
[2020-04-18] MEDS: MONTELUKAST SODIUM 10 MG TABLET PO SCH (19:55)
[2020-04-18] MEDS: CETIRIZINE HCL 10 MG TABLET PO SCH (19:56)
--- NOTE | 2020-04-18 21:14 | Hospitalist Progress Note ---
Date of Service April 18, 2020 Assessment & Plan (1) Colitis: Presented with abdominal pain, hematochezia, hypotension. CT demonstrated stranding surrounding descending and sigmoid colon consistent with colitis. GI consulted. Stool negative for C diff; routine stool culture negative so far. SARS-CoV-2 PCR negative. Colonoscopy demonstrated severe inflammatory changes in descending and sigmoid colon. Pathology demonstrated moderate ischemic colitis. No evidence of inflammatory bowel disease or malignancy. 10 day course of ciprofloxacin and metronidazole recommended. Etiology of ischemic colitis not known. Sinus rhythm on cardiac monitoring. Check echocardiogram. Consider CTA abdomen. (2) Acute blood loss anemia: Baseline Hgb February 2020 13.1. Hgb at time of admission was 12.7. Hgb fell to 11.0 by 9.2. Acute blood loss anemia secondary to acute GI bleeding. No need for transfusion at this time. (3) Hypokalemia: K 3.1. Replace. Follow. (4) Hypertension: Hemodynamically stable. Continue lisinopril. (5) Murmur, cardiac: III/ systolic murmur. Check echo. (6) DVT prophylaxis: No anticoagulants due to GI bleeding. SCD's. Ambulate. (7) Discharge planning issues: Anticipated discharge to home. Internal Medicine follow-up with Dr. Tosin Art. Admission and Anticipated Discharge Date Admission Date: April 14, 2020 Subjective Recheck for GI bleeding and other problems. Patient seen in their room around 1600. Daughter visiting. Better. No further hematochezia. Still having loose stools with fecal urgency. Feels a little lightheaded when ambulating to bathroom. Review of Systems: Constitutional- no fever. Cardiac- no chest pain. Pulmonary- no cough or SOB. GI- as noted above. - no urinary symptoms. Otherwise, as noted above. Physical Exam Constitutional: no acute distress Respiratory: no respiratory distress Auscultation: lungs clear to auscultation bilaterally Cardiovascular: Rate/Rhythm: regular rate and regular rhythm Heart Sounds: + murmur (III/ sys murmur at base) Vessels: no JVD Extremities: no calf tenderness and no edema Gastrointestinal (Abdomen): normal bowel sounds, soft, nontender, no hepatosplenomegaly Skin: no rashes, warm and dry Psychiatric: Orientation: alert and oriented x 3 Results & Data Results & Data ([facility]) Vital Signs (Past 12 Hours) Vital Signs Temp Pulse Pulse Resp BP Pulse Ox 04/18/20 19:28 36.5 C 59 L 20 113/66 96 04/18/20 15:32 36.7 C 75 18 123/51 L 97 04/18/20 15:25 62 04/18/20 11:13 36.8 C 59 L 20 113/67 99 Laboratory Results 04/18/20 05:46 04/18/20 05:46
[2020-04-19] MEDS: metroNIDAZOLE 500 MG TAB PO SCH ×2 (05:52→14:42)
[2020-04-19 06:33] LABS: Hematocrit (blood only) 31.3 % (37-47); Hemoglobin 10.3 g/dL (12.0-16.0); Mean Corpuscular Hemoglobin 30.7 pg (25-34); Mean Corpuscular Hgb Conc 32.9 g/dL (32-36); Mean Corpuscular Volume 93.4 fL (80-100); Mean Platelet Volume 14.2 fL (7.4-10.4); Platelet Count 93 K/uL (130-400); Platelet Estimate Decreased (Normal); RDW Coefficient of Variation 13.8 % (11.5-14.5); RDW Standard Deviation 47.5 fL (36.4-46.3); Red Blood Count 3.35 M/uL (4.2-5.4); White Blood Count 4.55 K/uL (4.8-10.8)
[2020-04-19 06:43] LABS: BUN Creatinine Ratio 14.5 (10-20); Calcium 8.7 mg/dl (8.5-10.1); Creatinine Clr Calc Pharmacy 76.3 ml/min; Est GFR (African American) 81.2; Est GFR (Non-African American) 70.1; Potassium 3.4 mmol/L (3.5-5.1)
[2020-04-19] MEDS ORDERED: POTASSIUM CHLORIDE 20 MEQ TABCR PO ONE (07:30)
[2020-04-19] MEDS: MULTIVITAMIN TAB PO SCH (08:44)
[2020-04-19] MEDS: DOCUSATE SODIUM 100 MG CAP PO SCH (08:44)
[2020-04-19] MEDS: FLUTICASONE/VILANTEROL 100/25MCG 14 PUFFS/INHALER INH SCH (08:45)
[2020-04-19] MEDS: PANTOprazole 40 MG TAB PO SCH (08:45)
[2020-04-19] MEDS: CIPROFLOXACIN 500 MG TAB PO SCH (08:50)
[2020-04-19] MEDS ORDERED: IOVERSOL 100ml IV ONE (15:41)
--- NOTE | 2020-04-19 16:06 | CT Scan Report ---
CT angio abdomen pelvis w con HISTORY: Ischemic colitis. Abnormal CT. TECHNIQUE: Multiaxial CT images of the head and pelvis performed following the use of intravenous con trast to evaluate the major arterial structures. Maximal intensity carcinomas also obtained. COMPARISON STUDY: Abdomen and pelvis CT 04/14/2020. FINDINGS: The heart is normal in size. Moderate calcified plaque within the normal caliber abdominal aorta and iliac arteries without significant stenosis or aneurysm. The celiac artery and its branches are widely patent. The bilateral renal arteries demonstrate mild calcified plaque proximally without significant stenosis. The superior mesenteric artery and inferior mesenteric artery appear patent. No pneumoperitoneum. No pneumatosis. No suspicious lytic are blastic osseous lesions. 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 Stable patchy sclerosis within the left T10 pedi roman. Hepatic steatosis. No hepatic or splenic masses. The adrenal glands, pancreas, and kidneys are w ithin normal limits. No hydronephrosis. Bilateral peripelvic cysts are again noted. No retroperitonea l lymphadenopathy. Trace bilateral pleural effusions with bibasilar subsegmental atelectasis. Trace a scites within the deep pelvis. The uterus and bilateral adnexa are within normal limits. Calcificatio ns within the bilateral adnexa remain unchanged. The bladder is unremarkable. Peritoneal dialysis cat heter is again noted with the tip terminating in the left lower quadrant. Fluid-filled colon. The kostas cending colon and sigmoid colon are decompressed which results in suboptimal evaluation. There is aga in suggestion of mild bowel wall thickening involving the splenic flexure of the colon, descending co williams, and sigmoid colon. Findings are consistent with a nonspecific colitis. This is stable to slightl y improved compared the prior study. IMPRESSION: 1. Redemonstration of the mild bowel wall thickening involving the descending colon and sigmoid colon consistent with a mild nonspecific colitis. This could be due to an infectious, inflammatory, or isc hemic process. 2. The mesenteric vessels appear patent. 3. Trace bilateral pleural effusions and trace ascites. 4. Additional findings as described above. ACT 112: Negative or not required by law. Electronically signed by: Jarad Warner M.D. 04/19/2020 4:05 PM
--- NOTE | 2020-04-19 17:26 | Hospitalist Progress Note ---
Date of Service April 19, 2020 Assessment & Plan (1) Colitis: Presented with abdominal pain, hematochezia, hypotension. CT demonstrated stranding surrounding descending and sigmoid colon consistent with colitis. GI consulted. Stool negative for C diff; routine stool culture negative so far. SARS-CoV-2 PCR negative. Colonoscopy demonstrated severe inflammatory changes in descending and sigmoid colon. Pathology demonstrated moderate ischemic colitis. No evidence of inflammatory bowel disease or malignancy. 10 day course of ciprofloxacin and metronidazole recommended. Etiology of ischemic colitis not known. Sinus rhythm on cardiac monitoring. Echocardiogram did not show any intracardiac thrombi. CTA abd + pelvis did not show any stenosis of mesenteric arteries. Recent problems with constipation- may be underlying etiology. Follow-up colonoscopy recommended in 8 - 12 weeks. (2) Acute blood loss anemia: Baseline Hgb February 2020 13.1. Hgb at time of admission was 12.7. Hgb fell to 10.3. Acute blood loss anemia secondary to acute GI bleeding. No need for transfusion at this time. (3) Hypokalemia: K as low as 3.1. Replaced. K day of discharge = 3.4. Discharge on KCl 10 mEq BID x 7 days. Recheck K in clinic. (4) Hypertension: Hemodynamically stable. Continue lisinopril. (5) Murmur, cardiac: III/ systolic murmur. Echo showed mild AI, mod TR. (6) Thrombocytopenia: Platelet count during this hospital stay 85,000 - 123,000. Old labs reviewed. Platelet count was 110,000 01/04/20. ? etiology. Consider Hematology eval / consultation as outpatient if not done in past. (7) Dyslipidemia: LDL (direct) 120 on 02/07/20. CTA abdomen did not show any mesenteric stenosis, but atherosclerotic changes were noted in aortoiliac and renal arteries. Start atorvastatin 40 mg daily. (8) DVT prophylaxis: No anticoagulants due to GI bleeding. SCD's. Ambulating. (9) Discharge planning issues: Discharge to home. Internal Medicine follow-up with Dr. Tosin Art. Admission and Anticipated Discharge Date Admission Date: April 14, 2020 Subjective Recheck for GI bleeding and other problems. Patient seen in their room around 1420. Daughter visiting. Feels better. No further hematochezia. Still have loose stools, but fecal urgency improved. No abdominal pain. Ambulating. Physical Exam Constitutional: no acute distress Respiratory: no respiratory distress Auscultation: lungs clear to auscultation bilaterally Cardiovascular: Rate/Rhythm: regular rate and regular rhythm Heart Sounds: + murmur (III/ sys murmur at base) Vessels: no JVD Extremities: no calf tenderness and no edema Gastrointestinal (Abdomen): normal bowel sounds, soft, nontender, no hepatosplenomegaly Skin: no rashes, warm and dry Psychiatric: Orientation: alert and oriented x 3 Results & Data Results & Data ([facility]) Vital Signs (Past 12 Hours) Vital Signs Temp Pulse Pulse Resp BP Pulse Ox 04/19/20 15:36 59 L 04/19/20 15:16 36.7 C 61 18 127/73 97 04/19/20 11:19 36.3 C L 59 L 16 123/72 95 04/19/20 07:39 56 L 04/19/20 07:09 36.7 C 57 L 16 124/69 95 Laboratory Results 04/19/20 05:56 04/19/20 05:56 Diagnostic Findings CTA ABDOMEN & PELVIS IMPRESSION: 1. Redemonstration of the mild bowel wall thickening involving the descending colon and sigmoid colon consistent with a mild nonspecific colitis. This could be due to an infectious, inflammatory, or ischemic process. 2. The mesenteric vessels appear patent. 3. Trace bilateral pleural effusions and trace ascites. 4. Additional findings as described above. ACT 112: Negative or not required by law. Electronically signed by: Jarad Warner M.D. 04/19/2020 4:05 PM
--- NOTE | 2020-04-19 23:14 | Electrocardiogram Report ---
Test Reason : Blood Pressure : / mmHG Vent. Rate : 058 BPM Atrial Rate : 058 BPM P-R Int : 172 ms QRS Dur : 096 ms QT Int : 438 ms P-R-T Axes : 086 073 060 degrees QTc Int : 429 ms Sinus bradycardia Otherwise normal ECG When compared with ECG of 14-APR-2020 15:46, No significant change was found Confirmed by Lawrence Liao ([id number]) on 04/19/2020 11:13:57 PM Referred By: REFERRED SELF Confirmed By:Lawrence Liao
--- NOTE | 2020-04-20 18:19 | Discharge Summary ---
Date of Service Date of Admission: 04/14/20 Date of Discharge: 04/19/20 Admission HPI Per Admitting Provider History obtained from patient, family, and records. 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 Patient developed sudden onset achy abdominal discomfort associated with emesis 30 minutes after consuming a salad but from a local restaurant. Patient initially constipated at home. Lightheadedness symptoms made patient lie down on the floor. EMS called. Initial SBP 80s. Patient denies chest pain, S OB. No known sick contacts/ recent out-of-town travel/antibiotic Rx.. Patient brought to the ER for evaluation. Has had 3 bloody bowel movements since. Principal Diagnosis lower GI bleed secondary to ischemic colitis acute blood loss anemia Discharge Data Allergies Allergy/AdvReac Type Severity Reaction Status Date / Time latex Allergy Unknown ITCHING Verified 04/14/20 19:10 Penicillins Allergy Unknown SOB/HIVES Verified 04/14/20 19:10 vancomycin Allergy Unknown Rash Verified 04/14/20 19:10 codeine AdvReac Unknown Drowsy Verified 04/14/20 19:10 Consultations 04/14/20 19:11 ED Decision to Admit Stat 04/15/20 15:40 Consult Gastroenterology Routine Procedures Performed Operation Date: 04/17/20 16:30 Actual Procedures p Colonoscopy Biopsy Cytology - Fela Daugherty Ordered Studies 04/14/20 15:51 CT abd pelvis IV con only Stat 04/19/20 14:31 CT angio abdomen pelvis w con Urgent Hospital Course (1) Colitis: Presented with abdominal pain, hematochezia, hypotension. CT demonstrated stranding surrounding descending and sigmoid colon consistent with colitis. GI consulted. Stool negative for C diff; routine stool culture negative so far. SARS-CoV-2 PCR negative. Colonoscopy demonstrated severe inflammatory changes in descending and sigmoid colon. Pathology demonstrated moderate ischemic colitis. No evidence of inflammatory bowel disease or malignancy. 10 day course of ciprofloxacin and metronidazole recommended. Etiology of ischemic colitis not known. Sinus rhythm on cardiac monitoring. Echocardiogram did not show any intracardiac thrombi. CTA abd + pelvis did not show any stenosis of mesenteric arteries. Recent problems with constipation- may be underlying etiology. Follow-up colonoscopy recommended in 8 - 12 weeks. (2) Acute blood loss anemia: Baseline Hgb February 2020 13.1. Hgb at time of admission was 12.7. Hgb fell to 10.3. Acute blood loss anemia secondary to acute GI bleeding. No need for transfusion at this time. (3) Hypokalemia: K as low as 3.1. Replaced. K day of discharge = 3.4. Discharge on KCl 10 mEq BID x 7 days. Recheck K in clinic. (4) Hypertension: Hemodynamically stable. Continue lisinopril. (5) Murmur, cardiac: III/ systolic murmur. Echo showed mild AI, mod TR. (6) Thrombocytopenia: Platelet count during this hospital stay 85,000 - 123,000. Old labs reviewed. Platelet count was 110,000 01/04/20. ? etiology. Consider Hematology eval / consultation as outpatient if not done in past. (7) Dyslipidemia: LDL (direct) 120 on 02/07/20. CTA abdomen did not show any mesenteric stenosis, but atherosclerotic changes were noted in aortoiliac and renal arteries. Start atorvastatin 40 mg daily. (8) DVT prophylaxis: No anticoagulants due to GI bleeding. SCD's. Ambulating. (9) Discharge planning issues: Discharged to home. Internal Medicine follow-up with Dr. Tosin Art. Total Time Total Time Spent Total Time Spent (In Minutes): 45 Discharge Plan Discharge Items Patient Disposition: Home - Self-Care Reason For Visit: rectal bleeding Discharge Diagnosis: ischemic colitis Condition on Discharge: Good Activity: Resume your previous activity Non-emergency contact: Primary Care Provider and Hospitalist Call non-emergency contact if: you have any medication questions and your symptoms worsen Follow-up/Referrals: Tosin Art MD [Primary Care Provider] - 04/24/20 11:20 am (04/24/2020 11:20 AM Tosin Art MD General Internal Medicine [facility] ) Diet: Heart Healthy Diet Comment: low fiber diet for 2 weeks Addtl Attending Provider Instructions: MEDICATION CHANGES: Hold aspirin for a few days. OK to restart on Sunday 04/22 if no more rectal bleeding. Antibiotics for colitis: ciprofloxacin (Cipro) 500 mg twice a day metronidazole (Flagyl) 500 mg 3 times a day potassium chloride 10 mEq twice a day (for low potassium level) atorvastatin (Lipitor) 40 mg daily cholesterol lowering medication to keep your arteries in good shape MiraLax as directed once or twice a day for constipation. SUMMARY OF TEST RESULTS: CT scan showed inflammation of colon, suggesting colitis. Stool tests looking for infection like C diff, E coli, and Salmonella were negative. Colonoscopy confirmed colitis. No sign of cancer. No sign on inflammatory bowel disease. Echocardiogram (ultrasound of heart): No sign of any blood clots in heart chambers. Mild leaking of aortic valve. Moderate leaking of tricuspid valve. CT angiogram done to look at blood vessels in abdomen. Blood vessels supplying blood to colon looked OK. Blood vessels supplying blood to kidneys showed some mild / early atherosclerosis (hardening of the arteries). PENDING TEST RESULTS: Please have Dr. Art check blood tests in clinic- complete blood count and basic metabolic profile. RECOMMENDATIONS FOR FOLLOW-UP: Repeat colonoscopy recommended in 8-12 weeks. Office will contact you with appointment. OTHER INSTRUCTIONS: Seek medical attention if you have: * temperature above 101 * chest pain or trouble breathing * abdominal pain, nausea, vomiting * diarrhea, dark stools or bloody stools * any unanswered questions or concerns Call [phone] if symptoms are severe. Please take good care of yourself. Call if you have any questions or problems. You can reach a [facility] hospitalist on duty at [facility] 24 hours a day by calling [phone]. My cell # is [phone]. Pending Studies at Discharge: No Stand-Alone Forms: My [facility], Smoking Cessation Medications and DC Order Prescriptions: New ciprofloxacin HCl 500 mg Tablet 500 mg PO BID 7 Days Qty: 14 RF: 0 metronidazole 500 mg Tablet 500 mg PO Q8H 7 Days Qty: 21 RF: 0 atorvastatin 40 mg tablet 40 mg PO DAILY Qty: 30 RF: 5 polyethylene glycol 3350 [Miralax] 17 gram/dose powder 17 g PO BID PRN (Reason: constipation) Qty: 510 RF: 0 potassium chloride 10 mEq capsule, extended release 10 meq PO BID Qty: 14 RF: 0 Continued fluticasone propion-salmeterol [Advair Diskus] 250-50 mcg/dose blister with device 1 inh INHALATION BID PRN (Reason: Shortness Of Breath Or Wheezing) RF: 0 baclofen 10 mg tablet 10 mg PO BID PRN (Reason: Pain) RF: 0 montelukast 10 mg tablet 10 mg PO HS RF: 0 fluoxetine 20 mg capsule 20 mg PO HS RF: 0 fluticasone propionate 50 mcg/actuation spray,suspension 2 spray INTRANASAL DAILY PRN (Reason: Allergy Symptoms) RF: 0 budesonide-formoterol [Symbicort] 80-4.5 mcg/actuation HFA aerosol inhaler 2 puff INHALATION BID PRN (Reason: Shortness Of Breath Or Wheezing) RF: 0 multivitamin Tablet 1 tab PO QAM RF: 0 cetirizine 10 mg Tablet 5 mg PO QPM RF: 0 aspirin 81 mg Tablet,Delayed Release (Dr/Ec) 81 mg PO QAM RF: 0 calcium carbonate [Calcium 600] 600 mg calcium (1,500 mg) Tablet 600 mg PO BID RF: 0 lisinopril 10 mg Tablet 10 mg PO QPM RF: 0 cholecalciferol (vitamin D3) [Vitamin D3] 1,000 unit Tablet,Chewable 1,000 unit PO QAM RF: 0 Discharge Orders: Discharge Order (Routine); Ordered 04/19/20 Ordered By: Sha Giraldo/Other Patient Handouts: Low-Fiber Diet, Anatomy of the Digestive System Admission Data Admit Date/Time: 04/14/20 20:08 Attending Provider: Sha Sahu Admit Provider: Ethan Overton Primary Care Provider: Tosin Art Other Providers: Ethan Overton ; Fela Daugherty ; Juan Thomas Other Interventions: Discharge Summary Assessment (RN) Last Done: 04/19/20 17:49
== END 2020-04-19 18:31 | disposition home or self-care (01) | DRG 394 ==
LOC: ED 15:38 → EDUNIT# 15:38 → SUATTDRO 20:08 → 2N 20:08

== ENCOUNTER 2020-11-14 00:20 | Observation (INO) ==
[2020-11-14] MEDS ORDERED: ALBUT/IPRATROP 3MG/0.5MG NEB 3 ML VIAL NEB ONE (00:36)
[2020-11-14] MEDS ORDERED: dexAMETHasone**PF** 10 MG/ML VIAL IV ONE (00:38)
--- NOTE | 2020-11-14 00:40 | Emergency Department Note ---
Impression & Plan Acute asthma exacerbation ED Provider Note Name: MATT BIANCHI Age: 80 Sex: F Arrives Via: Walk-In Informant: Patient, Daughter ED Provider: Louis Lee MD Chief Complaint: Difficulty breathing Impression: Acute Asthma Exacerbation Medical Decision Makin yr old female with history of hypertension, pulmonary hypertension, NPH, chronic thrombocytopenia, asthma which she reports is mild asthma but worsening the last few months. Arrives in quite some respiratory distress using accessory muscles and hypoxic. She was given prolonged neb with vast improvement. Labs, EKG, CXR unremarkable and covid negative. She was still hypoxic post treatment and thus will require hospitalization. Does not seem consistent with PE and with normal dimer would not get CT PE at this time. She is comfortable with plan. Will defer abx decision to hospitalist as she is afebrile, normal wbc, and cxr clear. Prior Medical Record and Triage/Nursing Notes reviewed by Me Additional history obtained from chart Differentials:Reactive airway disease, pneumonia, pneumothorax, COPD, CHF, infections, cardiac ischemia, pulmonary embolism, musculoskeletal, gastrointestinal, as well as other pathologies. Vital Signs: reviewed and remarkable for hypoxia Interventions: saline lock, decadron 10mg IV, duoneb 1 hr Labs:Reviewed and remarkable for no significant abnormalities Imaging:X ray results are stated below per my interpretation: Chest: 1 view: No infiltrate, no effusion, normal cardiac border. EKG:Per My Interpretation: Indication SHOB: NSR 66 bpm, qtc 440. No Ectopy. No Ischemia. Compared to EKG 04/18/20, no significant changes. Cardiac/Tele Monitoring: Cardiac Monitoring: An Order was placed for continuous cardiac monitoring. The monitor shows a rate of 60 with a normal sinus rhythm. Consults:Dr Patricia Garcia Hospitalist Plan: Disposition:Hospitalization. Condition: Good History of Present Illness:80 yr old female arrives for evaluation of shortness of breath. Patient with rare history of asthma symptoms, but over over the last few months with periodic difficulty breathing improved with albuterol. She has no smoking history though does have 2nd hand smoke exposure. Also has history Pulm Htn. Patient notes feeling well throughout the day with acute worsening shortness of breath this evening. Worse with exertion. Associated weakness. Used albuterol at home without improvement. Mild diffuse chest tightness and feels she is having difficulty taking a deep breath. She has never had symptoms this severe previously. She has no recent history of steroids nor abx. Symptoms better with sitting still. No syncope, leg swelling, fevers, chills, cough, abdominal pain, back pain, nausea, vomiting, headache, neck pain, rashes nor other symptoms. No sick contacts. 2nd Covid Vaccine > 2 weeks ago. ROS: See above HPI for pertinent positives & negatives. A total of 10 systems reviewed and were otherwise negative. Past Medical History:hypertension, pulmonary hypertension, NPH, chronic thrombocytopenia, asthma Past Surgical History:HEALTH SUPPORT SPECIALIST Shunt, see below for further Family History:Mother with respiratory issues Social History:Lives alone, non smoker, no drugs, retired Home Medications:See Below Allergies:PNC, Latex, vanco, codeine Vitals:Blood Pressure: 141/59, Pulse 82, RR 18, T 36.5C, O2 88% on RA Physical Exam: GENERAL: Patient is mildly anxious appearing and in mild distress. EYES: No scleral icterus, unremarkable pupils. ENT: Mucous membranes moist, no nasal congestion. NECK: No masses appreciated, nomeningismus, trachea is midline. RESPIRATORY: Diffuse tight lung sounds and wheezing with accessory muscle use CARDIOVASCULAR: Regular rate and rhythm.No murmurs, rubs, gallops appreciated. GASTROINTESTINAL: Abdomen soft, non-tender, no peritonitis.Bowel sounds positive.No masses appreciated. BACK: No midline tenderness, no CVA tenderness EXTREMITIES: Normal motion all extremities, no cyanosis, no edema. NEUROLOGIC: Alert and oriented, no acute motor or sensory deficits, no focal weakness, cranial nerves grossly intact. SKIN: No rash, no jaundice, no diaphoresis. PSYCH: Appropriate GCS: 15 ED Course: Times/Reassessments: vastly improved with neb. Dropping sats post neb over 30 minutes post treatment Louis Lee MD Past Med/Surg History Medical History (Updated 11/14/20 @ 05:51 by Louis Lee MD) Asthma RARELY USES PRN INH Dyslipidemia Hearing deficit BL JONES History of benign breast biopsy History of hydrocephalus S/P SHUNT PLACEMENT - 2014 - CAUSE? Hypertension Osteoarthritis Thrombocytopenia Valvular heart disease PT UNABLE TO PROVIDE SPECIFICS - DOES NOT FOLLOW W/ CARDIO - PCP MONITORING - ECHO DONE SPRING 2018 S Surgical History History of back surgery LUMBAR History of cataract surgery History of cholecystectomy History of colonoscopy History of esophagogastroduodenoscopy (EGD) History of hammertoe correction History of lumpectomy History of oophorectomy, unilateral History of sinus surgery Presence of intracranial shunt Social History Smoking Status: Never smoker Second Hand Exposure: Yes ( A CHILD); Hx Alcohol Use: No Hx Substance Use: No Preferred Language: Lithuanian Communication Ability: Effective Icebox Man Required: No Beliefs That Will Affect Care: None Current Living Situation: Alone Other Information That Helps Us Care for You: No Feels Safe at Home: Yes Safety Concerns: Feels Safe At This Time Assistive Devices: None Allergies Allergies Allergy/AdvReac Type Severity Reaction Status Date / Time Penicillins Allergy Severe SOB/HIVES Verified 11/14/20 01:12 latex Allergy Mild ITCHING Verified 11/14/20 01:12 vancomycin Allergy Mild Rash Verified 11/14/20 01:12 codeine AdvReac Intermediate Drowsy Verified 11/14/20 01:12 Home Meds Home Medications Medication Instructions Recorded Confirmed aspirin 81 mg PO QAM 03/20/19 11/14/20 calcium carbonate [Calcium 600] 600 mg PO BID 03/20/19 11/14/20 cetirizine 10 mg PO QPM 03/20/19 11/14/20 cholecalciferol (vitamin D3) 1,000 unit PO QAM 03/20/19 11/14/20 [Vitamin D3] lisinopril 10 mg PO QPM 03/20/19 11/14/20 multivitamin 1 tab PO QAM 03/20/19 11/14/20 baclofen 10 mg PO BID PRN 04/14/20 11/14/20 fluoxetine 20 mg PO HS 04/14/20 11/14/20 fluticasone propion-salmeterol 1 inh INHALATION BID PRN 04/14/20 11/14/20 [Advair Diskus] fluticasone propionate 2 spray INTRANASAL DAILY PRN 04/14/20 11/14/20 montelukast 10 mg PO HS 04/14/20 11/14/20 Previous Rx's Medication Instructions Recorded atorvastatin 40 mg PO DAILY #30 tab 04/19/20 polyethylene glycol 3350 [Miralax] 17 g PO BID PRN #510 g 04/19/20 Results & Data (ED) Vital Signs Vital Signs - 24 hr 11/14/20 00:24 11/14/20 00:38 11/14/20 00:48 Temperature 37.0 C Temperature Source Temporal Artery Scan Pulse Rate 83 74 Pulse Rate [Right Finger] Pulse Rate from SpO2 Sensor 74 Respiratory Rate 20 26 H Respiratory Effort / Characteristics Non-Labored Spontaneous Labored Short of Breath Respiratory Depth Normal Normal Respiratory Pattern Regular Blood Pressure 147/79 H 168/79 H Blood Pressure Mean 101 108 Pulse Oximetry 93 98 89 L Oxygen Delivery Method Room Air Nasal Cannula Nebulizer Room Air Oxygen Flow Rate 2 Sepsis Recent Fever Within 48 Hours No Sepsis New/Unexplained Change in Mental Status N/A Sepsis Action Taken by Nursing No Action Required Oxygen Flow Rate - Titration 2 Pulse Oximetry Post Tiitration 96 11/14/20 00:52 11/14/20 01:00 11/14/20 01:30 Temperature Temperature Source Pulse Rate 73 76 Pulse Rate [Right Finger] 69 Pulse Rate from SpO2 Sensor 73 76 Respiratory Rate 20 24 18 Respiratory Effort / Characteristics Non-Labored Spontaneous Respiratory Depth Respiratory Pattern Blood Pressure 166/75 H 154/49 H Blood Pressure Mean 105 84 Pulse Oximetry 99 100 100 Oxygen Delivery Method Nasal Cannula Nasal Cannula Nebulizer Oxygen Flow Rate 2 2 Sepsis Recent Fever Within 48 Hours Sepsis New/Unexplained Change in Mental Status Sepsis Action Taken by Nursing Oxygen Flow Rate - Titration Pulse Oximetry Post Tiitration 11/14/20 02:00 11/14/20 02:30 11/14/20 02:31 Temperature Temperature Source Pulse Rate 89 86 91 H Pulse Rate [Right Finger] Pulse Rate from SpO2 Sensor 89 87 89 Respiratory Rate 23 20 17 Respiratory Effort / Characteristics Respiratory Depth Respiratory Pattern Blood Pressure 152/54 H 136/48 L Blood Pressure Mean 86 77 Pulse Oximetry 100 91 90 Oxygen Delivery Method Oxygen Flow Rate Sepsis Recent Fever Within 48 Hours Sepsis New/Unexplained Change in Mental Status Sepsis Action Taken by Nursing Oxygen Flow Rate - Titration Pulse Oximetry Post Tiitration 11/14/20 02:53 11/14/20 03:00 11/14/20 03:01 Temperature Temperature Source Pulse Rate 84 84 Pulse Rate [Right Finger] Pulse Rate from SpO2 Sensor 84 85 Respiratory Rate 28 H 25 H Respiratory Effort / Characteristics Respiratory Depth Respiratory Pattern Blood Pressure 152/53 H Blood Pressure Mean 86 Pulse Oximetry 88 L 98 97 Oxygen Delivery Method Room Air Oxygen Flow Rate Sepsis Recent Fever Within 48 Hours Sepsis New/Unexplained Change in Mental Status Sepsis Action Taken by Nursing Oxygen Flow Rate - Titration Pulse Oximetry Post Tiitration 11/14/20 03:30 11/14/20 03:31 11/14/20 04:00 Temperature Temperature Source Pulse Rate 88 85 80 Pulse Rate [Right Finger] Pulse Rate from SpO2 Sensor 88 85 81 Respiratory Rate 20 17 17 Respiratory Effort / Characteristics Respiratory Depth Respiratory Pattern Blood Pressure 122/47 L 133/58 L Blood Pressure Mean 72 83 Pulse Oximetry 95 95 96 Oxygen Delivery Method Nasal Cannula Oxygen Flow Rate 2 Sepsis Recent Fever Within 48 Hours Sepsis New/Unexplained Change in Mental Status Sepsis Action Taken by Nursing Oxygen Flow Rate - Titration Pulse Oximetry Post Tiitration 11/14/20 04:01 Temperature Temperature Source Pulse Rate 82 Pulse Rate [Right Finger] Pulse Rate from SpO2 Sensor 82 Respiratory Rate 20 Respiratory Effort / Characteristics Respiratory Depth Respiratory Pattern Blood Pressure Blood Pressure Mean Pulse Oximetry 95 Oxygen Delivery Method Oxygen Flow Rate Sepsis Recent Fever Within 48 Hours Sepsis New/Unexplained Change in Mental Status Sepsis Action Taken by Nursing Oxygen Flow Rate - Titration Pulse Oximetry Post Tiitration Laboratory Data Result diagrams: 11/14/20 00:36 11/14/20 00:36 Lab Results 11/14/20 11/14/20 11/14/20 Range/Units 00:36 00:36 00:36 WBC 6.47 (4.8-10.8) K/uL RBC 4.21 (4.2-5.4) M/uL Hgb 12.9 (12.0-16.0) g/dL Hct 39.5 (37-47) % MCV 93.8 (80-100) fL MCH 30.6 (25-34) pg MCHC 32.7 (32-36) g/dL RDW Std Deviation 46.4 H (36.4-46.3) fL RDW Coeff of Evelyn 13.6 (11.5-14.5) % Plt Count 108 L (130-400) K/uL MPV 13.4 H (7.4-10.4) fL Immature Gran % (Auto) 0.2 % Neut % (Auto) 50.0 % Lymph % (Auto) 36.5 % [place] % (Auto) 9.7 % Eos % (Auto) 3.1 % Baso % (Auto) 0.5 % Neut # (Auto) 3.24 (1.4-6.5) K/uL Lymph # (Auto) 2.36 (1.2-3.4) K/uL [place] # (Auto) 0.63 H (0.11-0.59) K/uL Eos # (Auto) 0.20 (0-0.5) K/uL Baso # (Auto) 0.03 (0-0.2) K/uL Immature Gran # (Auto) 0.01 (0.00-0.02) K/uL Platelet Estimate Decreased L (Normal) Giant Platelets 1+ D-Dimer 420 (0-500) ug/L FEU Sodium 140 (136-145) mmol/L Potassium 4.2 (3.5-5.1) mmol/L Chloride 109 H (98-107) mmol/L Carbon Dioxide 28 (21-32) mmol/L Anion Gap 3.0 (3-11) BUN 33 H (7-18) mg/dl Creatinine 0.90 (0.6-1.2) mg/dl Est Cr Clr Drug Dosing 57.6 ml/min Est GFR ( Amer) 71.0 Est GFR (Non-Af Amer) 61.2 BUN/Creatinine Ratio 37.3 H (10-20) Glucose 108 H (70-99) mg/dl Calcium 9.2 (8.5-10.1) mg/dl Magnesium 2.3 (1.8-2.4) mg/dl Troponin I < 0.015 (0-0.045) ng/ml COVID-19 Eval Order SARS-CoV-2 (PCR) (Negative) Influenza Type A (PCR) (Neg) Influenza Type B (PCR) (Neg) RSV (RT-PCR) (Neg) 11/14/20 11/14/20 Range/Units 00:36 00:36 WBC (4.8-10.8) K/uL RBC (4.2-5.4) M/uL Hgb (12.0-16.0) g/dL Hct (37-47) % MCV (80-100) fL MCH (25-34) pg MCHC (32-36) g/dL RDW Std Deviation (36.4-46.3) fL RDW Coeff of Evelyn (11.5-14.5) % Plt Count (130-400) K/uL MPV (7.4-10.4) fL Immature Gran % (Auto) % Neut % (Auto) % Lymph % (Auto) % [place] % (Auto) % Eos % (Auto) % Baso % (Auto) % Neut # (Auto) (1.4-6.5) K/uL Lymph # (Auto) (1.2-3.4) K/uL [place] # (Auto) (0.11-0.59) K/uL Eos # (Auto) (0-0.5) K/uL Baso # (Auto) (0-0.2) K/uL Immature Gran # (Auto) (0.00-0.02) K/uL Platelet Estimate (Normal) Giant Platelets D-Dimer (0-500) ug/L FEU Sodium (136-145) mmol/L Potassium (3.5-5.1) mmol/L Chloride (98-107) mmol/L Carbon Dioxide (21-32) mmol/L Anion Gap (3-11) BUN (7-18) mg/dl Creatinine (0.6-1.2) mg/dl Est Cr Clr Drug Dosing ml/min Est GFR ( Amer) Est GFR (Non-Af Amer) BUN/Creatinine Ratio (10-20) Glucose (70-99) mg/dl Calcium (8.5-10.1) mg/dl Magnesium (1.8-2.4) mg/dl Troponin I (0-0.045) ng/ml COVID-19 Eval Order CovFluRsv at [facility] SARS-CoV-2 (PCR) NEGATIVE (Negative) Influenza Type A (PCR) Negative (Neg) Influenza Type B (PCR) Negative (Neg) RSV (RT-PCR) Negative (Neg) Administered Medications Discontinued Medications Albuterol (Albut/Ipratrop 3mg/0.5mg Neb 3 Ml Vial) 12 ml NEB ONE ONE Stop: 11/14/20 00:37 Last Admin: 11/14/20 00:50 Dose: 12 ml Documented by: [id number] Dexamethasone Sodium Phosphate (DexamethasonePf 10 Mg/Ml Vial) 10 mg IV NOW ONE Stop: 11/14/20 00:39 Last Admin: 11/14/20 01:00 Dose: 10 mg Documented by: [id number] Discharge Plan Visit Data Chief Complaint: Respiratory Problems Stated Complaint: ASTHMA ATTACK ED Provider: Louis Lee Discharge Problem: Acute asthma exacerbation Patient Disposition: Admitted As Inpatient Discharge Instructions Interventions: ED Discharge Assessment Last Done: 11/14/20 04:23 Discharge Problem: Acute asthma exacerbation Qualifiers: Asthma severity: severe Asthma persistence: persistent Qualified Code(s): J45.51 - Severe persistent asthma with (acute) exacerbation
[2020-11-14 00:57] LABS: D Dimer 420 ug/L FEU (0-500)
[2020-11-14 01:10] LABS: BUN Creatinine Ratio 37.3 (10-20); Blood Urea Nitrogen 33 mg/dl (7-18); Calcium 9.2 mg/dl (8.5-10.1); Carbon Dioxide 28 mmol/L (21-32); Chloride 109 mmol/L (98-107); Creatinine Clr Calc Pharmacy 57.6 ml/min; Est GFR (Non-African American) 61.2; Glucose 108 mg/dl (70-99); Magnesium 2.3 mg/dl (1.8-2.4); Potassium 4.2 mmol/L (3.5-5.1); Sodium 140 mmol/L (136-145)
[2020-11-14 01:11] LABS: Hematocrit (blood only) 39.5 % (37-47); Hemoglobin 12.9 g/dL (12.0-16.0); Mean Corpuscular Hemoglobin 30.6 pg (25-34); Mean Corpuscular Hgb Conc 32.7 g/dL (32-36); Mean Corpuscular Volume 93.8 fL (80-100); Mean Platelet Volume 13.4 fL (7.4-10.4); Platelet Count 108 K/uL (130-400); RDW Coefficient of Variation 13.6 % (11.5-14.5); RDW Standard Deviation 46.4 fL (36.4-46.3); Red Blood Count 4.21 M/uL (4.2-5.4); White Blood Count 6.47 K/uL (4.8-10.8)
[2020-11-14 01:12] LABS: Basophils # (auto) 0.03 K/uL (0-0.2); Basophils % (auto) 0.5 %; Eosinophils % (auto) 3.1 %; Giant Platelets 1+; Immature Granulocytes # (auto) 0.01 K/uL (0.00-0.02); Immature Granulocytes % (auto) 0.2 %; Lymphocytes # (auto) 2.36 K/uL (1.2-3.4); Lymphocytes % (auto) 36.5 %; Monocytes # (auto) 0.63 K/uL (0.11-0.59); Monocytes % (auto) 9.7 %; Neutrophils # (auto) 3.24 K/uL (1.4-6.5); Platelet Estimate Decreased (Normal)
[2020-11-14 01:14] LABS: Troponin I < 0.015 ng/ml (0-0.045)
[2020-11-14 01:39] LABS: Influenza A virus by PCR Negative (Neg); Influenza B virus by PCR Negative (Neg); RSV by PCR Negative (Neg); SARS CoV2 RNA(COVID-19) InHosp NEGATIVE (Negative)
[2020-11-14] MEDS ORDERED: BACLOFEN 10 MG TAB PO PRN (04:54)
[2020-11-14] MEDS ORDERED: LEVALBUTEROL 1.25MG/0.5ML NEB NEB PRN (04:54)
[2020-11-14] MEDS ORDERED: ACETAMINOPHEN 325 MG TAB PO PRN (04:54)
[2020-11-14] MEDS ORDERED: FLUTICASONE PROPIONATE NA SPR 16 GM BTL PRN (04:54)
[2020-11-14] MEDS ORDERED: POLYETHYLENE (MIRALAX) 17 GM PACK PO PRN ×2 (04:54)
[2020-11-14] MEDS ORDERED: ONDANSETRON INJ 2 MG/ML 2 ML VIAL IV PRN (04:54)
--- NOTE | 2020-11-14 05:43 | History and Physical Report ---
DATE OF ADMISSION: 11/14/2020 CHIEF COMPLAINT: Shortness of breath. HISTORY OF PRESENT ILLNESS: This is a 80-year-old female with past medical history significant for asthma, nonseasonal allergic rhinitis, hypertension, cataracts, history of thrombocytopenia, history of EVENT TECHNICIAN shunt status, thyroid nodule, who presents with shortness of breath. The patient says she had an asthma attack. She thinks it is one of the foods she ate that triggered the attack and as it was not getting better she came to the ER. In the ER, after receiving the Decadron and nebs, she is feeling better. Currently, she is not short of breath. When she came in, she had some cough with whitish phlegm. Denies any chest pain. No nausea, no vomiting. She was slightly dizzy when she came in. No headache, no blurred vision. She is hard of hearing. She always has runny nose. Denies any sore throat. Appetite is okay. No difficulty swallowing. No abdominal pain. Normal bowel and bladder movements. Currently resting comfortably and hemodynamically stable. She says she received two shots of the COVID shot, the second shot was in first week of October. She lives alone, but her daughter is visiting for the holidays. ALLERGIES: CODEINE, DOXYCYCLINE, ENVIRONMENTAL, LATEX, PENICILLIN AND VANCOMYCIN. PAST MEDICAL HISTORY: As mentioned above. PAST SURGICAL HISTORY: Breast lesion excision, colonoscopy, removal of ovaries, cataract surgery, cholecystectomy. MEDICATIONS: The patient is on aspirin 81 mg p.o. a.m., atorvastatin 40 mg p.o. daily, baclofen 10 mg p.o. b.i.d. p.r.n., calcium carbonate 600 mg p.o. b.i.d., cetirizine 10 mg p.o. p.m., vitamin D 1000 units p.o. a.m., fluoxetine 10 mg p.o. at bedtime, Advair Diskus one inhalation b.i.d., Flonase 2 sprays intranasal daily p.r.n., lisinopril 10 mg p.o. p.m., montelukast 10 mg p.o. at bedtime, multivitamin 1 tablet daily, MiraLax 17 grams p.o. b.i.d. p.r.n. FAMILY HISTORY: Significant for mother had breast cancer, hypertension, mitral valve prolapse. SOCIAL HISTORY: Currently lives alone. No smoking, no alcohol, no drug use. REVIEW OF SYSTEMS: As per HPI. Rest of the review of systems negative. PHYSICAL EXAMINATION: GENERAL: The patient is of moderate build, not in acute distress. VITAL SIGNS: Temperature 37, pulse 85, respiratory rate 17, blood pressure 122/47, oxygen when she came in was 88%, currently 95%. HEENT: Pupils equal, round, and reactive to light. Oral mucosa moist. NECK: No JVD, no neck masses. CARDIOVASCULAR: S1, S2 heard, regular rate and rhythm. No murmur, no gallop. RESPIRATORY SYSTEM: Normal AP diameter. No accessory muscle use. No wheezing, no crackles. ABDOMEN: Soft, bowel sounds present, nontender. No distention. CENTRAL NERVOUS SYSTEM: Cranial nerves II-XII grossly intact. Nonfocal. EXTREMITIES: No edema, no erythema. LABORATORY DATA: WBC 6.4, hemoglobin 12.9, hematocrit 39.5, platelets 108. D-dimer 420. Sodium 140, potassium 4.2, chloride 109, bicarbonate 28, BUN 33, creatinine 0.9, serum glucose 108, calcium 9.2, magnesium 2.3. Troponin I less than 0.015. SARS-CoV-2 PCR negative. Influenza A and B PCR negative. RSV PCR negative. IMAGING DATA: Chest x-ray, no acute findings. EKG: Normal sinus rhythm at a rate of 66, no significant change was found. ASSESSMENT AND PLAN: This is a 80-year-old female who presents with asthma attack. 1. Asthma Flare: The patient thinks the food she ate might have triggered the attack. Received Decadron and nebs in the ER and currently is stable. Currently, no wheezing on exam. We will admit to the hospital, med [facility], and observe. Will continue with short course of prednisone 40 mg and nebs around the clock and p.r.n. Continue her home inhalers and closely monitor. 2. History of nonseasonal allergic rhinitis: Continue her cetirizine and Flonase. 3. Chronic thrombocytopenia: Platelets of 108. Follow the repeat labs. 4. Hypertension: Continue her lisinopril. We will monitor the blood pressure. 5. Hyperlipidemia On statin. 5. Depression: Continue fluoxetine. 6. Deep venous thrombosis prophylaxis: Sequential compression devices. DISPOSITION: Closely monitor in the med tele. PT and OT prior to discharge. Expect to discharge home and follow with family doctor. Social service to help with discharge planning. Level 1 full code. MTDD
[2020-11-14] MEDS ORDERED: XOPENEX/ATROVENT 0.63mg/0.5MG NEB COMBO NEB SCH (07:00)
[2020-11-14] MEDS: LEVALBUTEROL HCL 0.63 MG/3 ML NEB NEB SCH ×2 (07:09→13:01)
[2020-11-14] MEDS: IPRATROPIUM BROMIDE NEB SOLN 0.02% 2.5 ML VIAL INH SCH ×2 (07:09→13:01)
--- NOTE | 2020-11-14 07:29 | XRay Report ---
XR chest 1V portable HISTORY: 80 years-old Female shob acute shortness of breath COMPARISON: chest radiograph 04/14/2020, CTA chest 01/03/2018 TECHNIQUE: Portable AP view of the chest FINDINGS: Cardiomediastinal and hilar silhouettes are unchanged. Calcified plaque of the thoracic aorta. No pne umothorax, pleural effusion, airspace consolidation or overt pulmonary edema. 1.3 cm hyperdense nodul ar focus of the right lung base may be artifactual or reflect a calcified granuloma, not definitively seen on the comparison CTA of the chest. Unchanged catheter projecting over the central chest and up per abdomen. Suggested healed remote fracture of the proximal left humerus. Bones of the chest appear grossly intact. IMPRESSION: No acute process. ACT 112: Negative or not required by law. The above report was generated using voice recognition software. It may contain grammatical, syntax o r spelling errors. Electronically signed by: Chema Smiley M.D. 11/14/2020 7:27 AM
[2020-11-14] MEDS: FLUTICASONE/VILANTEROL 100/25MCG 14 PUFFS/INHALER INH SCH (09:01)
[2020-11-14] MEDS: CHOLECALCIFEROL 1,000 UNITS 25 MCG TAB PO SCH (09:01)
[2020-11-14] MEDS: ASPIRIN 81 MG ECTAB PO SCH (09:02)
[2020-11-14] MEDS: ATORVASTATIN 40 MG TAB PO SCH (09:02)
[2020-11-14] MEDS: CALCIUM 600MG + VIT D 400 IU TAB PO SCH ×2 (09:02→21:35)
[2020-11-14] MEDS: MULTIVITAMIN TAB PO SCH (09:02)
[2020-11-14] MEDS: predniSONE 20 MG TAB PO SCH (09:02)
[2020-11-14] MEDS ORDERED: IPRATROPIUM BROMIDE NEB SOLN 0.02% 2.5 ML VIAL INH PRN (13:00)
[2020-11-14] MEDS ORDERED: LEVALBUTEROL HCL 0.63 MG/3 ML NEB NEB PRN (13:00)
--- NOTE | 2020-11-14 16:07 | Electrocardiogram Report ---
Test Reason : Blood Pressure : / mmHG Vent. Rate : 066 BPM Atrial Rate : 066 BPM P-R Int : 174 ms QRS Dur : 088 ms QT Int : 420 ms P-R-T Axes : 076 071 060 degrees QTc Int : 440 ms Normal sinus rhythm Normal ECG When compared with ECG of 18-APR-2020 06:39, No significant change was found Confirmed by Almas Apodaca ([id number]) on 11/14/2020 4:07:19 PM Referred By: REFERRED SELF Confirmed By:Almas Apodaca
--- NOTE | 2020-11-14 16:56 | Hospitalist Progress Note ---
Date of Service November 14, 2020 Assessment & Plan Admission and Anticipated Discharge Date Admission Date: November 14, 2020 Subjective Patient admitted with exacerbation of asthma, currently she sitting up in bed, i n no acute distress. She is breathing comfortably on room air, only complains of some chest tightness with deep inspiration. She is satting 94% on room air. No wheezing noted on physical exam. Clear to auscultation bilaterally. Heart sounds regular. Patient is alert and oriented answering questions appropriately. We will de-escalate nebulizers, to as needed. We will continue to closely monitor patient and continue the treatment with steroid. If patient stable, plan to discharge in the morning. Plan discussed with the patient and also her daughter over the phone. Anna Kilgore MD Results & Data Results & Data ([facility]) Vital Signs (Past 12 Hours) Vital Signs Temp Pulse Pulse Resp BP Pulse Ox 11/14/20 15:51 83 11/14/20 15:22 36.9 C 72 18 118/64 94 11/14/20 11:59 36.8 C 79 16 143/64 H 93 11/14/20 08:18 36.9 C 83 16 127/68 96 11/14/20 07:38 78 11/14/20 07:09 79 16 97 11/14/20 05:07 82
[2020-11-14] MEDS ORDERED: FLUoxetine HCL 20 MG CAP PO SCH (21:00)
[2020-11-14] MEDS ORDERED: CETIRIZINE HCL 10 MG TABLET PO SCH (21:00)
[2020-11-14] MEDS ORDERED: lisinopril 10 MG TAB PO SCH (21:00)
[2020-11-14] MEDS ORDERED: MONTELUKAST SODIUM 10 MG TABLET PO SCH (21:00)
[2020-11-15 06:24] LABS: Basophils # (auto) 0.01 K/uL (0-0.2); Basophils % (auto) 0.1 %; Eosinophils # (auto) 0.02 K/uL (0-0.5); Eosinophils % (auto) 0.2 %; Hematocrit (blood only) 34.8 % (37-47); Hemoglobin 11.6 g/dL (12.0-16.0); Immature Granulocytes # (auto) 0.01 K/uL (0.00-0.02); Immature Granulocytes % (auto) 0.1 %; Lymphocytes # (auto) 1.27 K/uL (1.2-3.4); Lymphocytes % (auto) 15.1 %; Mean Corpuscular Hemoglobin 30.9 pg (25-34); Mean Corpuscular Hgb Conc 33.3 g/dL (32-36); Mean Corpuscular Volume 92.6 fL (80-100); Monocytes # (auto) 0.67 K/uL (0.11-0.59); Monocytes % (auto) 7.9 %; Neutrophils # (auto) 6.45 K/uL (1.4-6.5); Neutrophils % (auto) 76.6 %; Platelet Count 99 K/uL (130-400); Platelet Estimate Decreased (Normal); RDW Coefficient of Variation 13.7 % (11.5-14.5); RDW Standard Deviation 46.8 fL (36.4-46.3); Red Blood Count 3.76 M/uL (4.2-5.4); White Blood Count 8.43 K/uL (4.8-10.8)
[2020-11-15 06:46] LABS: BUN Creatinine Ratio 33.4 (10-20); Calcium 8.9 mg/dl (8.5-10.1); Creatinine Clr Calc Pharmacy 97.8 ml/min; Est GFR (African American) 100.1; Est GFR (Non-African American) 86.4; Potassium 3.7 mmol/L (3.5-5.1)
--- NOTE | 2020-11-15 07:57 | Hospitalist Progress Note ---
Date of Service November 15, 2020 Assessment & Plan (1) Acute asthma exacerbation: This is a 80-year-old female who presents with asthma attack. 1. Asthma Flare: The patient thinks the food she ate might have triggered the attack. Received Decadron and nebs in the ER and currently is stable. Currently, no wheezing on exam. Patient was observed in the hospital, med tele. Continued with short course of prednisone 40 mg and nebs Continued her home inhalers She did not require any oxygen, and wheezing resolved. Clinically much improved, patient has no shortness of breath. 2. History of nonseasonal allergic rhinitis: Continue her cetirizine and Flonase. 3. Chronic thrombocytopenia: Platelets of 108. Follow the repeat labs. 4. Hypertension: Continue her lisinopril. We will monitor the blood pressure. 5. Hyperlipidemia On statin. 5. Depression: Continue fluoxetine. 6. Deep venous thrombosis prophylaxis: Sequential compression devices. Dispo: home and follow up w/ family doctor Admission and Anticipated Discharge Date Admission Date: November 14, 2020 Subjective Patient seen in follow-up of shortness of breath, asthma exacerbation Currently she is sitting up in bed, in no acute distress She is breathing comfortably on room air Denies any shortness of breath, wheezing, chest pain or any other discomfort Review of Systems Review of Systems: All systems reviewed & are unremarkable except as noted in HPI & below Constitutional: no fever and no chills Respiratory: no cough and no dyspnea Cardiovascular: no chest pain and no palpitations Gastrointestinal: no abdominal pain, no nausea and no vomiting Physical Exam Physical Exam: GENERAL: The patient is of moderate build, not in acute distress. Breathing comfortably on room air HEENT: NC/AT, EOMI, Pupils equal, round, and reactive to light. Oral mucosa moist. NECK: No JVD, no neck masses. CARDIOVASCULAR: S1, S2 heard, regular rate and rhythm. No murmur, no gallop. RESPIRATORY SYSTEM: Normal AP diameter. No accessory muscle use. No wheezing, no crackles. ABDOMEN: Soft, bowel sounds present, nontender. No distention. NEURO: Cranial nerves II-XII grossly intact. Nonfocal. Speech fluent, moves extremities spontaneously EXTREMITIES: No edema, no erythema. Results & Data Results & Data ([facility]) Vital Signs (Past 12 Hours) Vital Signs Temp Pulse Pulse Resp BP BP Pulse Ox 11/15/20 07:55 36.8 C 63 16 130/73 93 11/15/20 07:11 63 11/15/20 04:46 36.7 C 61 16 121/68 11/15/20 00:01 36.7 C 68 20 133/56 L 94 Laboratory Results 11/15/20 11/15/20 Range/Units 05:22 05:22 WBC 8.43 (4.8-10.8) K/uL RBC 3.76 L (4.2-5.4) M/uL Hgb 11.6 L (12.0-16.0) g/dL Hct 34.8 L (37-47) % MCV 92.6 (80-100) fL MCH 30.9 (25-34) pg MCHC 33.3 (32-36) g/dL RDW Std Deviation 46.8 H (36.4-46.3) fL RDW Coeff of Evelyn 13.7 (11.5-14.5) % Plt Count 99 L (130-400) K/uL MPV 14.0 H (7.4-10.4) fL Immature Gran % (Auto) 0.1 % Neut % (Auto) 76.6 % Lymph % (Auto) 15.1 % [place] % (Auto) 7.9 % Eos % (Auto) 0.2 % Baso % (Auto) 0.1 % Neut # (Auto) 6.45 (1.4-6.5) K/uL Lymph # (Auto) 1.27 (1.2-3.4) K/uL [place] # (Auto) 0.67 H (0.11-0.59) K/uL Eos # (Auto) 0.02 (0-0.5) K/uL Baso # (Auto) 0.01 (0-0.2) K/uL Immature Gran # (Auto) 0.01 (0.00-0.02) K/uL Platelet Estimate Decreased L (Normal) Sodium 139 (136-145) mmol/L Potassium 3.7 (3.5-5.1) mmol/L Chloride 110 H (98-107) mmol/L Carbon Dioxide 25 (21-32) mmol/L Anion Gap 4.0 (3-11) BUN 21 H (7-18) mg/dl Creatinine 0.62 (0.6-1.2) mg/dl Est Cr Clr Drug Dosing 97.8 ml/min Est GFR ( Amer) 100.1 Est GFR (Non-Af Amer) 86.4 BUN/Creatinine Ratio 33.4 H (10-20) Glucose 102 H (70-99) mg/dl Calcium 8.9 (8.5-10.1) mg/dl Magnesium 2.0 (1.8-2.4) mg/dl Medications Administered Current Inpatient Medications Acetaminophen (Acetaminophen 325 Mg Tab) 650 mg PO Q4H PRN PRN Reason: Pain or Fever Stop: 12/14/20 04:53 Aspirin (Aspirin 81 Mg Ect[facility]) [facility] [place] [place] 12/14/20 08:59 Last Admin: 11/14/20 09:02 Dose: 81 mg Documented by: Atorvastatin Calcium (Atorvastatin 40 Mg Tab) 40 mg PO DAILY [facility] Stop: 12/14/20 08:59 Last Admin: 11/14/20 09:02 Dose: 40 mg Documented by: Baclofen (Baclofen 10 Mg Tab) 10 mg PO BID PRN PRN Reason: Pain Stop: 12/14/20 04:53 Cetirizine HCl (Cetirizine Hcl 10 Mg Tablet) 10 mg PO QPM [facility] Stop: 12/14/20 20:59 Last Admin: 11/14/20 21:34 Dose: 10 mg Documented by: Fluoxetine HCl (Fluoxetine Hcl 20 Mg Cap) 20 mg PO HS [facility] Stop: 12/14/20 20:59 Last Admin: 11/14/20 21:34 Dose: 20 mg Documented by: Fluticasone Propionate (Fluticasone Propionate Na Spr 16 Gm Btl) 2 sprays NA DAILY PRN PRN Reason: Allergy Symptoms Stop: 12/14/20 04:53 Fluticasone/Vilanterol (Fluticasone/Vilanterol 100/25mcg 14 Puffs/Inhaler) 1 puffs INH DAILY [facility] Stop: 12/14/20 08:59 Last Admin: 11/14/20 09:01 Dose: 1 puffs Documented by: Ipratropium [place] (Ipratropium [place] Neb Soln 0.02% 2.5 Ml Vial) 0.5 mg INH Q6R PRN PRN Reason: Shortness Of Breath Or Wheezing Stop: 12/14/20 06:59 Levalbuterol HCl (Levalbuterol 1.25mg/0.5ml Neb) 1.25 mg NEB Q2H PRN PRN Reason: Shortness Of Breath Or Wheezing Stop: 12/14/20 04:53 Levalbuterol HCl (Levalbuterol Hcl 0.63 Mg/3 Ml Neb) 0.63 mg NEB Q6R PRN PRN Reason: Shortness Of Breath Or Wheezing Stop: 12/14/20 06:59 Lisinopril (Lisinopril 10 Mg Tab) 10 mg PO QPM JULIET Stop: 12/14/20 20:59 Last Admin: 11/14/20 21:34 Dose: 10 mg Documented by: Montelukast Sodium (Montelukast Sodium 10 Mg Tablet) 10 mg PO HS [facility] Stop: 12/14/20 20:59 Last Admin: 11/14/20 21:34 Dose: 10 mg Documented by: Multivitamins (Multivitamin Tab) 1 tab PO QAM [facility] Stop: 12/14/20 08:59 Last Admin: 11/14/20 09:02 Dose: 1 tab Documented by: Multivitamins/Minerals (Calcium 600mg + Vit D 400 Iu Tab) 1 tab PO BID [facility] Stop: 12/14/20 08:59 Last Admin: 11/14/20 21:35 Dose: 1 tab Documented by: Ondansetron HCl (Ondansetron Inj 2 Mg/Ml 2 Ml Vial) 4 mg IV Q6H PRN PRN Reason: Nausea Stop: 12/14/20 04:53 Polyethylene Glycol (Polyethylene (Miralax) 17 Gm Pack) 17 gm PO BID PRN PRN Reason: constipation Stop: 12/14/20 04:53 Potassium Chloride (Potassium Chloride Crtab 20 Meq Tabcr) 20 meq PO NOW STA Stop: 11/15/20 07:57 Prednisone (Prednisone 20 Mg Tab) 40 mg PO DAILY [facility] Stop: 12/14/20 08:59 Last Admin: 11/14/20 09:02 Dose: 40 mg Documented by: Vitamin D (Cholecalciferol 1,000 Units 25 Mcg Tab) 1,000 units PO QAM [facility] Stop: 12/14/20 08:59 Last Admin: 11/14/20 09:01 Dose: 1,000 units Documented by: (1) Acute asthma exacerbation Asthma persistence: persistent Asthma severity: severe Qualified Code(s): J45.51 - Severe persistent asthma with (acute) exacerbation
--- NOTE | 2020-11-15 08:25 | Communication Note ---
Date of Service: November 15, 2020 Code 44 Attestation: 80 yrs old female was admitted with flare of Asthma. She has been feeling a lot better as of today and can be discharged home. By CMS guidelines, a determination that the admission or continued stay is not medically necessary has been made by a member of the UR committee and a physician for this hospital stay, therefore a Code 44 will be completed and the Inpatient admission will be changed to outpatient. Dr Orlin Arnold Member UR Committee
--- NOTE | 2020-11-15 08:29 | Discharge Summary ---
Date of Service November 15, 2020 Admission HPI Per Admitting Provider This is a 80-year-old female with past medical history significant for asthma, nonseasonal allergic rhinitis, hypertension, cataracts, history of thrombocytopenia, history of DUST MIXER shunt status, thyroid nodule, who presents with shortness of breath. The patient says she had an asthma attack. She thinks it is one of the foods she ate that triggered the attack and as it was not getting better she came to the ER. In the ER, after receiving the Decadron and nebs, she is feeling better. Currently, she is not short of breath. When she came in, she had some cough with whitish phlegm. Denies any chest pain. No nausea, no vomiting. She was slightly dizzy when she came in. No headache, no blurred vision. She is hard of hearing. She always has runny nose. Denies any sore throat. Appetite is okay. No difficulty swallowing. No abdominal pain. Normal bowel and bladder movements. Currently resting comfortably and hemodynamically stable. She says she received two shots of the COVID shot, the second shot was in first week of October. She lives alone, but her daughter is visiting for the holidays. Admission Exam Per Admitting Provider GENERAL: The patient is of moderate build, not in acute distress. VITAL SIGNS: Temperature 37, pulse 85, respiratory rate 17, blood pressure 122/47, oxygen when she came in was 88%, currently 95%. HEENT: Pupils equal, round, and reactive to light. Oral mucosa moist. NECK: No JVD, no neck masses. CARDIOVASCULAR: S1, S2 heard, regular rate and rhythm. No murmur, no gallop. RESPIRATORY SYSTEM: Normal AP diameter. No accessory muscle use. No wheezing, no crackles. ABDOMEN: Soft, bowel sounds present, nontender. No distention. CENTRAL NERVOUS SYSTEM: Cranial nerves II-XII grossly intact. Nonfocal. EXTREMITIES: No edema, no erythema. Principal Diagnosis Shortness of breath due to asthma flare Discharge Exam GENERAL: The patient is of moderate build, not in acute distress. Breathing comfortably on room air HEENT: NC/AT, EOMI, Pupils equal, round, and reactive to light. Oral mucosa moist. NECK: No JVD, no neck masses. CARDIOVASCULAR: S1, S2 heard, regular rate and rhythm. No murmur, no gallop. RESPIRATORY SYSTEM: Normal AP diameter. No accessory muscle use. No wheezing, no crackles. ABDOMEN: Soft, bowel sounds present, nontender. No distention. NEURO: Cranial nerves II-XII grossly intact. Nonfocal. Speech fluent, moves extremities spontaneously EXTREMITIES: No edema, no erythema. Discharge Data Allergies Allergy/AdvReac Type Severity Reaction Status Date / Time Penicillins Allergy Severe SOB/HIVES Verified 11/14/20 01:12 latex Allergy Mild ITCHING Verified 11/14/20 01:12 vancomycin Allergy Mild Rash Verified 11/14/20 01:12 codeine AdvReac Intermediate Drowsy Verified 11/14/20 01:12 Consultations 11/14/20 02:55 ED Decision to Admit Stat Hospital Course (1) Acute asthma exacerbation: This is a 80-year-old female who presents with asthma attack. 1. Asthma Flare: The patient thinks the food she ate might have triggered the attack. Received Decadron and nebs in the ER and currently is stable. Currently, no wheezing on exam. Patient was observed in the hospital, med tele. Continued with short course of prednisone 40 mg and nebs Continued her home inhalers She did not require any oxygen, and wheezing resolved. Clinically much improved, patient has no shortness of breath. 2. History of nonseasonal allergic rhinitis: Continue her cetirizine and Flonase. 3. Chronic thrombocytopenia: Platelets of 108. Follow the repeat labs. 4. Hypertension: Continue her lisinopril. We will monitor the blood pressure. 5. Hyperlipidemia On statin. 5. Depression: Continue fluoxetine. 6. Deep venous thrombosis prophylaxis: Sequential compression devices. Dispo: home and follow up w/ family doctor Total Time Total Time Spent Total Time Spent (In Minutes): 35 Total Time Includes: Examination of the Patient, Discharge Planning and Medication Reconciliation Discharge Plan Discharge Items Patient Disposition: Home - Self-Care Reason For Visit: SOB Discharge Diagnosis: Shortness of breath due to asthma flare Activity: Per Instructions section Non-emergency contact: Primary Care Provider Call non-emergency contact if: you have any medication questions and your symptoms worsen Follow-up/Referrals: Tosin Art MD [Primary Care Provider] - (Date & Time 11/20/2020 2:20 PM Provider Tosin Art MD Department General Internal Medicine [facility] ) Diet: Heart Healthy Addtl Attending Provider Instructions: Follow-up with your primary care doctor, the appointment was scheduled for you for November 20. Take prednisone for next few days, as prescribed. Pending Studies at Discharge: No Stand-Alone Forms: My [facility], Smoking Cessation Medications and DC Order Prescriptions: New prednisone 20 mg Tablet 40 mg PO DAILY 2 Days Qty: 4 RF: 0 Continued fluticasone propion-salmeterol [Advair Diskus] 250-50 mcg/dose blister with device 1 inh INHALATION BID PRN (Reason: Shortness Of Breath Or Wheezing) RF: 0 baclofen 10 mg tablet 10 mg PO BID PRN (Reason: Pain) RF: 0 montelukast 10 mg tablet 10 mg PO HS RF: 0 fluoxetine 20 mg capsule 20 mg PO HS RF: 0 fluticasone propionate 50 mcg/actuation spray,suspension 2 spray INTRANASAL DAILY PRN (Reason: Allergy Symptoms) RF: 0 atorvastatin 40 mg tablet 40 mg PO DAILY Qty: 30 RF: 5 polyethylene glycol 3350 [Miralax] 17 gram/dose powder 17 g PO BID PRN (Reason: constipation) Qty: 510 RF: 0 multivitamin Tablet 1 tab PO QAM RF: 0 cetirizine 10 mg Tablet 10 mg PO QPM RF: 0 aspirin 81 mg Tablet,Delayed Release (Dr/Ec) 81 mg PO QAM RF: 0 calcium carbonate [Calcium 600] 600 mg calcium (1,500 mg) Tablet 600 mg PO BID RF: 0 lisinopril 10 mg Tablet 10 mg PO QPM RF: 0 cholecalciferol (vitamin D3) [Vitamin D3] 1,000 unit Tablet,Chewable 1,000 unit PO QAM RF: 0 Discharge Orders: Discharge Order (Routine); Ordered 11/15/20 Ordered By: Chepe Kilgore Admission Data Admit Date/Time: 11/14/20 04:03 Attending Provider: Chepe Kilgore Admit Provider: Saúl Gomez Primary Care Provider: Tosin Art Other Providers: Saúl Gomez
[2020-11-15] MEDS ORDERED: POTASSIUM CHLORIDE CRTAB 20 MEQ TABCR PO ONE (08:30)
[2020-11-15] MEDS: FLUTICASONE/VILANTEROL 100/25MCG 14 PUFFS/INHALER INH SCH (08:40)
[2020-11-15] MEDS: ASPIRIN 81 MG ECTAB PO SCH (08:41)
[2020-11-15] MEDS: ATORVASTATIN 40 MG TAB PO SCH (08:41)
[2020-11-15] MEDS: predniSONE 20 MG TAB PO SCH (08:41)
[2020-11-15] MEDS: CHOLECALCIFEROL 1,000 UNITS 25 MCG TAB PO SCH (08:41)
[2020-11-15] MEDS: MULTIVITAMIN TAB PO SCH (08:41)
[2020-11-15] MEDS: CALCIUM 600MG + VIT D 400 IU TAB PO SCH (08:43)
== END 2020-11-15 10:11 | disposition home or self-care (01) ==
LOC: ED 00:20 → 2W 04:03 → INTOOBSV 04:03 → 2W 04:23

== ENCOUNTER 2022-05-21 21:17 | Inpatient (IN) ==
[2022-05-21 21:48] LABS: Basophils # (auto) 0.03 K/uL (0-0.2); Basophils % (auto) 0.5 %; Eosinophils # (auto) 0.19 K/uL (0-0.50); Eosinophils % (auto) 3.3 %; Hematocrit (blood only) 38.3 % (34.1-44.9); Hemoglobin 12.7 g/dl (12.0-16.0); Immature Granulocytes # (auto) 0.01 K/uL (0.00-0.02); Immature Granulocytes % (auto) 0.2 %; Lymphocytes # (auto) 1.25 K/uL (1.2-3.4); Mean Corpuscular Hemoglobin 30.7 pg (25.0-34.0); Mean Corpuscular Hgb Conc 33.2 g/dL (32.0-36.0); Mean Corpuscular Volume 92.5 fL (80.0-100.0); Monocytes % (auto) 10.5 %; Neutrophils # (auto) 3.61 K/uL (1.4-6.5); Neutrophils % (auto) 63.5 %; Platelet Count 149 K/uL (130-400); RDW Coefficient of Variation 13.2 % (11.5-14.5); RDW Standard Deviation 44.8 fL (36.4-46.3); Red Blood Count 4.14 M/uL (3.93-5.22); White Blood Count 5.69 K/ul (4.8-10.8)
[2022-05-21 22:06] LABS: Partial Thromboplastin Ratio 0.9; Partial Thromboplastin Time 25.8 Seconds (21.0-31.0)
[2022-05-21 22:08] LABS: Albumin Globulin Ratio 1.7 (0.9-2); Albumin Level 3.8 gm/dl (3.4-5.0); BUN Creatinine Ratio 29.3 (10-20); Bilirubin,Total 0.7 mg/dl (0.2-1.0); Creatinine Clr Calc Pharmacy 70.3 ml/min; Est GFR (African American) 78.3 ml/min; Est GFR (Non-African American) 67.6 ml/min; Globulin 2.2 gm/dl (2.5-4.0); Potassium 4.3 mmol/L (3.5-5.1)
[2022-05-21 22:14] LABS: Troponin I High Sensitivity 3.8 pg/ml (0-14)
--- NOTE | 2022-05-21 23:20 | Emergency Department Note ---
History of Present Illness General Chief complaint: Chest Pain Stated complaint: DIZZY, CHEST PAIN Time Seen by Provider: 05/21/22 22:52 History of Present Illness Maximum Pain Intensity: 0 82-year-old female presents emergency department with intermittent substernal chest pressure that started earlier today at rest. Patient states she was at rest states that she felt like someone sitting on her chest. Patient states over a period of time that went away and then slept the rest of the day woke up again with chest pain. Family states that she was clammy at that time. There is no shortness of breath. Patient denies calf pain. Patient had a recent fall and had rib fractures. Patient denies hemoptysis denies fever denies cough cold congestion symptoms. Currently the patient states that she is pain-free. There are no other mitigating or alleviating factors Home Medications Medication Instructions Recorded Confirmed Type calcium carbonate 600 mg calcium 600 mg PO BID 03/20/19 12/29/21 History (1,500 mg) tablet (Calcium) cetirizine 10 mg tablet 10 mg PO QPM 03/20/19 12/29/21 History cholecalciferol (vitamin D3) 25 1,000 unit PO QAM 03/20/19 12/29/21 History mcg (1,000 unit) chewable tablet (Vitamin D3) multivitamin 1 tab PO QAM 03/20/19 12/29/21 History baclofen 10 mg tablet 10 mg PO BID PRN Pain 04/14/20 12/29/21 History fluoxetine 20 mg capsule 20 mg PO HS 04/14/20 12/29/21 History fluticasone 250 mcg-salmeterol 50 1 inh inhalation BID PRN Shortness 04/14/20 History mcg/dose blistr powdr for Of Breath Or Wheezing inhalation (Advair Diskus) fluticasone propionate 50 2 spray intranasal DAILY PRN 04/14/20 12/29/21 History mcg/actuation nasal Allergy Symptoms spray,suspension atorvastatin 40 mg tablet 40 mg PO DAILY #30 tabs 04/19/20 12/29/21 Rx polyethylene glycol 3350 17 17 g PO BID PRN constipation #510 04/19/20 12/29/21 Rx gram/dose oral powder (Miralax) grams lisinopril 5 mg tablet 5 mg PO QPM 12/29/21 12/29/21 History Allergies Allergy/AdvReac Type Severity Reaction Status Date / Time Penicillins Allergy Severe SOB/HIVES Verified 12/29/21 20:01 latex Allergy Intermediate ITCHING Verified 12/29/21 20:01 vancomycin Allergy Intermediate Rash Verified 12/29/21 20:01 codeine AdvReac Intermediate Drowsy Verified 12/29/21 20:01 Past Med/Surg History Medical History Asthma RARELY USES PRN INH Dyslipidemia Hearing deficit BL JONES History of benign breast biopsy History of hydrocephalus S/P SHUNT PLACEMENT - 2014 - CAUSE? Hypertension Osteoarthritis Thrombocytopenia Valvular heart disease PT UNABLE TO PROVIDE SPECIFICS - DOES NOT FOLLOW W/ CARDIO - PCP MONITORING - ECHO DONE SPRING 2018 [facility] Surgical History History of back surgery LUMBAR History of cataract surgery History of cholecystectomy History of colonoscopy History of esophagogastroduodenoscopy (EGD) History of hammertoe correction History of lumpectomy History of oophorectomy, unilateral History of sinus surgery Presence of intracranial shunt Social History Smoking Status: Never smoker Second Hand Exposure: Yes ( A CHILD); Hx Alcohol Use: No Hx Substance Use: No Preferred Language: Djiboutian Communication Ability: Effective Financial Auditor Required: No Beliefs That Will Affect Care: None marital status: / Current Living Situation: Alone How many Children do You have: 5 Feels Safe at Home: Yes Assistive Devices: Glasses, Hearing Aid - Left and Hearing Aid - Right Review of Systems A total of 10 systems reviewed and were otherwise negative Constitutional: no fever Respiratory: no cough Cardiovascular: + chest pain Physical Exam Vital Signs Vital Signs - 24 hr 05/21/22 21:21 Temperature 36.9 C Temperature Source Temporal Artery Scan Pulse Rate 73 Respiratory Rate 20 Respiratory Effort / Characteristics Non-Labored Respiratory Depth Normal Blood Pressure 149/69 H Blood Pressure Mean 95 Pulse Oximetry 99 Oxygen Delivery Method Room Air Sepsis Recent Fever Within 48 Hours No Sepsis New/Unexplained Change in Mental Status N/A Sepsis Action Taken by Nursing No Action Required GENERAL: Patient is awake alert in no acute distress patient is resting comforta rufina and showing no signs of anxiety EYES: The conjunctivae are clear. The pupils are round and reactive. EARS, NOSE, MOUTH AND THROAT: The nose is without any evidence of any deformity. Mucous membranes are moist. Tongue is midline. NECK: The neck is nontender and supple RESPIRATORY: Normal respiratory effort is noted there is no evidence of wheezing rhonchi or rales CARDIOVASCULAR: Regular rate and rhythm noted there no murmurs rubs or gallops normal S1 normal S2. GASTROINTESTINAL: The abdomen is soft. Abdomen is nontender. PELVIS: The Pelvis is stable. No tenderness to palpation is noted. BACK: No midline tenderness or or step-off noted range of motion in flexion extension as well as rotation no signs of muscle spasm noted MUSCULOSKELETAL/EXTREMITIES: There is no evidence of gross deformity full range of motion is noted in the hips and shoulders. The calves are nontender SKIN: There is no obvious evidence of any rash. There are no petechiae, pallor or cyanosis noted. There is ecchymosis present on right shoulder that is in different stages of healing NEUROLOGIC: Patient is awake alert and oriented x3 strength Course Reevaluation(s) Reevaluation #1: Patient is resting in no distress on repeat examination. Patient was given aspirin. The case was discussed with the hospitalist for admission Time: 23:49 Medical Decision Making Medical Records Attestation: I reviewed the patient's medical records. Home Medications Current Medication List: was personally reviewed by me Laboratory Data Attestation: I reviewed the patient's lab results. Result diagrams: 05/21/22 21:35 05/21/22 21:35 Lab Results 05/21/22 05/21/22 05/21/22 Range/Units 21:35 21:35 21:35 WBC 5.69 (4.8-10.8) K/ul RBC 4.14 (3.93-5.22) M/uL Hgb 12.7 (12.0-16.0) g/dl Hct 38.3 (34.1-44.9) % MCV 92.5 (80.0-100.0) fL MCH 30.7 (25.0-34.0) pg MCHC 33.2 (32.0-36.0) g/dL RDW Std Deviation 44.8 (36.4-46.3) fL RDW Coeff of Evelyn 13.2 (11.5-14.5) % Plt Count 149 (130-400) K/uL MPV 13.0 H (9.4-12.3) fL Immature Gran % (Auto) 0.2 % Neut % (Auto) 63.5 % Lymph % (Auto) 22.0 % [place] % (Auto) 10.5 % Eos % (Auto) 3.3 % Baso % (Auto) 0.5 % Neut # (Auto) 3.61 (1.4-6.5) K/uL Lymph # (Auto) 1.25 (1.2-3.4) K/uL [place] # (Auto) 0.60 (0.24-0.82) K/uL Eos # (Auto) 0.19 (0-0.50) K/uL Baso # (Auto) 0.03 (0-0.2) K/uL Immature Gran # (Auto) 0.01 (0.00-0.02) K/uL PT 11.0 (9.0-12.0) Seconds INR 1.0 (0.9-1.1) APTT 25.8 (21.0-31.0) Seconds PTT Ratio 0.9 Sodium 137 (136-145) mmol/L Potassium 4.3 (3.5-5.1) mmol/L Chloride 105 (98-107) mmol/L Carbon Dioxide 28 (21-32) mmol/L Anion Gap 4 (3-11) BUN 24 H (6-23) mg/dl Creatinine 0.82 (0.6-1.2) mg/dl Est Cr Clr Drug Dosing 70.3 ml/min Est GFR ( Amer) 78.3 ml/min Est GFR (Non-Af Amer) 67.6 ml/min BUN/Creatinine Ratio 29.3 H (10-20) Glucose 99 (70-99(Fasting)) mg/dl Calcium 9.0 (8.5-10.1) mg/dl Total Bilirubin 0.7 (0.2-1.0) mg/dl AST 16 (13-39) U/L ALT 17 (7-52) U/L Alkaline Phosphatase 128 H (34-104) U/L Troponin I High Sens 3.8 (0-14) pg/ml Total Protein 6.0 (6.0-8.3) gm/dl Albumin 3.8 (3.4-5.0) gm/dl Globulin 2.2 L (2.5-4.0) gm/dl Albumin/Globulin Ratio 1.7 (0.9-2) Imaging Data Attestation: I personally reviewed and interpreted this imaging study as follows: My Impression: Chest x-ray interpreted by me small left pleural effusion normal mediastinum no obvious pneumothorax no obvious rib fractures. ECG Data Attestation: I personally reviewed and interpreted this ECG as follows: Additional Comments: EKG Interpreted by me normal sinus rhythm rate of 67 normal intervals normal axis no obvious ST segment elevation or depression MDM Narrative Medical decision making differential diagnosis angina, unstable angina, acute coronary syndrome, acute MS, chest wall pain, anxiety, rib fracture. Plan is to check cardiac evaluation, observe Patient was evaluated for chest pain. Patient's EKG is normal first troponin is normal chest x-ray shows a small left pleural effusion. Patient will be admitted for a cardiac evaluation. I do not suspect the patient to have a pulmonary embolism or thoracic aortic dissection at this time. The case was discussed with the [facility] hospitalist for admission. Impression & Plan Chest pain Discharge Plan Visit Data Chief Complaint: Chest Pain Stated Complaint: DIZZY, CHEST PAIN ED Provider: Mikael Fernandez Discharge Problem: Chest pain Patient Disposition: Being Evaluated by Hospitalist Forms Stand Alone Forms: My [facility] Prescriptions Prescriptions: No Action fluticasone propion-salmeterol [Advair Diskus] 250-50 mcg/dose blister with device 1 inh INHALATION BID PRN (Reason: Shortness Of Breath Or Wheezing) baclofen 10 mg tablet 10 mg PO BID PRN (Reason: Pain) fluoxetine 20 mg capsule 20 mg PO HS fluticasone propionate 50 mcg/actuation spray,suspension 2 spray INTRANASAL DAILY PRN (Reason: Allergy Symptoms) atorvastatin 40 mg tablet 40 mg PO DAILY Qty: 30 5RF polyethylene glycol 3350 [Miralax] 17 gram/dose powder 17 g PO BID PRN (Reason: constipation) Qty: 510 0RF multivitamin Tablet 1 tab PO QAM cetirizine 10 mg Tablet 10 mg PO QPM calcium carbonate [Calcium 600] 600 mg calcium (1,500 mg) Tablet 600 mg PO BID cholecalciferol (vitamin D3) [Vitamin D3] 1,000 unit Tablet,Chewable 1,000 unit PO QAM lisinopril 5 mg Tablet 5 mg PO QPM Referrals Referrals: Tosin Art MD [Primary Care Provider] -
[2022-05-21] MEDS ORDERED: ASPIRIN CHEW 324 MG PO STA (23:45)
[2022-05-22] MEDS ORDERED: ALBUMIN 25% 100 mL 25 GM/100 ML VIAL IV ONE (00:26)
[2022-05-22 01:26] LABS: Magnesium 2.2 mg/dl (1.7-2.4)
[2022-05-22 01:30] LABS: Troponin I High Sensitivity 4.2 pg/ml (0-14)
[2022-05-22 01:43] LABS: D Dimer 2370 ug/L FEU (0-500)
--- NOTE | 2022-05-22 02:12 | History & Physical Report ---
Date of Service May 22, 2022 Assessment & Plan (1) Pulmonary emboli: Plan: With RV strain on initial CT read Initial occurrence Possibly related to decreased mobility following multiple falls secondary to ambulatory dysfunction in the last month. Rule out LE DVT as source hypertension, currently stable NPH status post DURABILITY TECHNICIAN shunt placement Thyroid nodules, patient follows with [facility] provider chronic thrombocytopenia PCU IV heparin LE venous Dopplers rule out DVT Pulmonary consult Re: Pulmonary emboli with RV strain Fall precautions, PT OT eval Patient may need placement if 24-hour supervision at home not possible if patient to go home on anticoagulation given recurrent falls/ambulatory dysfunction DVT prophylaxis IV heparin Full code Patient daughter requesting updates from providers. Ms. Ame Dang, contact #[phone]. Attempted to contact patient daughter over the phone to give update. No answer/ phone unable to receive messages. Total critical care time was 40 minutes. Text document was generated using [employer] voice recognition software. It may contain grammatical or spelling errors. Kindly contact undersigned for clarification of any documentation item in question. History of Present Illness Chief Complaint: Chest pain Primary Care Provider: Tosin Art MD History obtained from patient, family, and records. Medical history significant for hypertension, pulmonary hypertension as per records, valvular heart disease (moderate TR, mild AR/MR), NPH status post DURABILITY TECHNICIAN shunt placement, mood disorder, thyroid nodule, chronic thrombocytopenia, ambulatory dysfunction Last [facility] confinement November 2020 for asthma exacerbation. Patient fell in the bathtub last month. Pleuritic left-sided chest pain. Patient evaluated at [facility] ER 3 weeks ago. Trauma scan results as follows. Chest: 1. Nondisplaced fractures of the anterolateral left 9th and 10th ribs. Mild overlying chest wall subcutaneous contusions. 2. Small left pleural effusion. Bibasilar atelectasis. No pneumothorax. 3. Small hiatal hernia. 4. Other incidental findings as detailed above. Abdomen/pelvis: 1. No findings to suggest acute abdominal or pelvic visceral injury. 2. A small density in the lower pole of the left kidney measuring 0.9 cm, too dense for a simple cyst. The differential diagnosis includes a hyperdense cyst or a solid lesion. Consider a follow up renal ultrasound for further evaluation. 3. Other incidental findings as detailed above. Bones: 1. Mild compression deformities of several thoracic and lumbar vertebral bodies are age indeterminate. Please correlate clinically. 2. A small nonspecific sclerotic lesion in the left posterior T10 vertebral body. As clinically indicated, consider a follow-up MRI for further evaluation. 3. Nondisplaced fractures of the anterolateral left 9th and 10th ribs. Fall at home into head trauma last week. Patient felt lightheaded and weak as per report. No syncope. Patient evaluated at [facility] Subsequently discharged home with imaging work-up unchanged from [facility] ER visit. Patient not moving as much since injuries due to fear of falling. Patient seen by her [facility] neurosurgeon on NPH/DURABILITY TECHNICIAN shunt follow-up evaluation 4 days ago. Provider made aware of gait/balance disturbances. Shunt series and outpatient PT/balance center evaluation recommended by provider Yesterday morning, patient had transient achy right-sided chest discomfort close to the shoulder. Patient later on noted substernal discomfort like someone sitting on her chest. Patient with lightheadedness. No headache complaints. No cough. Patient possibly short of breath with exertion. Patient brought by daughter to the ER for evaluation. Medical Historyas above Surgical History : DURABILITY TECHNICIAN shunt placement, breast lesion excision, oophorectomy, cataract surgery, cholecystectomy Family History : Breast cancer, mitral valve prolapse Personal/Social history : Non-smoker, no EtOH intake, homemaker in her younger years Allergies Allergy/AdvReac Type Severity Reaction Status Date / Time Penicillins Allergy Severe SOB/HIVES Verified 05/22/22 01:07 latex Allergy Intermediate ITCHING Verified 05/22/22 01:07 vancomycin Allergy Intermediate Rash Verified 05/22/22 01:07 codeine AdvReac Intermediate Drowsy Verified 05/22/22 01:07 Home Medications Medication Instructions Recorded Confirmed Type calcium carbonate 600 mg calcium 600 mg PO BID 03/20/19 05/22/22 History (1,500 mg) tablet (Calcium) multivitamin 1 tab PO QAM 03/20/19 05/22/22 History fluoxetine 20 mg capsule 20 mg PO QAM 04/14/20 05/22/22 History fluticasone 250 mcg-salmeterol 50 1 inh inhalation BID PRN Shortness 04/14/20 05/22/22 History mcg/dose blistr powdr for Of Breath Or Wheezing inhalation (Advair Diskus) fluticasone propionate 50 2 spray intranasal DAILY PRN 04/14/20 05/22/22 History mcg/actuation nasal Allergy Symptoms spray,suspension atorvastatin 40 mg tablet 40 mg PO DAILY #30 tabs 04/19/20 05/22/22 Rx polyethylene glycol 3350 17 17 g PO BID PRN constipation #510 04/19/20 05/22/22 Rx gram/dose oral powder (Miralax) grams lisinopril 5 mg tablet 5 mg PO DAILY 12/29/21 05/22/22 History albuterol sulfate 90 mcg/actuation 2 puff inhalation QID PRN 05/22/22 05/22/22 History aerosol inhaler (ProAir HFA) Shortness Of Breath Or Wheezing alendronate 70 mg tablet 70 mg PO WE 05/22/22 05/22/22 History cetirizine 10 mg tablet (Zyrtec) 10 mg PO DAILY 05/22/22 05/22/22 History cholecalciferol (vitamin D3) 125 125 mcg PO DAILY 05/22/22 05/22/22 History mcg (5,000 unit) tablet (Vitamin D3) fluoxetine 10 mg capsule 10 mg PO QAM 05/22/22 05/22/22 History melatonin 10 mg tablet 10 mg PO HS 05/22/22 05/22/22 History Past Med/Surg History Medical History Asthma RARELY USES PRN INH Dyslipidemia Hearing deficit BL JONES History of benign breast biopsy History of hydrocephalus S/P SHUNT PLACEMENT - 2014 - CAUSE? Hypertension Osteoarthritis Thrombocytopenia Valvular heart disease PT UNABLE TO PROVIDE SPECIFICS - DOES NOT FOLLOW W/ CARDIO - PCP MONITORING - ECHO DONE SPRING 2018 [facility] Surgical History History of back surgery LUMBAR History of cataract surgery History of cholecystectomy History of colonoscopy History of esophagogastroduodenoscopy (EGD) History of hammertoe correction History of lumpectomy History of oophorectomy, unilateral History of sinus surgery Presence of intracranial shunt Social History Smoking Status: Never smoker Second Hand Exposure: Yes ( A CHILD); Hx Alcohol Use: No Hx Substance Use: No Preferred Language: Luxembourger Communication Ability: Effective Glue Jointer Operator Required: No Beliefs That Will Affect Care: None marital status: / Current Living Situation: Alone How many Children do You have: 5 Other Information That Helps Us Care for You: No Feels Safe at Home: Yes Safety Concerns: Feels Safe At This Time Assistive Devices: Walker Review of Systems Review of Systems: As per HPI, all other systems reviewed and negative Physical Exam Physical Exam: GENERAL: Comfortable, pleasant, slightly hard of hearing, obese, no respiratory distress SKIN: Normal color, warm HEENT: Moodys palpebral conjunctivae, no ptosis, moist buccal mucosa NECK : Supple, no tenderness CHEST : CTA, left chest wall tenderness HEART : RRR, no obvious murmurs ABDOMEN: Some distention, no tenderness EXTREMITIES : No LE swelling/tenderness, no other conspicuous deformities noted NEUROLOGIC : Coherent, no facial asymmetry, mild hearing impairment, no other gross focality Results & Data Results & Data ([facility]) Vital Signs (Past 12 Hours) Vital Signs Temp Pulse Pulse Resp BP BP Pulse Ox 05/22/22 01:20 68 16 144/61 H 98 05/21/22 23:54 98 05/21/22 23:54 69 18 134/61 99 05/21/22 23:54 05/21/22 21:21 36.9 C 73 20 149/69 H 99 O2 Del Method 05/22/22 01:20 05/21/22 23:54 Room Air 05/21/22 23:54 Room Air 05/21/22 23:54 Room Air 05/21/22 21:21 Room Air Laboratory Results Laboratory Results WBC 5.69 K/ul (4.8-10.8) 05/21/22 21:35 RBC 4.14 M/uL (3.93-5.22) 05/21/22 21:35 Hgb 12.7 g/dl (12.0-16.0) 05/21/22 21:35 Hct 38.3 % (34.1-44.9) 05/21/22 21:35 MCV 92.5 fL (80.0-100.0) 05/21/22 21:35 MCH 30.7 pg (25.0-34.0) 05/21/22 21:35 MCHC 33.2 g/dL (32.0-36.0) 05/21/22 21:35 RDW Std Deviation 44.8 fL (36.4-46.3) 05/21/22 21:35 RDW Coeff of Evelyn 13.2 % (11.5-14.5) 05/21/22 21:35 Plt Count 149 K/uL (130-400) 05/21/22 21:35 MPV 13.0 fL (9.4-12.3) H 05/21/22 21:35 Immature Gran % (Auto) 0.2 % 05/21/22 21:35 Neut % (Auto) 63.5 % 05/21/22 21:35 Lymph % (Auto) 22.0 % 05/21/22 21:35 [place] % (Auto) 10.5 % 05/21/22 21:35 Eos % (Auto) 3.3 % 05/21/22 21:35 Baso % (Auto) 0.5 % 05/21/22 21:35 Neut # (Auto) 3.61 K/uL (1.4-6.5) 05/21/22 21:35 Lymph # (Auto) 1.25 K/uL (1.2-3.4) 05/21/22 21:35 [place] # (Auto) 0.60 K/uL (0.24-0.82) 05/21/22 21:35 Eos # (Auto) 0.19 K/uL (0-0.50) 05/21/22 21:35 Baso # (Auto) 0.03 K/uL (0-0.2) 05/21/22 21:35 Immature Gran # (Auto) 0.01 K/uL (0.00-0.02) 05/21/22 21:35 PT 11.0 Seconds (9.0-12.0) 05/21/22 21:35 INR 1.0 (0.9-1.1) 05/21/22 21:35 APTT 25.8 Seconds (21.0-31.0) 05/21/22 21:35 PTT Ratio 0.9 05/21/22 21:35 D-Dimer 2370 ug/L FEU (0-500) H* 05/22/22 00:38 Sodium 137 mmol/L (136-145) 05/21/22 21:35 Potassium 4.3 mmol/L (3.5-5.1) 05/21/22 21:35 Chloride 105 mmol/L (98-107) 10/07/22 21:35 Carbon Dioxide 28 mmol/L (21-32) 05/21/22 21:35 Anion Gap 4 (3-11) 05/21/22 21:35 BUN 24 mg/dl (6-23) H 05/21/22 21:35 Creatinine 0.82 mg/dl (0.6-1.2) 05/21/22 21:35 Est Cr Clr Drug Dosing 70.3 ml/min 05/21/22 21:35 Est GFR ( Amer) 78.3 ml/min 05/21/22 21:35 Est GFR (Non-Af Amer) 67.6 ml/min 05/21/22 21:35 BUN/Creatinine Ratio 29.3 (10-20) H 05/21/22 21:35 Glucose 99 mg/dl (70-99(Fasting)) 05/21/22 21:35 Calcium 9.0 mg/dl (8.5-10.1) 05/21/22 21:35 Magnesium 2.2 mg/dl (1.7-2.4) 05/22/22 00:38 Total Bilirubin 0.7 mg/dl (0.2-1.0) 05/21/22 21:35 AST 16 U/L (13-39) 05/21/22 21:35 ALT 17 U/L (7-52) 05/21/22 21:35 Alkaline Phosphatase 128 U/L (34-104) H 05/21/22 21:35 Troponin I High Sens 4.2 pg/ml (0-14) 05/22/22 00:38 Total Protein 6.0 gm/dl (6.0-8.3) 05/21/22 21:35 Albumin 3.8 gm/dl (3.4-5.0) 05/21/22 21:35 Globulin 2.2 gm/dl (2.5-4.0) L 05/21/22 21:35 Albumin/Globulin Ratio 1.7 (0.9-2) 05/21/22 21:35 SARS-CoV-2, RNA, NAAT NEGATIVE (NEGATIVE) 05/22/22 00:[address] chest initial read: Bilateral pulmonaryemboli in both lower lobes in both upper lobes. Most are in subsegmental pulmonaryarterial branches. The largest pulmonaryembolismis in the right lower lobe. There is a moderatelylarge left pleural effusion with adjacent left lower lobe atelectasis. Abnormal dilatation of the right ventricle with flattening of the interventricular septumconsistent with right heart strain EKG as per my interpretation :rate 65, NSR, normal axis, no ischemia
[2022-05-22] MEDS ORDERED: OPTIRAY 300 500mL IV ONE (03:00)
[2022-05-22] MEDS ORDERED: oxyCODONE HCL IR 5 MG TAB (IMMEDIATE RELEASE) PO PRN (03:26)
[2022-05-22] MEDS ORDERED: POLYETHYLENE (MIRALAX) 17 GM PACK PO PRN (03:26)
[2022-05-22] MEDS ORDERED: FLUTICASONE PROPIONATE NA SPR 16 GM BTL PRN (03:26)
[2022-05-22] MEDS ORDERED: NITROGLYCERIN SL 0.4 MG/TAB TAB SL PRN (03:26)
[2022-05-22] MEDS ORDERED: PROMETHAZINE HCL 12.5 MG in SODIUM CHLORIDE 0.9% 50 ML IV PRN (03:26)
[2022-05-22] MEDS ORDERED: FLUTICASONE/SALMETEROL 250/50 (ADVAIR) 14 PUFF/1 INHALER INH PRN (03:26)
[2022-05-22] MEDS ORDERED: Heparin IV Adult Wt-Based Standard WITH Bolus Protocol IV SCH (04:34)
[2022-05-22] MEDS ORDERED: HEPARIN SOD (PORCINE) 1000 UNIT/ML IV ONE (04:35)
[2022-05-22] MEDS: HEPARIN SODIUM/DEXTROSE 25,000 UNITS/500 ML BAG IV SCH (05:14)
[2022-05-22 07:03] LABS: Hematocrit (blood only) 34.5 % (34.1-44.9); Hemoglobin 11.6 g/dl (12.0-16.0); Mean Corpuscular Hemoglobin 31.2 pg (25.0-34.0); Mean Corpuscular Hgb Conc 33.6 g/dL (32.0-36.0); Mean Corpuscular Volume 92.7 fL (80.0-100.0); RDW Coefficient of Variation 13.1 % (11.5-14.5); RDW Standard Deviation 44.2 fL (36.4-46.3); Red Blood Count 3.72 M/uL (3.93-5.22); White Blood Count 5.54 K/ul (4.8-10.8)
[2022-05-22 07:07] LABS: Basophils # (auto) 0.05 K/uL (0-0.2); Basophils % (auto) 0.9 %; Eosinophils # (auto) 0.24 K/uL (0-0.50); Eosinophils % (auto) 4.3 %; Immature Granulocytes # (auto) 0.01 K/uL (0.00-0.02); Immature Granulocytes % (auto) 0.2 %; Lymphocytes # (auto) 1.64 K/uL (1.2-3.4); Lymphocytes % (auto) 29.6 %; Mean Platelet Volume 13.4 fL (9.4-12.3); Monocytes # (auto) 0.58 K/uL (0.24-0.82); Monocytes % (auto) 10.5 %; Neutrophils # (auto) 3.02 K/uL (1.4-6.5); Neutrophils % (auto) 54.5 %; Platelet Count 133 K/uL (130-400)
[2022-05-22 07:34] LABS: BUN Creatinine Ratio 32.2 (10-20); Calcium 8.7 mg/dl (8.5-10.1); Creatinine Clr Calc Pharmacy 97.2 ml/min; Est GFR (African American) 100.3 ml/min; Est GFR (Non-African American) 86.6 ml/min; Potassium 3.9 mmol/L (3.5-5.1)
--- NOTE | 2022-05-22 08:03 | XRay Report ---
XR chest 1V portable CLINICAL HISTORY: Cough. COMPARISON STUDY: Chest radiograph November 14, 2020. FINDINGS: There is no pneumothorax. A small left pleural effusion is noted with left basilar opacity. Right lung is clear. Cardiac size is normal. There is no evidence for pulmonary edema. 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 IMPRESSION: Small left pleural effusion with left basilar opacity which could reflect pneumonia or atelectasis. R adiographic follow-up is recommended. ACT 112: Negative or not required by law. Electronically signed by: Jacobo Bravo M.D. 05/22/2022 8:02 AM
[2022-05-22] MEDS: lisinopril 5 MG TAB PO SCH (08:37)
[2022-05-22] MEDS: CETIRIZINE HCL 10 MG TABLET PO SCH (08:37)
[2022-05-22] MEDS: FLUoxetine HCL 20 MG CAP PO SCH (08:38)
[2022-05-22] MEDS: MULTIVITAMIN TAB PO SCH (08:38)
[2022-05-22] MEDS: FLUoxetine HCL 10 MG CAP PO SCH (08:38)
[2022-05-22] MEDS: FLUTICASONE/VILANTEROL 200/25MCG 14 PUFFS/INHALER INH SCH (08:38)
[2022-05-22] MEDS: ATORVASTATIN 40 MG TAB PO SCH (08:38)
--- NOTE | 2022-05-22 08:47 | Pulmonary Consultation ---
Date of Consultation May 22, 2022 Assessment & Plan (1) Pulmonary emboli: (2) Chest pain: (3) Pleural effusion: (4) Abnormal chest CT: (5) Asthma: Plan CT chest 2021 personally reviewed: Moderate left-sided pleural effusion with compression atelectasis Pulmonary emboli appreciated in the right upper and lower lower pulmonary artery No mediastinal lymphadenopathy -- Pulmonary emboli sPESI score 0, 1.1% risk Would continue with heparin drip No indication for tPA -- Left-sided pleural effusion New compared to before The only chest x-ray to compare to would be November 2020 She did have a fall with rib fracture on the left side, this likely seems to be reactive secondary to Thoracentesis could be considered as this is new pleural effusion --History of asthma Not in exacerbation Continue with Breo while in the hospital Plan: Continue with heparin drip for at least 24 hours before transition to DOAC's Left-sided pleural effusion is there, patient is not in any acute distress Never had thoracentesis in the past. I would recommend to have thoracentesis done if she is agreeable to Risk and benefit of the procedure were explained to the patient in depth. She would like to speak with the daughter and then decide If patient does plan to go ahead with thoracentesis, would hold heparin drip for 4 hours prior to the procedure Please note the above document was generated using voice recognition software. It may contain grammatical, syntax or spelling errors.Any formal questions or concerns about the content, text or information contained within the body of this dictation should be directly addressed to the provider for clarification. History of Present Illness Attending Physician: Marina Moreira MD History of Present Illness 82-year-old female presented to the hospital status post fall Past medical history: Hypertension, valvular heart disease, normal pressure hydrocephalus s/p AIRPLANE PILOT SUPERVISOR shunt Patient had a CTA chest in the ER which showed pulmonary embolism, pulmonary consulted for the same Patient was in the ER a week ago for fall as well. At the time of examination patient was resting comfortably in the bed. She was saturating 94% on room air Did complain of mild chest pain on the left side that is where she fell down. Denies any nausea or vomiting, no headache, no blurry vision No fever or chills No dysuria, no diarrhea No recent travel history. Patient was bedbound lately as she had a fall last week. Social history: Lifetime non-smoker Allergies Allergy/AdvReac Type Severity Reaction Status Date / Time Penicillins Allergy Severe SOB/HIVES Verified 05/22/22 01:07 latex Allergy Intermediate ITCHING Verified 05/22/22 01:07 vancomycin Allergy Intermediate Rash Verified 05/22/22 01:07 codeine AdvReac Intermediate Drowsy Verified 05/22/22 01:07 Home Medications Medication Instructions Recorded Confirmed Type calcium carbonate 600 mg calcium 600 mg PO BID 03/20/19 05/22/22 History (1,500 mg) tablet (Calcium) multivitamin 1 tab PO QAM 03/20/19 05/22/22 History fluoxetine 20 mg capsule 20 mg PO QAM 04/14/20 05/22/22 History fluticasone 250 mcg-salmeterol 50 1 inh inhalation BID PRN Shortness 04/14/20 05/22/22 History mcg/dose blistr powdr for Of Breath Or Wheezing inhalation (Advair Diskus) fluticasone propionate 50 2 spray intranasal DAILY PRN 04/14/20 05/22/22 History mcg/actuation nasal Allergy Symptoms spray,suspension atorvastatin 40 mg tablet 40 mg PO DAILY #30 tabs 04/19/20 05/22/22 Rx polyethylene glycol 3350 17 17 g PO BID PRN constipation #510 04/19/20 05/22/22 Rx gram/dose oral powder (Miralax) grams lisinopril 5 mg tablet 5 mg PO DAILY 12/29/21 05/22/22 History albuterol sulfate 90 mcg/actuation 2 puff inhalation QID PRN 05/22/22 05/22/22 History aerosol inhaler (ProAir HFA) Shortness Of Breath Or Wheezing alendronate 70 mg tablet 70 mg PO WE 05/22/22 05/22/22 History cetirizine 10 mg tablet (Zyrtec) 10 mg PO DAILY 05/22/22 05/22/22 History cholecalciferol (vitamin D3) 125 125 mcg PO DAILY 05/22/22 05/22/22 History mcg (5,000 unit) tablet (Vitamin D3) fluoxetine 10 mg capsule 10 mg PO QAM 05/22/22 05/22/22 History melatonin 10 mg tablet 10 mg PO HS 05/22/22 05/22/22 History Patient History Medical History Asthma RARELY USES PRN INH Dyslipidemia Hearing deficit BL JONES History of benign breast biopsy History of hydrocephalus S/P SHUNT PLACEMENT - 2014 - CAUSE? Hypertension Osteoarthritis Thrombocytopenia Valvular heart disease PT UNABLE TO PROVIDE SPECIFICS - DOES NOT FOLLOW W/ CARDIO - PCP MONITORING - ECHO DONE SPRING 2018 [facility] Surgical History History of back surgery LUMBAR History of cataract surgery History of cholecystectomy History of colonoscopy History of esophagogastroduodenoscopy (EGD) History of hammertoe correction History of lumpectomy History of oophorectomy, unilateral History of sinus surgery Presence of intracranial shunt Social History Smoking Status: Never smoker Second Hand Exposure: Yes ( A CHILD); Hx Alcohol Use: No Hx Substance Use: No Preferred Language: Luxembourgish Communication Ability: Effective Steam And Power Supervisor Required: No Beliefs That Will Affect Care: None marital status: / Current Living Situation: Alone How many Children do You have: 5 Other Information That Helps Us Care for You: No Feels Safe at Home: Yes Safety Concerns: Feels Safe At This Time Assistive Devices: None Review of Systems Review of Systems: All systems reviewed & are unremarkable except as noted in HPI & below Physical Exam Physical Exam: Constitutional: No acute distress HEENT: EOMI, PERRLA Respiratory system: Mild decreased air entry on the left side, no wheeze, rhonchi, mild crackles bilateral lower lobes CVS: S1-S2 positive, no murmurs or gallops Abdomen: Soft, nontender, nondistended, positive bowel sounds x4 Extremities: +2 pulses bilaterally radialis/ dorsalis pedis, no cyanosis, no edema Neuro: Awake alert oriented x3 Psych: Normal mood and affect G/U: No Martin Skin: no rashes, warm and dry Lymphatic: no cervical or axillary lymphadenopathy Results & Data Results & Data ([facility]) Vital Signs (Past 12 Hours) Vital Signs Temp Pulse Pulse Resp BP BP Pulse Ox 05/22/22 08:05 36.7 C 65 18 153/64 H 96 05/22/22 06:12 61 05/22/22 03:35 67 05/22/22 03:35 36.8 C 65 18 155/63 H 97 05/22/22 01:20 68 16 144/61 H 98 05/21/22 23:54 98 05/21/22 23:54 69 18 134/61 99 05/21/22 23:54 05/21/22 21:21 36.9 C 73 20 149/69 H 99 O2 Del Method 05/22/22 08:05 Room Air 05/22/22 06:12 05/22/22 03:35 05/22/22 03:35 Room Air 05/22/22 01:20 05/21/22 23:54 Room Air 05/21/22 23:54 Room Air 05/21/22 23:54 Room Air 05/21/22 21:21 Room Air Laboratory Results 05/22/22 06:31 05/22/22 06:31 PG Care Time/CCT Total # of Minutes Spent Total Time Spent with Patient: Total time spent is greater than 50% in coordination of care (as documented) at patient's floor/unit and/or counseling patient: Coding Level of Care Code 34663 Initial Inpt Care Lvl 3 Diagnoses Pulmonary emboli I26.99 Chest pain R07.9 Pleural effusion J90 Abnormal chest CT R93.89 Asthma J45.909
[2022-05-22] MEDS ORDERED: ENOXAPARIN INJ 40 MG/0.4 ML SYR SQ SCH (09:00)
--- NOTE | 2022-05-22 09:18 | CT Scan Report ---
CT angio chest PE protocol CT DOSE: 293.61 mGy.cm HISTORY: 82 years-old Female with cp. Acute shortness of breath with history of left-sided rib frac tures TECHNIQUE: Multiple CTA images of the chest were obtained after the intravenous administration of 114 ml Optiray. Coronal and sagittal MIPS were obtained from the axial data set and were submitted for review. All measurements were obtained according to NASCET criteria. A dose lowering technique was u tilized adhering to the principles of ALARA. COMPARISON: Chest radiograph 05/21/2022, CTA chest 01/03/2018, lumbar spine radiographs 12/29/2021. FINDINGS: CTA: The heart is mildly enlarged. Trace pericardial effusion. Atherosclerosis of the thoracic aorta witho ut aneurysm or dissection. Respiratory motion artifact limits evaluation of the pulmonary arterial tr ee. Bilateral segmental and subsegmental pulmonary emboli are most pronounced within the right lung. Mild straightening of the intraventricular septum. No central pulmonary embolus. CT CHEST: 2.9 x 2.6 cm hypodense left-sided thyroid nodule. No lymphadenopathy. Moderate sized left pleural eff usion. No pneumothorax. Mild left basilar consolidation. There are no suspicious pulmonary nodules or masses identified. Central airways appear patent. Mild bronchial wall thickening. Mild nonspecific distal esophageal wall thickening. No acute process of the imaged upper abdomen. Unr emarkable soft tissues. No acute fracture. Healed chronic left-sided rib fractures. Chronic T11 and L 1 compression fractures. Subacute to chronic appearing nondisplaced sternal body fracture, new from p rose. IMPRESSION: 1. Limited exam secondary to respiratory motion artifact. There are bilateral segmental and subsegmen yari pulmonary emboli with possible right heart strain. 2. Moderate left pleural effusion with left basilar consolidation suggestive of compressive atelectas is. Pneumonia considered less likely. 3. Subacute to chronic nondisplaced sternal fracture, new from 2018. ACT 112: Negative or not required by law. The above report was generated using voice recognition software. It may contain grammatical, syntax o r spelling errors. Electronically signed by: Mynor Smiley M.D. 05/22/2022 9:16 AM
--- NOTE | 2022-05-22 11:48 | Ultrasound Report ---
BILATERAL LOWER EXTREMITY VENOUS DOPPLER CLINICAL HISTORY: Pulmonary embolus workup. COMPARISON STUDY: No previous studies for comparison. TECHNIQUE: Sonography of the deep venous system of the bilateral lower extremities was performed. Co mpression and augmentation were evaluated. FINDINGS: The bilateral common femoral, superficial femoral and popliteal veins were compressible. A ugmentation was normal. Flow was shown within the deep calf vessels. IMPRESSION: No evidence of deep venous thrombus within the bilateral lower extremities. ACT 112: Negative or not required by law. Electronically signed by: Jacobo Bravo M.D. 05/22/2022 11:47 AM
[2022-05-22 12:09] LABS: Partial Thromboplastin Ratio 2.4
--- NOTE | 2022-05-22 16:23 | Hospitalist Progress Note ---
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 Of note, patient had recurrent falls lately, patient reports lightheaded and weak prior to fall, no syncope. For the fall last month, patient was evaluated at [facility] around 3 weeks ago CONTENT WRITER where she was found to have nondisplaced fracture of anterolateral left ninth and 10th ribs. Patient also fell at home and hit her head last week. Patient was seen by her [facility] neurosurgeon for NPH/CAR CLERK PULLMAN shunt follow-up evaluation 4 days ago CONTENT WRITER where provider was made aware of gait/balance disturbances. Shunt series and outpatient PT/balance center evaluation recommended by provider. She is being managed for the following while in hospital: Bilateral pulmonary emboli with possible right heart strain Patient had a long flight to [place] 3 weeks ago CONTENT WRITER, patient had not been moving around much due to fear of falling. Possibly related to decreased mobility following multiple falls secondary to ambulatory dysfunction in the last month Patient presented with right-sided chest discomfort [see above] Admitting CXR with left pleural effusion with left basilar opacity. Admitting CTA chest with bilateral segmental and subsegmental pulmonary emboli with possible right heart strain Admitting BLE venous Doppler: No DVT. Troponin trends negative, echo with EF of 60 to 65%, LV systolic function normal, RV systolic function normal. Patient started on heparin drip, continue. Patient interested in Eliquis. Patient's daughter Ame Dang was updated at bedside. Pulmonology on board, appreciate recommendation. Moderate left-sided pleural effusion: New compared to before, pulm on board, likely thoracentesis tomorrow. Recurrent falls Chronic to subacute nondisplaced sternal fracture Ambulatory dysfunction Weakness Patient had recurrent falls, trauma to her chest in the recent past [see above] Patient has been recommended shunt series and outpatient PT/balance center evaluation by her [facility] neurosurgeon [see above] PT/OT to eval Patient to maintain recommendation from her outpatient [facility] neurosurgeon Fall precaution. Ortho vitals. 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 DVT prophylaxis: Heparin drip Full code Patient's daughter Ms. Ame Dang, contact #[phone]. Admission and Anticipated Discharge Date Admission Date: May 22, 2022 Subjective Patient seen and examined at bedside as a follow-up of pulmonary emboli and left-sided pleural effusion. Of note, patient is hard of hearing. Patient was lying in bed, on room air, heparin drip running, denies any new acute event overnight, reports eating okay and moving bowels okay, denies any headache/chest pain/sore throat/cough/belly pain/acute changes in her bowel or bladder habits/other review of symptoms. Physical Exam Physical Exam: GENERAL: Alert and oriented x3. NAD, on RA. HEENT: No pallor, no icterus. Pupils equal, round and reactive to light. Oral mucosa moist. NECK: No JVD, no neck masses. HEART: S1 and S2 heard. Regular rate and rhythm. No murmur, no gallop. RESPIRATORY SYSTEM: Normal AP diameter. No accessory muscle use. No wheezing, no crackles. ABDOMEN: Soft, bowel sounds present, nontender, no distention. CENTRAL NERVOUS SYSTEM: No facial droop. Speech is clear. Obeys simple commands. Moves extremities. EXTREMITIES: No edema, no erythema seen. Results & Data Results & Data ([facility]) Vital Signs (Past 12 Hours) Vital Signs Temp Pulse Pulse Resp BP Pulse Ox O2 Del Method 05/22/22 14:15 66 05/22/22 15:28 37.0 C 67 17 150/49 H 97 Room Air 05/22/22 11:22 37.3 C 69 16 155/63 H 96 Room Air 05/22/22 08:05 36.7 C 65 18 153/64 H 96 Room Air 05/22/22 06:12 61
--- NOTE | 2022-05-22 16:27 | Electrocardiogram Report ---
Test Reason : Blood Pressure : / mmHG Vent. Rate : 067 BPM Atrial Rate : 067 BPM P-R Int : 138 ms QRS Dur : 100 ms QT Int : 420 ms P-R-T Axes : 054 065 062 degrees QTc Int : 443 ms Poor data quality, interpretation may be adversely affected Normal sinus rhythm Normal ECG When compared with ECG of 14-NOV-2020 00:58, No significant change was found Confirmed by David Chavez ([id number]) on 05/22/2022 4:27:03 PM Referred By: REFERRED SELF Confirmed By:David Chavez
[2022-05-22] MEDS: MELATONIN 3 MG TAB PO SCH (21:12)
[2022-05-23] MEDS: HEPARIN SODIUM/DEXTROSE 25,000 UNITS/500 ML BAG IV SCH (00:09)
[2022-05-23] MEDS: ACETAMINOPHEN 325 MG TAB PO PRN ×2 (03:05→11:33)
[2022-05-23 06:38] LABS: Hemoglobin 11.8 g/dl (12.0-16.0); Mean Corpuscular Hemoglobin 30.6 pg (25.0-34.0); Mean Corpuscular Hgb Conc 33.7 g/dL (32.0-36.0); Mean Corpuscular Volume 90.7 fL (80.0-100.0); RDW Coefficient of Variation 13.2 % (11.5-14.5); RDW Standard Deviation 43.5 fL (36.4-46.3); Red Blood Count 3.86 M/uL (3.93-5.22); White Blood Count 6.28 K/ul (4.8-10.8)
[2022-05-23 06:56] LABS: BUN Creatinine Ratio 27.7 (10-20); Calcium 8.9 mg/dl (8.5-10.1); Creatinine Clr Calc Pharmacy 88.1 ml/min; Est GFR (African American) 97.2 ml/min; Est GFR (Non-African American) 83.9 ml/min; Potassium 3.7 mmol/L (3.5-5.1)
[2022-05-23 07:07] LABS: Mean Platelet Volume 13.2 fL (9.4-12.3); Platelet Count 136 K/uL (130-400)
[2022-05-23 07:16] LABS: Partial Thromboplastin Ratio 3.1
[2022-05-23 07:19] LABS: Partial Thromboplastin Time 84.7 Seconds (21.0-31.0)
[2022-05-23] MEDS: CETIRIZINE HCL 10 MG TABLET PO SCH (08:56)
[2022-05-23] MEDS: MULTIVITAMIN TAB PO SCH (08:57)
[2022-05-23] MEDS: lisinopril 5 MG TAB PO SCH (08:57)
[2022-05-23] MEDS: FLUoxetine HCL 10 MG CAP PO SCH (08:57)
[2022-05-23] MEDS: FLUoxetine HCL 20 MG CAP PO SCH (08:57)
[2022-05-23] MEDS: ATORVASTATIN 40 MG TAB PO SCH (08:57)
[2022-05-23] MEDS: FLUTICASONE/VILANTEROL 200/25MCG 14 PUFFS/INHALER INH SCH (08:57)
--- NOTE | 2022-05-23 10:37 | Pulmonology Progress Note ---
Date of Service May 23, 2022 Assessment & Plan (1) Pulmonary emboli: (2) Chest pain: (3) Pleural effusion: (4) Abnormal chest CT: (5) Asthma: Plan CT chest 2021 personally reviewed: Moderate left-sided pleural effusion with compression atelectasis Pulmonary emboli appreciated in the right upper and lower lower pulmonary artery No mediastinal lymphadenopathy -- Pulmonary emboli sPESI score 0, 1.1% risk Doppler bilateral lower extremity negative for PE Would continue with heparin drip No indication for tPA -- Left-sided pleural effusion New compared to before The only chest x-ray to compare to would be November 2020 She did have a fall with rib fracture on the left side, this likely seems to be reactive secondary to Thoracentesis could be considered as this is new pleural effusion --History of asthma Not in exacerbation Continue with Breo while in the hospital Plan: Plan for thoracentesis today Heparin drip has been hold since 9 AM risk and benefit of the procedure explained to patient and that She understands and agrees to go ahead with the procedure Consent signed, witnessed and put in the chart Please note the above document was generated using voice recognition software. It may contain grammatical, syntax or spelling errors.Any formal questions or concerns about the content, text or information contained within the body of this dictation should be directly addressed to the provider for clarification. Admission and Anticipated Discharge Date Admission Date: May 22, 2022 Subjective Patient seen and examined at bedside. No acute distress, no adverse events overnight She was saturating 94% on room air at the time of examination Complains of right-sided pleuritic chest pain No headache, no nausea, no vomiting Fair appetite. Review of Systems Review of Systems: All systems reviewed & are unremarkable except as noted in Subjective Physical Exam Physical Exam: Constitutional: No acute distress HEENT: EOMI, PERRLA Respiratory system: Mild decreased air entry on the left side, no wheeze, rhonchi, mild crackles bilateral lower lobes CVS: S1-S2 positive, no murmurs or gallops Abdomen: Soft, nontender, nondistended, positive bowel sounds x4 Extremities: +2 pulses bilaterally radialis/ dorsalis pedis, no cyanosis, no edema Neuro: Awake alert oriented x3 Psych: Normal mood and affect G/U: No Martin Skin: no rashes, warm and dry Lymphatic: no cervical or axillary lymphadenopathy Results & Data Results & Data ([facility]) Vital Signs (Past 12 Hours) Vital Signs Temp Pulse Pulse Resp BP Pulse Ox O2 Del Method 05/23/22 08:00 Room Air 05/23/22 07:32 36.9 C 64 17 125/56 L 93 Room Air 05/23/22 06:13 64 05/23/22 03:03 37.0 C 76 20 149/57 H 94 Room Air 05/22/22 23:03 77 Laboratory Results 05/23/22 06:06 05/23/22 06:06 PG Care Time/CCT Total # of Minutes Spent Total Time Spent with Patient: Total time spent is greater than 50% in coordination of care (as documented) at patient's floor/unit and/or counseling patient: Coding Level of Care Code 09676 Subseq Hosp Care Lvl 2 Diagnoses Pulmonary emboli I26.99 Chest pain R07.9 Pleural effusion J90 Abnormal chest CT R93.89 Asthma J45.909
--- NOTE | 2022-05-23 14:27 | Procedure Note ---
Procedure Note Date of Service May 23, 2022 Note Procedure: Diagnostic therapeutic ultrasound-guided catheter thoracentesis Income Tax Adjuster: Dr. Evi Simon Indication: Left-sided pleural effusion Consent: Signed by patient and verified with timeout prior to procedure Anesthesia: 1% lidocaine without epinephrine local. Procedure: Consent was verified and timeout performed. Appropriate imaging studies were reviewed prior to the procedure. Patient was placed in a seated position and limited thoracic ultrasound was performed of the left chest. See separate imaging. Appropriate site above the diaphragm for thoracentesis was selected. The skin was prepped and draped in normal sterile fashion. Lidocaine was used for local analgesia. Fluid was aspirated via the finder needle. A small skin shruti was made with the scalpel and the catheter over the needle apparatus was advanced over the rib into the pleural space. Using the syringe one-way valve system, a total of 650 mL's of bloody fluid was removed. The catheter was removed and observed to be intact. A sterile dressing was applied. Post procedure chest x-ray was ordered. Good lung sliding was appreciated on ultrasound postprocedure Fluid was sent for labs, culture and cytology. Complications: None Blood loss: None Coding CPT Codes Pulmonary/Thoracic - Pulmonary and Thoracic: 81724 Thoracentesis w imaging ([id number]) [facility] Procedure Codes (Charges) Pulmonary/Thoracic Procedure 1: Pulmonary and Thoracic: 61846 Thoracentesis w imaging
--- NOTE | 2022-05-23 14:27 | XRay Report ---
XR chest 1V portable HISTORY: 82 years-old Female s/p left thoracentesis follow-up study in a patient with left pleural e ffusion status post thoracentesis COMPARISON: Chest radiograph 05/21/2022, CTA chest 05/22/2022 TECHNIQUE: AP view of the chest FINDINGS: Small left pleural effusion has decreased in size status post thoracentesis. No definite postprocedur al pneumothorax identified. There is a subtle line projected over the left lung apex. Mild bibasilar opacities. Cardiomegaly with atherosclerosis of the aorta. The bones appear grossly intact. IMPRESSION: 1. Small left pleural effusion has decreased in size status post thoracentesis. 2. Subtle line projects of the left lung apex is likely artifactual. A tiny pneumothorax a skin consi dered less likely. A 12 hour follow-up chest x-ray is recommended. 3. Persistent left basilar consolidation. ACT 112: Negative or not required by law. The above report was generated using voice recognition software. It may contain grammatical, syntax o r spelling errors. Electronically signed by: Mynor Smiley M.D. 05/23/2022 2:25 PM
--- NOTE | 2022-05-23 14:52 | Hospitalist Progress Note ---
Date of Service May 23, 2022 Assessment & Plan (1) Pulmonary emboli: Plan 82-year-old lady with PMH of HTN, pulmonary HTN, valvular heart disease [moderate TR, mild AR/MR], NPH status post CREDIT INTERN shunt placement, mood disorder, thyroid nodule, chronic thrombocytopenia, ambulatory dysfunction presented to the hospital with complaint of right-sided chest discomfort close to shoulder 1 day prior to arrival which later felt like substernal discomfort like someone sitting on her chest. Of note, patient had recurrent falls lately, patient reports lightheaded and weak prior to fall, no syncope. For the fall last month, patient was evaluated at [facility] around 3 weeks ago HISTOLOGIST TECHNOLOGIST where she was found to have nondisplaced fracture of anterolateral left ninth and 10th ribs. Patient also fell at home and hit her head last week. Patient was seen by her [facility] neurosurgeon for NPH/CREDIT INTERN shunt follow-up evaluation 4 days ago HISTOLOGIST TECHNOLOGIST where provider was made aware of gait/balance disturbances. Shunt series and outpatient PT/balance center evaluation recommended by provider. She is being managed for the following while in hospital: Bilateral pulmonary emboli with possible right heart strain Pleuritic rt chest pain Patient had a long flight to [place] 3 weeks ago HISTOLOGIST TECHNOLOGIST, patient had not been moving around much due to fear of falling. Possibly related to decreased mobility following multiple falls secondary to ambulatory dysfunction in the last month Patient presented with right-sided chest discomfort [see above] Admitting CXR with left pleural effusion with left basilar opacity. Admitting CTA chest with bilateral segmental and subsegmental pulmonary emboli with possible right heart strain Admitting BLE venous Doppler: No DVT. Troponin trends negative, echo with EF of 60 to 65%, LV systolic function normal, RV systolic function normal. Patient started on heparin drip, continue. Patient interested in Eliquis, eliquis costs 147.67/month, working on Zync[employer] Pulmonology on board, appreciate recommendation. Pain Mx for her Rt side pleuritic chest pain. Tylenol JULIET for now. Moderate left-sided pleural effusion: New compared to before, pulm on board, Lt thoracentesis 05/23 --650 ml of bloody fluid was removed, f/u w/ analysis and Cx studies. f/u repeat CXR in AM Recurrent falls Chronic to subacute nondisplaced sternal fracture Ambulatory dysfunction Weakness Orthostatic hypotension Patient had recurrent falls, trauma to her chest in the recent past [see above] Patient has been recommended shunt series and outpatient PT/balance center evaluation by her [facility] neurosurgeon [see above] PT/OT to eval Patient to maintain recommendation from her outpatient [facility] neurosurgeon Fall precaution. Ortho vitals are positive, slow transition between lying/si tting/standing position. Other chronic medical conditions: HTN, NPH status post CREDIT INTERN shunt placement, thyroid nodule [follows [facility] provider], thrombocytopenia -->> continue with/resume home meds as and when appropriate. DVT prophylaxis: Heparin drip Full code Patient's daughter Ms. Ame Dang, contact #[phone]. Updated at bedside 05/22. Admission and Anticipated Discharge Date Admission Date: May 22, 2022 Subjective Patient seen and examined at bedside as a follow-up of pulmonary emboli and left-sided pleural effusion. Of note, patient is hard of hearing. Patient was lying in bed, on room air, heparin drip running, denies any new acute event overnight, reports eating okay and moving bowels okay, states mild right sided low chest pain on deep breathing, denies any headache/chest pain/sore throat/cough/belly pain/acute changes in her bowel or bladder habits/other review of symptoms. Physical Exam Physical Exam: GENERAL: Alert and oriented x3. NAD, on RA. HEENT: No pallor, no icterus. Pupils equal, round and reactive to light. Oral mucosa moist. NECK: No JVD, no neck masses. HEART: S1 and S2 heard. Regular rate and rhythm. No murmur, no gallop. RESPIRATORY SYSTEM: Normal AP diameter. No accessory muscle use. No wheezing, no crackles. ABDOMEN: Soft, bowel sounds present, nontender, no distention. CENTRAL NERVOUS SYSTEM: No facial droop. Speech is clear. Obeys simple commands. Moves extremities. EXTREMITIES: No edema, no erythema seen. Results & Data Results & Data ([facility]) Vital Signs (Past 12 Hours) Vital Signs Temp Pulse Pulse Resp BP Pulse Ox O2 Del Method 05/23/22 12:53 36.4 C L 97 Room Air 05/23/22 08:00 Room Air 05/23/22 07:32 36.9 C 64 17 125/56 L 93 Room Air 05/23/22 06:13 64 05/23/22 03:03 37.0 C 76 20 149/57 H 94 Room Air
[2022-05-23] MEDS: ACETAMINOPHEN 325 MG TAB PO SCH ×3 (15:09→22:36)
[2022-05-23 15:15] LABS: Albumin Level 3.5 gm/dl (3.4-5.0); Bilirubin,Total 1.1 mg/dl (0.2-1.0); Total Protein 6.2 gm/dl (6.0-8.3)
[2022-05-23 15:24] LABS: Total Protein Pleural Fluid 3.9 gm/dl
[2022-05-23 15:32] LABS: Appearance Pleural Fluid Cloudy; Color Pleural Fluid Orange; RBC Pleural Fluid (A) 28000 /uL; Source Pleural Fluid Left Lung; WBC Pleural Fluid (A) 5650 /uL
[2022-05-23 16:01] LABS: Basophils, Fluid 2 %; Eosinophils, Fluid 30 %; Lymphocytes, Fluid 11 %; Mono,Macrophage,Mesothelial 2 %; Neutrophils, Fluid 55 %
[2022-05-23] MEDS: MELATONIN 3 MG TAB PO SCH (21:07)
[2022-05-23 22:11] LABS: Partial Thromboplastin Ratio 2.5
[2022-05-23 22:31] LABS: Partial Thromboplastin Time 67.8 Seconds (21.0-31.0)
[2022-05-24] MEDS: HEPARIN SODIUM/DEXTROSE 25,000 UNITS/500 ML BAG IV SCH (02:49)
[2022-05-24] MEDS: ACETAMINOPHEN 325 MG TAB PO SCH ×2 (05:23→11:35)
[2022-05-24 06:14] LABS: Hematocrit (blood only) 34.7 % (34.1-44.9); Hemoglobin 11.6 g/dl (12.0-16.0); Mean Corpuscular Hemoglobin 30.7 pg (25.0-34.0); Mean Corpuscular Hgb Conc 33.4 g/dL (32.0-36.0); Mean Corpuscular Volume 91.8 fL (80.0-100.0); RDW Coefficient of Variation 13.1 % (11.5-14.5); RDW Standard Deviation 43.8 fL (36.4-46.3); Red Blood Count 3.78 M/uL (3.93-5.22)
[2022-05-24 06:22] LABS: Mean Platelet Volume 13.5 fL (9.4-12.3); Platelet Count 124 K/uL (130-400)
[2022-05-24 06:51] LABS: BUN Creatinine Ratio 31.1 (10-20); Calcium 8.7 mg/dl (8.5-10.1); Creatinine Clr Calc Pharmacy 93.8 ml/min; Est GFR (African American) 99.2 ml/min; Est GFR (Non-African American) 85.6 ml/min; Magnesium 2.1 mg/dl (1.7-2.4)
[2022-05-24 07:10] LABS: Partial Thromboplastin Ratio 3.1
[2022-05-24 07:30] LABS: Partial Thromboplastin Time 84.8 Seconds (21.0-31.0)
[2022-05-24] MEDS: FLUTICASONE/VILANTEROL 200/25MCG 14 PUFFS/INHALER INH SCH (08:19)
[2022-05-24] MEDS: FLUoxetine HCL 20 MG CAP PO SCH (08:20)
[2022-05-24] MEDS: lisinopril 5 MG TAB PO SCH (08:20)
[2022-05-24] MEDS: ATORVASTATIN 40 MG TAB PO SCH (08:20)
[2022-05-24] MEDS: CETIRIZINE HCL 10 MG TABLET PO SCH (08:20)
[2022-05-24] MEDS: MULTIVITAMIN TAB PO SCH (08:20)
[2022-05-24] MEDS: FLUoxetine HCL 10 MG CAP PO SCH (08:20)
--- NOTE | 2022-05-24 08:43 | XRay Report ---
XR chest 1V portable HISTORY: Status post left-sided thoracentesis. Follow-up. COMPARISON: Chest 05/23/2022. FINDINGS: No pneumothorax. The heart remains mildly enlarged. No change in the small left pleural eff usion and left basilar densities suggesting subsegmental atelectasis. The right lung is clear. IMPRESSION: Small left pleural effusion unchanged. No pneumothorax. ACT 112: Negative or not required by law. Electronically signed by: Jarad Warner M.D. 05/24/2022 8:42 AM
--- NOTE | 2022-05-24 09:33 | Pulmonology Progress Note ---
Date of Service May 24, 2022 Assessment & Plan (1) Pulmonary emboli: (2) Chest pain: (3) Pleural effusion: (4) Abnormal chest CT: (5) Asthma: Plan Impression: 82-year-old female with PE and pleural effusion status postthoracentesis 05/23/2022. Recommendations: 1. Acute pulmonary embolism: Currently anticoagulated on heparin. Okay to transition to DOAC. Given the potential unprovoked nature of the clot, could make a case for lifelong anticoagulation. At a minimum, would recommend 6 months of anticoagulation. Follow-up with hematology in the outpatient setting may be recommended to evaluate for potential thrombophilia if anticoagulation were to be stopped. 2. Pleural effusion: Likely secondary to trauma as well as acute PE. Status postthoracentesis. Cytology is pending and will need to be followed up in the outpatient setting with the patient's primary care provider. Minimal reaccumulation on chest x-ray. Continue supportive care. 3. Chest pain: Pain management per primary service. The patient inquires about being able to go home. From a pulmonary standpoint, she is stable to discharge. If outpatient pulmonary follow up is needed, patient may follow up with Dr. Simon in clinic. Admission and Anticipated Discharge Date Admission Date: May 22, 2022 Subjective Patient seen and examined. EMR reviewed. Discussed with off going laborer poultry hatchery. The patient states that she feels better after having the effusion drained yesterday. She continues to complain of chest discomfort which is pleuritic in nature and worse when she takes a deep breath. She is not on oxygen. She denies any syncope or presyncope. No significant lower extremity edema. Review of Systems Review of Systems: All systems reviewed & are unremarkable except as noted in Subjective Physical Exam Constitutional: WD/WN, vitals as above Neck: trachea midline, no thyromegaly Respiratory: normal respiratory effort, lungs clear to auscultation Cardiovascular: RRR, no murmur, no edema Chest (Breasts): Additional Comments: Thoracentesis site clean dry and intact with no evidence of hematoma formation Gastrointestinal (Abdomen): normal bowel sounds, soft, nontender, no hepatosplenomegaly Musculoskeletal: Extremities: extremities normal to inspection Skin: no rashes, warm and dry Neurologic: Nonfocal exam Lymphatic: no cervical lymphadenopathy Results & Data Results & Data ([facility]) Vital Signs (Past 12 Hours) Vital Signs Temp Pulse Pulse Resp BP Pulse Ox O2 Del Method 05/24/22 05:59 62 05/24/22 07:34 37.0 C 67 17 144/58 H 92 Room Air 05/24/22 03:30 36.8 C 64 18 131/59 L 94 05/24/22 00:35 70 05/23/22 23:13 36.6 C 69 18 138/45 L 94 Laboratory Results 05/24/22 05:50 05/24/22 05:50 Pleural fluid studies: Differential 55% neutrophils, 11% lymphocytes, 30% eosinophils, 2% basophils and 2% mononuclear cells Pleural pH 7.45 Pleural total protein 3.9 Pleural LDH 243 Pleural glucose 109 Pleural amylase 17 Pleural cytology pending Pleural gram stain and culture: Culture pending, gram stain with many polys no organisms AFB cultures and stains pending Diagnostic Findings Post procedure chest x-ray and chest x-ray from today independently reviewed. There is slight blunting of the left costophrenic angle with mild vascular prominence. No cardiomegaly. No evidence of pneumothorax. PG Care Time/CCT Total # of Minutes Spent Total Time Spent with Patient: Total time spent is greater than 50% in coordination of care (as documented) at patient's floor/unit and/or counseling patient: Coding Level of Care Code 38119 Subseq Hosp Care Lvl 2 Diagnoses Pulmonary emboli I26.99 Chest pain R07.9 Pleural effusion J90 Abnormal chest CT R93.89 Asthma J45.909
[2022-05-24] MEDS ORDERED: APIXABAN 5 MG TABLET PO SCH (10:45)
--- NOTE | 2022-05-24 12:27 | Discharge Summary ---
Discharge Summary Date of Service May 24, 2022 Notes For Next Care Provider Patient will need PCP visit in a week time, likely blood test CBC/BMP/magnesium level. Patient is started on Eliquis for her bilateral lung clots. Patient had left pleural effusion, likely traumatic drained. Her pleural effusion culture and pathology needs to be followed. Medication Changes From Visit Eliquis has been added to her medication list. Admission HPI Per Admitting Provider History obtained from patient, family, and records. 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 Patient fell in the bathtub last month. Pleuritic left-sided chest pain. Patient evaluated at [facility] ER 3 weeks ago. Trauma scan results as follows. Chest: 1. Nondisplaced fractures of the anterolateral left 9th and 10th ribs. Mild overlying chest wall subcutaneous contusions. 2. Small left pleural effusion. Bibasilar atelectasis. No pneumothorax. 3. Small hiatal hernia. 4. Other incidental findings as detailed above. Abdomen/pelvis: 1. No findings to suggest acute abdominal or pelvic visceral injury. 2. A small density in the lower pole of the left kidney measuring 0.9 cm, too dense for a simple cyst. The differential diagnosis includes a hyperdense cyst or a solid lesion. Consider a follow up renal ultrasound for further evaluation. 3. Other incidental findings as detailed above. Bones: 1. Mild compression deformities of several thoracic and lumbar vertebral bodies are age indeterminate. Please correlate clinically. 2. A small nonspecific sclerotic lesion in the left posterior T10 vertebral body. As clinically indicated, consider a follow-up MRI for further evaluation. 3. Nondisplaced fractures of the anterolateral left 9th and 10th ribs. Fall at home into head trauma last week. Patient felt lightheaded and weak as per report. No syncope. Patient evaluated at [facility] Subsequently discharged home with imaging work-up unchanged from [facility] ER visit. Patient not moving as much since injuries due to fear of falling. Patient seen by her [facility] neurosurgeon on NPH/MONUMENT LETTERER shunt follow-up evaluation 4 days ago. Provider made aware of gait/balance disturbances. Shunt series and outpatient PT/balance center evaluation recommended by provider Yesterday morning, patient had transient achy right-sided chest discomfort close to the shoulder. Patient later on noted substernal discomfort like someone sitting on her chest. Patient with lightheadedness. No headache complaints. No cough. Patient possibly short of breath with exertion. Patient brought by daughter to the ER for evaluation. Medical Historyas above Surgical History : MONUMENT LETTERER shunt placement, breast lesion excision, oophorectomy, cataract surgery, cholecystectomy Family History : Breast cancer, mitral valve prolapse Personal/Social history : Non-smoker, no EtOH intake, homemaker in her younger years Admission Exam Per Admitting Provider GENERAL: Comfortable, pleasant, slightly hard of hearing, obese, no respiratory distress SKIN: Normal color, warm HEENT: [place] palpebral conjunctivae, no ptosis, moist buccal mucosa NECK : Supple, no tenderness CHEST : CTA, left chest wall tenderness HEART : RRR, no obvious murmurs ABDOMEN: Some distention, no tenderness EXTREMITIES : No LE swelling/tenderness, no other conspicuous deformities noted NEUROLOGIC : Coherent, no facial asymmetry, mild hearing impairment, no other gross focality Principal Dx & Hospital Course #1 = Principal Diagnosis (1) Pulmonary emboli: Plan 82-year-old lady with PMH of HTN, pulmonary HTN, valvular heart disease [moderate TR, mild AR/MR], 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 Of note, patient had recurrent falls lately, patient reports lightheaded and weak prior to fall, no syncope. For the fall last month, patient was evaluated at [facility] around 3 weeks ago [employer] where she was found to have nondisplaced fracture of anterolateral left ninth and 10th ribs. Patient also fell at home and hit her head last week. Patient was seen by her [facility] neurosurgeon for NPH/MONUMENT LETTERER shunt follow-up evaluation 4 days ago [employer] where provider was made aware of gait/balance disturbances. Shunt series and outpatient PT/balance center evaluation recommended by provider. She was managed for the following while in hospital: Bilateral pulmonary emboli with possible right heart strain Pleuritic rt chest pain Patient had a long flight to [place] 3 weeks ago [employer], patient had not been moving around much due to fear of falling. Possibly related to decreased mobility following multiple falls secondary to ambulatory dysfunction in the last month Patient presented with right-sided chest discomfort [see above] Admitting CXR with left pleural effusion with left basilar opacity. Admitting CTA chest with bilateral segmental and subsegmental pulmonary emboli with possible right heart strain Admitting BLE venous Doppler: No DVT. Troponin trends negative, echo with EF of 60 to 65%, LV systolic function normal, RV systolic function normal. Patient wanted to go with Eliquis after making her aware of eliquis and xarelto cost ( 147.67 vs 39.00 resp). Patient transitioned from heparin drip to Eliquis on 05/24/2020 2 AM. Pulmonology on board, appreciate recommendation. Pain Mx for her Rt side pleuritic chest pain. Tylenol JULIET for now. Moderate left-sided pleural effusion: New compared to before, likely traumatic, pulm on board, Lt thoracentesis 05/23 --650 ml of bloody fluid was removed, repeat CXR in a.m. reviewed, patient made aware to follow-up with pleural pathology and culture with PCP as an outpatient. Recurrent falls Chronic to subacute nondisplaced sternal fracture Ambulatory dysfunction Weakness Orthostatic hypotension Patient had recurrent falls, trauma to her chest in the recent past [see above] Patient has been recommended shunt series and outpatient PT/balance center evaluation by her [facility] neurosurgeon [see above] PT/OT to eval Patient to maintain recommendation from her outpatient [facility] neurosurgeon Fall precaution. Ortho vitals are positive, slow transition between lying/sitting/standing position. Patient made aware. 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 DVT prophylaxis: Heparin drip Full code Patient's daughter Ms. Ame Dang, contact #[phone]. Updated at bedside 05/22. Patient being discharged to home with following instruction at the point of discharge: Follow-up with your primary care physician within a week time and you will likely be ordered tests BMP/CBC/magnesium level. For your bilateral lung blood clots, you are started on Eliquis, you will likely benefit from establishing hematology doctor as an outpatient to evaluate for potential thrombophilia if anticoagulation were to be stopped. You will need Eliquis for indefinite period, further recommendation from your PCP. Your Eliquis is started on 05/24/2022 morning. You are supposed to take 10 mg twice a day dose for 14 doses, and then from 15th dose (day 8) on what you should be taking 5 mg twice a day. For your likely traumatic left pleural effusion, pleural fluid was taken out while in hospital, they are sent for culture and pathology, you will need to follow-up with PCP for final results on them. You might or might not be asked to establish relation with pulmonology After your PCP evaluation. You can take [id number] Tylenol for your right lower chest pain, which would likely improve with resorption of your lung clots in 2 to 3 weeks time. For your recurrent falls/weakness/ambulatory dysfunction, maintain recommendation from your outpatient [facility] neurosurgeon. You were also found to have orthostatic hypotension, as advised at the bedside, you will have to maintain slow transition between lying/sitting up/standing position to give your body time to react to different position so that your blood pressure does not fall abruptly and cause lightheadedness/dizziness/fall. Take your medications as prescribed. Discharge Exam GENERAL: Alert and oriented x3. NAD, on RA. HEENT: No pallor, no icterus. Pupils equal, round and reactive to light. Oral mucosa moist. NECK: No JVD, no neck masses. HEART: S1 and S2 heard. Regular rate and rhythm. No murmur, no gallop. RESPIRATORY SYSTEM: Normal AP diameter. No accessory muscle use. No wheezing, no crackles. ABDOMEN: Soft, bowel sounds present, nontender, no distention. CENTRAL NERVOUS SYSTEM: No facial droop. Speech is clear. Obeys simple commands. Moves extremities. EXTREMITIES: No edema, no erythema seen. Updated Medication List Medication Instructions Recorded Confirmed Type calcium carbonate 600 mg calcium 600 mg PO BID 03/20/19 05/22/22 History (1,500 mg) tablet (Calcium) multivitamin 1 tab PO QAM 03/20/19 05/22/22 History fluoxetine 20 mg capsule 20 mg PO QAM 04/14/20 05/22/22 History fluticasone 250 mcg-salmeterol 50 1 inh inhalation BID PRN Shortness 04/14/20 05/22/22 History mcg/dose blistr powdr for Of Breath Or Wheezing inhalation (Advair Diskus) fluticasone propionate 50 2 spray intranasal DAILY PRN 04/14/20 05/22/22 History mcg/actuation nasal Allergy Symptoms spray,suspension atorvastatin 40 mg tablet 40 mg PO DAILY #30 tabs 04/19/20 05/22/22 Rx polyethylene glycol 3350 17 17 g PO BID PRN constipation #510 04/19/20 05/22/22 Rx gram/dose oral powder (Miralax) grams lisinopril 5 mg tablet 5 mg PO DAILY 12/29/21 05/22/22 History albuterol sulfate 90 mcg/actuation 2 puff inhalation QID PRN 05/22/22 05/22/22 History aerosol inhaler (ProAir HFA) Shortness Of Breath Or Wheezing alendronate 70 mg tablet 70 mg PO WE 05/22/22 05/22/22 History cetirizine 10 mg tablet (Zyrtec) 10 mg PO DAILY 05/22/22 05/22/22 History cholecalciferol (vitamin D3) 125 125 mcg PO DAILY 05/22/22 05/22/22 History mcg (5,000 unit) tablet (Vitamin D3) fluoxetine 10 mg capsule 10 mg PO QAM 05/22/22 05/22/22 History melatonin 10 mg tablet 10 mg PO HS 05/22/22 05/22/22 History acetaminophen 325 mg tablet 650 mg PO Q8H 7 days #42 tabs 05/24/22 Rx apixaban 5 mg tablet (Eliquis) 5 mg PO BID 30 days #72 tabs 05/24/22 Rx Hospital Stay Data Consultations 05/21/22 23:46 ED Decision to Admit Stat 05/22/22 04:26 Consult Pulmonology Routine Diagnostic Imagining Performed 05/22/22 02:12 CT angio chest PE protocol Urgent 05/22/22 04:25 US venous doppler LE BI Routine 05/23/22 10:37 US point of care ultrasound Urgent Pending Results Patient Have Any Pending Studies at Discharge: Yes (Pleural fluid studies.) Discharge Instructions Given to Patient (Per Discharging Provider) Follow-up with your primary care physician within a week time and you will likely be ordered tests BMP/CBC/magnesium level. For your bilateral lung blood clots, you are started on Eliquis, you will likely benefit from establishing hematology doctor as an outpatient to evaluate for potential thrombophilia if anticoagulation were to be stopped. You will need Eliquis for indefinite period, further recommendation from your PCP. Your Eliquis is started on 05/24/2022 morning. You are supposed to take 10 mg twice a day dose for 14 doses, and then from 15th dose (day 8) on what you should be taking 5 mg twice a day. For your likely traumatic left pleural effusion, pleural fluid was taken out while in hospital, they are sent for culture and pathology, you will need to follow-up with PCP for final results on them. You might or might not be asked to establish relation with pulmonology After your PCP evaluation. You can take [id number] Tylenol for your right lower chest pain, which would likely improve with resorption of your lung clots in 2 to 3 weeks time. For your recurrent falls/weakness/ambulatory dysfunction, maintain recommendation from your outpatient [facility] neurosurgeon. You were also found to have orthostatic hypotension, as advised at the bedside, you will have to maintain slow transition between lying/sitting up/standing position to give your body time to react to different position so that your blood pressure does not fall abruptly and cause lightheadedness/dizziness/fall. Take your medications as prescribed. Total Time Total Time Spent Total Time Spent (In Minutes): 45
== END 2022-05-24 13:09 | disposition home or self-care (01) | DRG 176 ==
LOC: ED 21:17 → 2E 21:17 → SUATTDRO 05-22 05:13
DX: J98.11 Atelectasis; W19.XXXD Unspecified fall, subsequent encounter; G91.2 (Idiopathic) normal pressure hydrocephalus; I27.20 Pulmonary hypertension, unspecified; I95.1 Orthostatic hypotension; Y92.89 Other specified places as the place of occurrence of the external cause; I26.99 Other pulmonary embolism without acute cor pulmonale; F39 Unspecified mood [affective] disorder; S22.42XD Multiple fractures of ribs, left side, subsequent encounter for fracture with routine healing; Z91.040 Latex allergy status; J91.8 Pleural effusion in other conditions classified elsewhere; I08.3 Combined rheumatic disorders of mitral, aortic and tricuspid valves; I10 Essential (primary) hypertension; Z88.5 Allergy status to narcotic agent; R29.6 Repeated falls; S22.20XD Unspecified fracture of sternum, subsequent encounter for fracture with routine healing; Z98.2 Presence of cerebrospinal fluid drainage device; Z88.0 Allergy status to penicillin